=== PATIENT | male | born 1940 | race Caucasian/White ===

== ENCOUNTER 2017-02-03 13:26 | Inpatient (IN) | payer MEDICARE, OTHER ==
[2017-02-03] VITALS (10 sets, daily range): BP systolic 124–156; BP diastolic 76–113
[~2017-02-03] VITALS: Ht 177.8 cm; Wt 69.9 kg
[2017-02-03 15:52] LABS: HCO3 ABG 28 mmol/L (21-28); PCO2 ABG 33 mmHg (35-46); PO2 ABG 83 mmHg (65-108); SAT O2 ABG 96 % (92-99)
[2017-02-03] MEDS ORDERED: VANCOMYCIN PER PHARMACY MC PRN (16:00)
[2017-02-03 16:03] LABS: FIO2 ABG 35; PH ABG 7.55 (7.35-7.45)
[2017-02-03] MEDS ORDERED: HYDR-2666 PO (16:20)
[2017-02-03] MEDS ORDERED: VANC1VIA3 IV (16:20)
[2017-02-03] MEDS ORDERED: FOLI1TAB16 PO (16:20)
[2017-02-03] MEDS ORDERED: MULT-246 PO (16:20)
[2017-02-03] MEDS ORDERED: AMIO200T2 PO (16:20)
[2017-02-03] MEDS ORDERED: IPRA3AMP NEB (16:20)
[2017-02-03] MEDS ORDERED: ACET325T21 PO (16:20)
[2017-02-03] MEDS ORDERED: THIA100T8 PO (16:20)
[2017-02-03] MEDS ORDERED: PRED-220 PO (16:20)
[2017-02-03] MEDS ORDERED: BISA10SU2 RC (16:20)
[2017-02-03] MEDS ORDERED: LEVO250P IV (16:20)
[2017-02-03] MEDS ORDERED: CHLO1LIQ MC (16:20)
[2017-02-03] MEDS ORDERED: FAMO20TA5 PO (16:20)
[2017-02-03] MEDS ORDERED: FURO40TA4 PO (16:20)
[2017-02-03] MEDS ORDERED: ASPI81TA2 PO (16:20)
[2017-02-03] MEDS ORDERED: PIPE3.3710 IV (16:20)
[2017-02-03] MEDS ORDERED: VANCOMYCIN 1.75 GM in IV NORMAL SALINE 500ML BAG 500 ML IV ONE (16:30)
[2017-02-03] MEDS ORDERED: VANCOMYCIN 1 GM in IV NORMAL SALINE 250ML 250 ML IV SCH (17:00)
[2017-02-03] MEDS: MICAFUNGIN 100 MG in IV DEXTROSE 5% 100 ML IV SCH (19:01)
[2017-02-03] MEDS: PIPERACILLIN/TAZOBACTAM 3.375 GM in IV NORMAL SALINE 50ML 50 ML IV SCH (19:45)
[2017-02-03 21:15] LABS: BASO % 0 % (0-3); EOS % 0 % (0-3); HEMATOCRIT 24.2 % (39.0-53.0); HEMOGLOBIN 7.9 g/dL (13.0-17.5); LYMPH # 0.4 x10^3/uL (1.0-4.8); LYMPH % 2 % (24-48); MEAN CORPUSCULAR HEMOGLOBIN 33 pg (25-35); MEAN CORPUSCULAR HGB CONC 33 g/dL (31-37); MEAN CORPUSCULAR VOLUME 102 fL (79-100); MONO % 11 % (0-9); NEUT % 87 % (31-73); PLATELET COUNT 59 x10^3/uL (140-400); RED BLOOD COUNT 2.38 x10^6/uL (4.30-5.70); RED CELL DISTRIBUTION WIDTH 21.6 % (11.5-14.5)
[2017-02-03 21:23] LABS: INR 1.1 (0.8-1.1); PROTHROMBIN TIME PATIENT 13.9 SEC (11.7-14.0)
[2017-02-03 21:35] LABS: ALBUMIN 2.2 g/dL (3.4-5.0); ALBUMIN/GLOBULIN RATIO 0.6 (1.0-1.7); CREATININE 0.9 mg/dL (0.7-1.3); GFR 81.6; MAGNESIUM 2.5 mg/dL (1.8-2.4); POTASSIUM 3.8 mmol/L (3.5-5.1); TOTAL BILIRUBIN 0.8 mg/dL (0.2-1.0); TOTAL PROTEIN 5.8 g/dL (6.4-8.2)
[2017-02-03 21:42] LABS: PLT ESTIMATE DECREASED (ADEQUATE)
[2017-02-03 21:43] LABS: ANISOCYTOSIS MOD; POLYCHROMASIA SLIGHT
--- NOTE | 2017-02-03 22:30 | HP ---
ADMIT DATE: 02/03/2017 CHIEF COMPLAINT: Respiratory failure, probable sepsis. HISTORY OF PRESENT ILLNESS: The patient is a pleasant elderly male who I have been caring for at [facility] for the past few days. He actually was at [facility] within the past week where he had developed fulminant respiratory failure and ended up with a tracheostomy and PEG. Basically today when I saw him, he was crashing. He just did not look good. His pressures were highly variant from [address] down to 70 systolically. He was tachypneic, tachycardic. His pH was off at 7.55 on his ABG. I decided to go ahead and transfer him here to the facility. I talked to Dr. Velasco just before he came here. He is now in the ICU room 107 where he is slightly improved, but very ill. PAST MEDICAL HISTORY: Alcohol abuse, recent pneumonia, respiratory failure, trach, PEG, appendectomy, hiatal hernia, hip surgery, back surgeries with hardware. He has got a spinal stimulator, acute myocardial infarction with stents, COPD. ALLERGIES: TETRACYCLINE. FAMILY HISTORY: Coronary artery disease. SOCIAL HISTORY: He used to work in [employer]. He drinks a lot of beer and Black Russians according to his . He quit smoking years ago, but has COPD. He has been for 35 years. They have 3 children and 2 stepchildren. MEDICATIONS: Reviewed, please refer to the MRAD. REVIEW OF SYSTEMS: Unobtainable, the patient is on the vent. PHYSICAL EXAMINATION: VITAL SIGNS: Temperature 100.9, respirations 28, blood pressure 152/70, O2 sat 95%. He is currently on 35%. GENERAL: He is sedated. HEART: Distant S1, S2, tachycardic. LUNGS: Coarse. ABDOMEN: Soft, decreased bowel sounds. EXTREMITIES: 1+ edema. SKIN: He has got multiple tears. Please see the pictures. ENDOCRINE: No thyromegaly. LYMPHATICS: No cervical nodes. HEMATOPOIETIC: He has got multiple bruises. LABORATORY DATA: Pending. ASSESSMENT AND PLAN: Probable sepsis in an elderly male who already has respiratory failure, on the vent with a trach, with a percutaneous endoscopic gastrostomy and multiple comorbidities. His prognosis is quite poor. I explained to the family that he may not make it through this, but we are going to do our best. They understand. They are reasonable. They have made him a do not resuscitate. For now, we are giving broad spectrum antibiotics, antifungals. We have consulted Infectious Disease. We certainly appreciate Dr. Holguin's input. We will schuster culture him, consult Dr. Velasco for vent management, ICU monitoring. PROGNOSIS: Guarded. Total time today 49 minutes. CHAYITO HERRERA DO DR: CARI/gita JOB#: [id number] / [id number]
[2017-02-03] MEDS: ACETAMINOPHEN 650 MG/20.3 ML SOLUTION. PEG PRN (23:53)
[2017-02-04] VITALS (22 sets, daily range): BP systolic 98–172; BP diastolic 59–106
[2017-02-04] MEDS: PIPERACILLIN/TAZOBACTAM 3.375 GM in IV NORMAL SALINE 50ML 50 ML IV SCH ×4 (00:38→18:24)
[2017-02-04 06:26] LABS: ALBUMIN 2.1 g/dL (3.4-5.0); ALBUMIN/GLOBULIN RATIO 0.7 (1.0-1.7); CALCIUM 7.9 mg/dL (8.5-10.1); CREATININE 0.9 mg/dL (0.7-1.3); GFR 81.6; MAGNESIUM 2.6 mg/dL (1.8-2.4); POTASSIUM 3.7 mmol/L (3.5-5.1); TOTAL BILIRUBIN 0.9 mg/dL (0.2-1.0); TOTAL PROTEIN 5.2 g/dL (6.4-8.2)
--- NOTE | 2017-02-04 07:18 | PDOC ---
Infectious Disease Note Vital Sign Vital Signs Vital Signs Date Time Temp Pulse Resp B/P Pulse Ox O2 Delivery O2 Flow Rate FiO2 02/04/17 05:40 100 Ventilator 02/04/17 05:00 121 18 135/85 02/04/17 03:00 98.5 98.5 Labs Lab Laboratory Tests Test 02/03/17 07:24 02/03/17 15:30 02/03/17 19:54 02/04/17 00:06 White Blood Count 22.0x10^3/uL (4.0-11.0) Red Blood Count 2.38x10^6/uL (4.30-5.70) Hemoglobin 7.9g/dL (13.0-17.5) Hematocrit 24.2% (39.0-53.0) Mean Corpuscular Volume 102fL (79-100) Mean Corpuscular Hemoglobin 33pg (25-35) Mean Corpuscular Hemoglobin Concent 33g/dL (31-37) Red Cell Distribution Width 21.6% (11.5-14.5) Platelet Count 59x10^3/uL (140-400) Neutrophils (%) (Auto) 87% (31-73) Lymphocytes (%) (Auto) 2% (24-48) Monocytes (%) (Auto) 11% (0-9) Eosinophils (%) (Auto) 0% (0-3) Basophils (%) (Auto) 0% (0-3) Neutrophils # (Auto) 19.1x10^3uL (1.8-7.7) Lymphocytes # (Auto) 0.4x10^3/uL (1.0-4.8) Monocytes # (Auto) 2.5x10^3/uL (0.0-1.1) Eosinophils # (Auto) 0.0x10^3/uL (0.0-0.7) Basophils # (Auto) 0.0x10^3/uL (0.0-0.2) Segmented Neutrophils % 59% (35-66) Band Neutrophils % 22% (0-9) Lymphocytes % 4% (24-48) Monocytes % 11% (0-10) Metamyelocytes % 2% (0-0) Myelocytes % 2% (0-0) Platelet Estimate Decreased (ADEQUATE) Polychromasia Slight Anisocytosis Mod Prothrombin Time 13.9SEC (11.7-14.0) Prothromb Time International Ratio 1.1 (0.8-1.1) Sodium Level 141mmol/L (136-145) Potassium Level 3.8mmol/L (3.5-5.1) Chloride Level 103mmol/L (98-107) Carbon Dioxide Level 32mmol/L (21-32) Anion Gap 6 (6-14) Blood Urea Nitrogen 33mg/dL (8-26) Creatinine 0.9mg/dL (0.7-1.3) Estimated GFR (Cockcroft-Gault) 81.6 BUN/Creatinine Ratio 37 (6-20) Glucose Level 109mg/dL (70-99) Calcium Level 8.0mg/dL (8.5-10.1) Magnesium Level 2.5mg/dL (1.8-2.4) Total Bilirubin 0.8mg/dL (0.2-1.0) Aspartate Amino Transf (AST/SGOT) 41U/L (15-37) Alanine Aminotransferase (ALT/SGPT) 43U/L (16-63) Alkaline Phosphatase 169U/L (46-116) Total Protein 5.8g/dL (6.4-8.2) Albumin 2.2g/dL (3.4-5.0) Albumin/Globulin Ratio 0.6 (1.0-1.7) O2 Saturation 96% (92-99) Arterial Blood pH 7.55 (7.35-7.45) Arterial Blood pCO2 at Patient Temp 33mmHg (35-46) Arterial Blood pO2 at Patient Temp 83mmHg (65-108) Arterial Blood HCO3 28mmol/L (21-28) Arterial Blood Base Excess 5mmol/L (-3-3) FiO2 35 Lactic Acid Level 2.2mmol/L (0.4-2.0) Glucose (Fingerstick) 85mg/dL (70-99) Test 02/04/17 05:51 02/04/17 05:53 Glucose (Fingerstick) 112mg/dL (70-99) Sodium Level 144mmol/L (136-145) Potassium Level 3.7mmol/L (3.5-5.1) Chloride Level 105mmol/L (98-107) Carbon Dioxide Level 32mmol/L (21-32) Anion Gap 7 (6-14) Blood Urea Nitrogen 36mg/dL (8-26) Creatinine 0.9mg/dL (0.7-1.3) Estimated GFR (Cockcroft-Gault) 81.6 BUN/Creatinine Ratio 40 (6-20) Glucose Level 122mg/dL (70-99) Calcium Level 7.9mg/dL (8.5-10.1) Magnesium Level 2.6mg/dL (1.8-2.4) Total Bilirubin 0.9mg/dL (0.2-1.0) Aspartate Amino Transf (AST/SGOT) 37U/L (15-37) Alanine Aminotransferase (ALT/SGPT) 40U/L (16-63) Alkaline Phosphatase 155U/L (46-116) Total Protein 5.2g/dL (6.4-8.2) Albumin 2.1g/dL (3.4-5.0) Albumin/Globulin Ratio 0.7 (1.0-1.7) Objective Assessment Fever - despite Vanc/Levoflox/Zosyn 02/01 Leukocytosis Encephalopathy Tetracycline allergy Afib H/o MRSA pneumonia H/o [place] H/o AFB sputum sent to [facility] 01/29. Grew too rapidly for TB. D/w [place] micro this am Archnoid cyst right hemisphere S/p Trach/PEG Plan Plan of Care I dc'd Levofloxacin with Afib Per report a PICC was removed at [facility] I added Micafungin last evening I Cont Zosyn/Vanc and repeated blood cults 02/03 Will now change Vanc to Zyvox MRI head - neurology consulted F/u labs this am including Procalcitonin and cults from [facility] D/w [facility] - they have not received any cults yet Thank you Reviewed [facility] record Critically ill 35 mins CC time # [id number] HARRIET CORDERO MD Feb 04, 2017 07:18
--- NOTE | 2017-02-04 07:38 | RAD ---
Portable chest, 02/04/2017: History: Sepsis No previous radiographs are available at this time for comparison purposes. A tracheostomy tube is in place in satisfactory position. A spinal stimulator lead is projected over the lower thoracic spinal canal. The heart size is normal. There is calcific plaquing of aorta. There are patchy bilateral pulmonary infiltrates, most prominent in the right parahilar region and both lung bases. The underlying pulmonary vascularity is poorly defined. There is blunting of the lateral costophrenic angles compatible with a small amount of pleural fluid. Apical pleural-parenchymal opacities, right greater than left, are probably due to scarring. There appears to be fissural extension of pleural fluid laterally on the right. IMPRESSION: 1. Patchy bilateral pulmonary infiltrates suggesting pulmonary edema and/or pneumonia. 2. Small bilateral pleural effusions. 3. Probable underlying pleural-parenchymal scarring.
[2017-02-04] MEDS ORDERED: ONDANSETRON PF 4 MG/2 ML VIAL. IV PRN (08:00)
[2017-02-04] MEDS ORDERED: HYDROCODONE/APAP 5/325MG TABLET. PO PRN (08:00)
[2017-02-04] MEDS ORDERED: BISACODYL 10 MG SUPP.RECT. RC PRN (08:00)
[2017-02-04 08:07] LABS: BASO % 0 % (0-3); EOS % 0 % (0-3); HEMOGLOBIN 7.7 g/dL (13.0-17.5); LYMPH # 0.3 x10^3/uL (1.0-4.8); LYMPH % 1 % (24-48); MEAN CORPUSCULAR HEMOGLOBIN 33 pg (25-35); MEAN CORPUSCULAR HGB CONC 32 g/dL (31-37); MEAN CORPUSCULAR VOLUME 103 fL (79-100); MONO % 17 % (0-9); NEUT % 82 % (31-73); PLATELET COUNT 56 x10^3/uL (140-400); RED BLOOD COUNT 2.34 x10^6/uL (4.30-5.70); WHITE BLOOD COUNT 22.7 x10^3/uL (4.0-11.0)
[2017-02-04] MEDS: IPRATRPIUM/ALBUTEROL 0.5/2.5MG 3 ML NEBU. NEB SCH ×4 (08:32→19:26)
[2017-02-04] MEDS ORDERED: PANTOPRAZOLE IV PUSH 40 MG VIAL. IVP SCH (09:00)
[2017-02-04] MEDS: MULTIVITAMIN with MINERAL TABLET. PO SCH (09:00)
[2017-02-04 09:05] LABS: BILIRUBIN,URINE NEGATIVE (NEG); GLUCOSE,URINE NEGATIVE (NEG); NITRITE,URINE NEGATIVE (NEG); PROTEIN,URINE 100 mg/dL (NEG-TRACE); UROBILINOGEN,URINE 0.2 mg/dL (0.2 mg/dL)
--- NOTE | 2017-02-04 09:25 | PDOC ---
PULMONARY PROGRESS NOTES Vitals Vital Signs Date Time Temp Pulse Resp B/P Pulse Ox O2 Delivery O2 Flow Rate FiO2 02/04/17 08:32 100 Ventilator 02/04/17 05:00 121 18 135/85 02/04/17 03:00 98.5 98.5 Labs Laboratory Tests Test 02/03/17 07:24 02/03/17 15:30 02/03/17 19:54 02/04/17 00:06 White Blood Count 22.0x10^3/uL (4.0-11.0) Red Blood Count 2.38x10^6/uL (4.30-5.70) Hemoglobin 7.9g/dL (13.0-17.5) Hematocrit 24.2% (39.0-53.0) Mean Corpuscular Volume 102fL (79-100) Mean Corpuscular Hemoglobin 33pg (25-35) Mean Corpuscular Hemoglobin Concent 33g/dL (31-37) Red Cell Distribution Width 21.6% (11.5-14.5) Platelet Count 59x10^3/uL (140-400) Neutrophils (%) (Auto) 87% (31-73) Lymphocytes (%) (Auto) 2% (24-48) Monocytes (%) (Auto) 11% (0-9) Eosinophils (%) (Auto) 0% (0-3) Basophils (%) (Auto) 0% (0-3) Neutrophils # (Auto) 19.1x10^3uL (1.8-7.7) Lymphocytes # (Auto) 0.4x10^3/uL (1.0-4.8) Monocytes # (Auto) 2.5x10^3/uL (0.0-1.1) Eosinophils # (Auto) 0.0x10^3/uL (0.0-0.7) Basophils # (Auto) 0.0x10^3/uL (0.0-0.2) Segmented Neutrophils % 59% (35-66) Band Neutrophils % 22% (0-9) Lymphocytes % 4% (24-48) Monocytes % 11% (0-10) Metamyelocytes % 2% (0-0) Myelocytes % 2% (0-0) Platelet Estimate Decreased (ADEQUATE) Polychromasia Slight Anisocytosis Mod Prothrombin Time 13.9SEC (11.7-14.0) Prothromb Time International Ratio 1.1 (0.8-1.1) Sodium Level 141mmol/L (136-145) Potassium Level 3.8mmol/L (3.5-5.1) Chloride Level 103mmol/L (98-107) Carbon Dioxide Level 32mmol/L (21-32) Anion Gap 6 (6-14) Blood Urea Nitrogen 33mg/dL (8-26) Creatinine 0.9mg/dL (0.7-1.3) Estimated GFR (Cockcroft-Gault) 81.6 BUN/Creatinine Ratio 37 (6-20) Glucose Level 109mg/dL (70-99) Calcium Level 8.0mg/dL (8.5-10.1) Magnesium Level 2.5mg/dL (1.8-2.4) Total Bilirubin 0.8mg/dL (0.2-1.0) Aspartate Amino Transf (AST/SGOT) 41U/L (15-37) Alanine Aminotransferase (ALT/SGPT) 43U/L (16-63) Alkaline Phosphatase 169U/L (46-116) Total Protein 5.8g/dL (6.4-8.2) Albumin 2.2g/dL (3.4-5.0) Albumin/Globulin Ratio 0.6 (1.0-1.7) O2 Saturation 96% (92-99) Arterial Blood pH 7.55 (7.35-7.45) Arterial Blood pCO2 at Patient Temp 33mmHg (35-46) Arterial Blood pO2 at Patient Temp 83mmHg (65-108) Arterial Blood HCO3 28mmol/L (21-28) Arterial Blood Base Excess 5mmol/L (-3-3) FiO2 35 Lactic Acid Level 2.2mmol/L (0.4-2.0) Glucose (Fingerstick) 85mg/dL (70-99) Test 02/04/17 05:51 02/04/17 05:53 02/04/17 07:55 Glucose (Fingerstick) 112mg/dL (70-99) Sodium Level 144mmol/L (136-145) Potassium Level 3.7mmol/L (3.5-5.1) Chloride Level 105mmol/L (98-107) Carbon Dioxide Level 32mmol/L (21-32) Anion Gap 7 (6-14) Blood Urea Nitrogen 36mg/dL (8-26) Creatinine 0.9mg/dL (0.7-1.3) Estimated GFR (Cockcroft-Gault) 81.6 BUN/Creatinine Ratio 40 (6-20) Glucose Level 122mg/dL (70-99) Calcium Level 7.9mg/dL (8.5-10.1) Magnesium Level 2.6mg/dL (1.8-2.4) Total Bilirubin 0.9mg/dL (0.2-1.0) Aspartate Amino Transf (AST/SGOT) 37U/L (15-37) Alanine Aminotransferase (ALT/SGPT) 40U/L (16-63) Alkaline Phosphatase 155U/L (46-116) Total Protein 5.2g/dL (6.4-8.2) Albumin 2.1g/dL (3.4-5.0) Albumin/Globulin Ratio 0.7 (1.0-1.7) White Blood Count 22.7x10^3/uL (4.0-11.0) Red Blood Count 2.34x10^6/uL (4.30-5.70) Hemoglobin 7.7g/dL (13.0-17.5) Hematocrit 24.0% (39.0-53.0) Mean Corpuscular Volume 103fL (79-100) Mean Corpuscular Hemoglobin 33pg (25-35) Mean Corpuscular Hemoglobin Concent 32g/dL (31-37) Red Cell Distribution Width 22.0% (11.5-14.5) Platelet Count 56x10^3/uL (140-400) Neutrophils (%) (Auto) 82% (31-73) Lymphocytes (%) (Auto) 1% (24-48) Monocytes (%) (Auto) 17% (0-9) Eosinophils (%) (Auto) 0% (0-3) Basophils (%) (Auto) 0% (0-3) Neutrophils # (Auto) 18.5x10^3uL (1.8-7.7) Lymphocytes # (Auto) 0.3x10^3/uL (1.0-4.8) Monocytes # (Auto) 3.9x10^3/uL (0.0-1.1) Eosinophils # (Auto) 0.0x10^3/uL (0.0-0.7) Basophils # (Auto) 0.0x10^3/uL (0.0-0.2) Procalcitonin 0.23ng/mL (0.00-0.10) Laboratory Tests Test 02/03/17 15:30 02/03/17 19:54 02/04/17 00:06 02/04/17 05:51 O2 Saturation 96% (92-99) Arterial Blood pH 7.55 (7.35-7.45) Arterial Blood pCO2 at Patient Temp 33mmHg (35-46) Arterial Blood pO2 at Patient Temp 83mmHg (65-108) Arterial Blood HCO3 28mmol/L (21-28) Arterial Blood Base Excess 5mmol/L (-3-3) FiO2 35 Lactic Acid Level 2.2mmol/L (0.4-2.0) Glucose (Fingerstick) 85mg/dL (70-99) 112mg/dL (70-99) Test 02/04/17 05:53 02/04/17 07:55 Sodium Level 144mmol/L (136-145) Potassium Level 3.7mmol/L (3.5-5.1) Chloride Level 105mmol/L (98-107) Carbon Dioxide Level 32mmol/L (21-32) Anion Gap 7 (6-14) Blood Urea Nitrogen 36mg/dL (8-26) Creatinine 0.9mg/dL (0.7-1.3) Estimated GFR (Cockcroft-Gault) 81.6 BUN/Creatinine Ratio 40 (6-20) Glucose Level 122mg/dL (70-99) Calcium Level 7.9mg/dL (8.5-10.1) Magnesium Level 2.6mg/dL (1.8-2.4) Total Bilirubin 0.9mg/dL (0.2-1.0) Aspartate Amino Transf (AST/SGOT) 37U/L (15-37) Alanine Aminotransferase (ALT/SGPT) 40U/L (16-63) Alkaline Phosphatase 155U/L (46-116) Total Protein 5.2g/dL (6.4-8.2) Albumin 2.1g/dL (3.4-5.0) Albumin/Globulin Ratio 0.7 (1.0-1.7) White Blood Count 22.7x10^3/uL (4.0-11.0) Red Blood Count 2.34x10^6/uL (4.30-5.70) Hemoglobin 7.7g/dL (13.0-17.5) Hematocrit 24.0% (39.0-53.0) Mean Corpuscular Volume 103fL (79-100) Mean Corpuscular Hemoglobin 33pg (25-35) Mean Corpuscular Hemoglobin Concent 32g/dL (31-37) Red Cell Distribution Width 22.0% (11.5-14.5) Platelet Count 56x10^3/uL (140-400) Neutrophils (%) (Auto) 82% (31-73) Lymphocytes (%) (Auto) 1% (24-48) Monocytes (%) (Auto) 17% (0-9) Eosinophils (%) (Auto) 0% (0-3) Basophils (%) (Auto) 0% (0-3) Neutrophils # (Auto) 18.5x10^3uL (1.8-7.7) Lymphocytes # (Auto) 0.3x10^3/uL (1.0-4.8) Monocytes # (Auto) 3.9x10^3/uL (0.0-1.1) Eosinophils # (Auto) 0.0x10^3/uL (0.0-0.7) Basophils # (Auto) 0.0x10^3/uL (0.0-0.2) Procalcitonin 0.23ng/mL (0.00-0.10) Medications Active Scripts Medications Dose Route/Sig Days Date Category Duoneb 0.5-3(2.5) Mg/3 Ml (Albuterol/Ipratropium) 3 Ml Ampul.neb 3 Ml NEB QID 02/03/17 Reported Hydrocodone-Apap 5-325 (Hydrocodone Bit/Acetaminophen) 1 Each Tablet 0.5 Tab PO PRN Q4HRS PRN 02/03/17 Reported Amiodarone Hcl 200 Mg Tablet 1 Tab PO DAILY 02/03/17 Reported Aspirin 81 Mg Tab.chew 1 Tab PO DAILY 02/03/17 Reported Bisacodyl 10 Mg Supp.rect 10 Mg RC PRN BID PRN 02/03/17 Reported Chlorhexidine Flavor (Chlorhexidine) 1 Ml Liquid 1 Ml MC BID 02/03/17 Reported Folic Acid 1 Mg Tablet 1 Tab PO DAILY 02/03/17 Reported Furosemide 40 Mg Tablet 1 Tab PO DAILY 02/03/17 Reported Multi-Vitamin Daily (Multivitamin) 1 Each Tablet 1 Each PO DAILY16 02/03/17 Reported Thiamine Hcl 100 Mg Tablet 100 Mg PO DAILY 02/03/17 Reported Prednisone 10 Mg Tablet 10 Mg PO DAILY 02/03/17 Reported Acetaminophen 325 Mg Tablet 650 Mg PO PRN Q6HRS PRN 02/03/17 Reported Famotidine 20 Mg Tablet 20 Mg PO BID 02/03/17 Reported Levofloxacin-D5w 250 Mg/50 Ml (Levofloxacin/D5w) 250 Mg/50 Ml Piggyback 250 Mg IV Q24H 02/03/17 Reported Piperacil-Tazobact 3.375 Gm Vl (Piperacillin Sodium/Tazobactam) 3.375 Gm Vial 3.375 Gm IV Q6HRS 02/03/17 Reported Vancomycin Hcl 1 Gm Vial 1 Gm IV DAILY 02/03/17 Reported Impression . [id number] A/C/ RESP FAILURE SEC TO NEW SEPSIS POA FEVER TOXIC/METABOLIC ENCEPHALOPATHY HAD SEVERAL DISCUSSION WITH FAMILY, IF NO SIGNIFICANT IMPROVEMENT IN NEXT 24 HOURS THEY ARE CONSIDERING WITHDRAWAL OF CARE AND ALLOW NATURAL ROSALES CALHOUN MD Feb 04, 2017 09:25
--- NOTE | 2017-02-04 09:28 | PDOC ---
PROGRESS NOTES Chief Complaint Chief Complaint 1. Lung CA stage 4 with mets 2. Dysphagia and chronic encephalopathy with indwelling trach and PEG 3. 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 S/p sepsis 5. SIRS, possibly new sepsis again 6. AOCD 7. LEukocytosis 8. Thrombocytopenia 9. DNR History of Present Illness History of Present Illness Sinus tachy Non verbal - baseline? Antibiotics.antifungal adjusted by ID CXR: I have personally reviewed: IMPRESSION: 1. Patchy bilateral pulmonary infiltrates suggesting pulmonary edema and/or pneumonia. 2. Small bilateral pleural effusions. 3. Probable underlying pleural-parenchymal scarring. No UA yet MAR reviewed, on ASA, platelets low side K 3.8, getting PO lasix 40 qD LActate 2.2 PLAn: Ok to start kcl 20 PEG daily LAbs daily Nutrition consult for TF Follow ID recs SCDs only (low [platelets) May hold ASA for now, risk of bleeding Await UA REcheck lactate libby AM Monitor fevers DNR Vitals Vitals Vital Signs Date Time Temp Pulse Resp B/P Pulse Ox O2 Delivery O2 Flow Rate FiO2 02/04/17 05:40 100 Ventilator 02/04/17 05:00 121 18 135/85 02/04/17 03:00 98.5 98.5 Physical Exam General: No acute distress Heart: Other (sinus tachy) Abdomen: Normal bowel sounds, Soft, Other (pos pEG) Extremities: No clubbing, No cyanosis Skin: No rashes Labs LABS Laboratory Tests Test 02/03/17 15:30 02/03/17 19:54 02/04/17 00:06 02/04/17 05:51 O2 Saturation 96% (92-99) Arterial Blood pH 7.55 (7.35-7.45) Arterial Blood pCO2 at Patient Temp 33mmHg (35-46) Arterial Blood pO2 at Patient Temp 83mmHg (65-108) Arterial Blood HCO3 28mmol/L (21-28) Arterial Blood Base Excess 5mmol/L (-3-3) FiO2 35 Lactic Acid Level 2.2mmol/L (0.4-2.0) Glucose (Fingerstick) 85mg/dL (70-99) 112mg/dL (70-99) Test 02/04/17 05:53 02/04/17 07:55 Sodium Level 144mmol/L (136-145) Potassium Level 3.7mmol/L (3.5-5.1) Chloride Level 105mmol/L (98-107) Carbon Dioxide Level 32mmol/L (21-32) Anion Gap 7 (6-14) Blood Urea Nitrogen 36mg/dL (8-26) Creatinine 0.9mg/dL (0.7-1.3) Estimated GFR (Cockcroft-Gault) 81.6 BUN/Creatinine Ratio 40 (6-20) Glucose Level 122mg/dL (70-99) Calcium Level 7.9mg/dL (8.5-10.1) Magnesium Level 2.6mg/dL (1.8-2.4) Total Bilirubin 0.9mg/dL (0.2-1.0) Aspartate Amino Transf (AST/SGOT) 37U/L (15-37) Alanine Aminotransferase (ALT/SGPT) 40U/L (16-63) Alkaline Phosphatase 155U/L (46-116) Total Protein 5.2g/dL (6.4-8.2) Albumin 2.1g/dL (3.4-5.0) Albumin/Globulin Ratio 0.7 (1.0-1.7) White Blood Count 22.7x10^3/uL (4.0-11.0) Red Blood Count 2.34x10^6/uL (4.30-5.70) Hemoglobin 7.7g/dL (13.0-17.5) Hematocrit 24.0% (39.0-53.0) Mean Corpuscular Volume 103fL (79-100) Mean Corpuscular Hemoglobin 33pg (25-35) Mean Corpuscular Hemoglobin Concent 32g/dL (31-37) Red Cell Distribution Width 22.0% (11.5-14.5) Platelet Count 56x10^3/uL (140-400) Neutrophils (%) (Auto) 82% (31-73) Lymphocytes (%) (Auto) 1% (24-48) Monocytes (%) (Auto) 17% (0-9) Eosinophils (%) (Auto) 0% (0-3) Basophils (%) (Auto) 0% (0-3) Neutrophils # (Auto) 18.5x10^3uL (1.8-7.7) Lymphocytes # (Auto) 0.3x10^3/uL (1.0-4.8) Monocytes # (Auto) 3.9x10^3/uL (0.0-1.1) Eosinophils # (Auto) 0.0x10^3/uL (0.0-0.7) Basophils # (Auto) 0.0x10^3/uL (0.0-0.2) Procalcitonin 0.23ng/mL (0.00-0.10) Review of Systems Review of Systems non verbal Assessment and Plan Assessmemt and Plan Problems Medical Problems: (1) Acute respiratory failure Status: Acute Problems: Comment Review of Relevant I have reviewed the following items yon (where applicable) has been applied. Labs Laboratory Tests Test 02/03/17 07:24 02/03/17 15:30 02/03/17 19:54 02/04/17 00:06 White Blood Count 22.0x10^3/uL (4.0-11.0) Red Blood Count 2.38x10^6/uL (4.30-5.70) Hemoglobin 7.9g/dL (13.0-17.5) Hematocrit 24.2% (39.0-53.0) Mean Corpuscular Volume 102fL (79-100) Mean Corpuscular Hemoglobin 33pg (25-35) Mean Corpuscular Hemoglobin Concent 33g/dL (31-37) Red Cell Distribution Width 21.6% (11.5-14.5) Platelet Count 59x10^3/uL (140-400) Neutrophils (%) (Auto) 87% (31-73) Lymphocytes (%) (Auto) 2% (24-48) Monocytes (%) (Auto) 11% (0-9) Eosinophils (%) (Auto) 0% (0-3) Basophils (%) (Auto) 0% (0-3) Neutrophils # (Auto) 19.1x10^3uL (1.8-7.7) Lymphocytes # (Auto) 0.4x10^3/uL (1.0-4.8) Monocytes # (Auto) 2.5x10^3/uL (0.0-1.1) Eosinophils # (Auto) 0.0x10^3/uL (0.0-0.7) Basophils # (Auto) 0.0x10^3/uL (0.0-0.2) Segmented Neutrophils % 59% (35-66) Band Neutrophils % 22% (0-9) Lymphocytes % 4% (24-48) Monocytes % 11% (0-10) Metamyelocytes % 2% (0-0) Myelocytes % 2% (0-0) Platelet Estimate Decreased (ADEQUATE) Polychromasia Slight Anisocytosis Mod Prothrombin Time 13.9SEC (11.7-14.0) Prothromb Time International Ratio 1.1 (0.8-1.1) Sodium Level 141mmol/L (136-145) Potassium Level 3.8mmol/L (3.5-5.1) Chloride Level 103mmol/L (98-107) Carbon Dioxide Level 32mmol/L (21-32) Anion Gap 6 (6-14) Blood Urea Nitrogen 33mg/dL (8-26) Creatinine 0.9mg/dL (0.7-1.3) Estimated GFR (Cockcroft-Gault) 81.6 BUN/Creatinine Ratio 37 (6-20) Glucose Level 109mg/dL (70-99) Calcium Level 8.0mg/dL (8.5-10.1) Magnesium Level 2.5mg/dL (1.8-2.4) Total Bilirubin 0.8mg/dL (0.2-1.0) Aspartate Amino Transf (AST/SGOT) 41U/L (15-37) Alanine Aminotransferase (ALT/SGPT) 43U/L (16-63) Alkaline Phosphatase 169U/L (46-116) Total Protein 5.8g/dL (6.4-8.2) Albumin 2.2g/dL (3.4-5.0) Albumin/Globulin Ratio 0.6 (1.0-1.7) O2 Saturation 96% (92-99) Arterial Blood pH 7.55 (7.35-7.45) Arterial Blood pCO2 at Patient Temp 33mmHg (35-46) Arterial Blood pO2 at Patient Temp 83mmHg (65-108) Arterial Blood HCO3 28mmol/L (21-28) Arterial Blood Base Excess 5mmol/L (-3-3) FiO2 35 Lactic Acid Level 2.2mmol/L (0.4-2.0) Glucose (Fingerstick) 85mg/dL (70-99) Test 02/04/17 05:51 02/04/17 05:53 02/04/17 07:55 Glucose (Fingerstick) 112mg/dL (70-99) Sodium Level 144mmol/L (136-145) Potassium Level 3.7mmol/L (3.5-5.1) Chloride Level 105mmol/L (98-107) Carbon Dioxide Level 32mmol/L (21-32) Anion Gap 7 (6-14) Blood Urea Nitrogen 36mg/dL (8-26) Creatinine 0.9mg/dL (0.7-1.3) Estimated GFR (Cockcroft-Gault) 81.6 BUN/Creatinine Ratio 40 (6-20) Glucose Level 122mg/dL (70-99) Calcium Level 7.9mg/dL (8.5-10.1) Magnesium Level 2.6mg/dL (1.8-2.4) Total Bilirubin 0.9mg/dL (0.2-1.0) Aspartate Amino Transf (AST/SGOT) 37U/L (15-37) Alanine Aminotransferase (ALT/SGPT) 40U/L (16-63) Alkaline Phosphatase 155U/L (46-116) Total Protein 5.2g/dL (6.4-8.2) Albumin 2.1g/dL (3.4-5.0) Albumin/Globulin Ratio 0.7 (1.0-1.7) White Blood Count 22.7x10^3/uL (4.0-11.0) Red Blood Count 2.34x10^6/uL (4.30-5.70) Hemoglobin 7.7g/dL (13.0-17.5) Hematocrit 24.0% (39.0-53.0) Mean Corpuscular Volume 103fL (79-100) Mean Corpuscular Hemoglobin 33pg (25-35) Mean Corpuscular Hemoglobin Concent 32g/dL (31-37) Red Cell Distribution Width 22.0% (11.5-14.5) Platelet Count 56x10^3/uL (140-400) Neutrophils (%) (Auto) 82% (31-73) Lymphocytes (%) (Auto) 1% (24-48) Monocytes (%) (Auto) 17% (0-9) Eosinophils (%) (Auto) 0% (0-3) Basophils (%) (Auto) 0% (0-3) Neutrophils # (Auto) 18.5x10^3uL (1.8-7.7) Lymphocytes # (Auto) 0.3x10^3/uL (1.0-4.8) Monocytes # (Auto) 3.9x10^3/uL (0.0-1.1) Eosinophils # (Auto) 0.0x10^3/uL (0.0-0.7) Basophils # (Auto) 0.0x10^3/uL (0.0-0.2) Procalcitonin 0.23ng/mL (0.00-0.10) Laboratory Tests Test 02/03/17 15:30 02/03/17 19:54 02/04/17 00:06 02/04/17 05:51 O2 Saturation 96% (92-99) Arterial Blood pH 7.55 (7.35-7.45) Arterial Blood pCO2 at Patient Temp 33mmHg (35-46) Arterial Blood pO2 at Patient Temp 83mmHg (65-108) Arterial Blood HCO3 28mmol/L (21-28) Arterial Blood Base Excess 5mmol/L (-3-3) FiO2 35 Lactic Acid Level 2.2mmol/L (0.4-2.0) Glucose (Fingerstick) 85mg/dL (70-99) 112mg/dL (70-99) Test 02/04/17 05:53 02/04/17 07:55 Sodium Level 144mmol/L (136-145) Potassium Level 3.7mmol/L (3.5-5.1) Chloride Level 105mmol/L (98-107) Carbon Dioxide Level 32mmol/L (21-32) Anion Gap 7 (6-14) Blood Urea Nitrogen 36mg/dL (8-26) Creatinine 0.9mg/dL (0.7-1.3) Estimated GFR (Cockcroft-Gault) 81.6 BUN/Creatinine Ratio 40 (6-20) Glucose Level 122mg/dL (70-99) Calcium Level 7.9mg/dL (8.5-10.1) Magnesium Level 2.6mg/dL (1.8-2.4) Total Bilirubin 0.9mg/dL (0.2-1.0) Aspartate Amino Transf (AST/SGOT) 37U/L (15-37) Alanine Aminotransferase (ALT/SGPT) 40U/L (16-63) Alkaline Phosphatase 155U/L (46-116) Total Protein 5.2g/dL (6.4-8.2) Albumin 2.1g/dL (3.4-5.0) Albumin/Globulin Ratio 0.7 (1.0-1.7) White Blood Count 22.7x10^3/uL (4.0-11.0) Red Blood Count 2.34x10^6/uL (4.30-5.70) Hemoglobin 7.7g/dL (13.0-17.5) Hematocrit 24.0% (39.0-53.0) Mean Corpuscular Volume 103fL (79-100) Mean Corpuscular Hemoglobin 33pg (25-35) Mean Corpuscular Hemoglobin Concent 32g/dL (31-37) Red Cell Distribution Width 22.0% (11.5-14.5) Platelet Count 56x10^3/uL (140-400) Neutrophils (%) (Auto) 82% (31-73) Lymphocytes (%) (Auto) 1% (24-48) Monocytes (%) (Auto) 17% (0-9) Eosinophils (%) (Auto) 0% (0-3) Basophils (%) (Auto) 0% (0-3) Neutrophils # (Auto) 18.5x10^3uL (1.8-7.7) Lymphocytes # (Auto) 0.3x10^3/uL (1.0-4.8) Monocytes # (Auto) 3.9x10^3/uL (0.0-1.1) Eosinophils # (Auto) 0.0x10^3/uL (0.0-0.7) Basophils # (Auto) 0.0x10^3/uL (0.0-0.2) Procalcitonin 0.23ng/mL (0.00-0.10) Medications Current Medications Vancomycin HCl 1 each 1 each PRN DAILY PRN MC SEE COMMENTS Last administered on 02/03/17t 16:14; Start 02/03/17 at 16:00; Stop 02/04/17 at 07:12; Status DC Piperacillin Sod/ Tazobactam Sod 3.375 gm/Sodium Chloride 50 ml @ 100 mls/hr Q6HRS IV Last administered on 02/04/17 05:38; Start 02/03/17 at 18:00 Micafungin Sodium 100 mg/Dextrose 100 ml @ 100 mls/hr Q24H IV Last administered on 02/03/17 19:01; Start 02/03/17 at 16:00 Vancomycin HCl 1.75 gm/Sodium Chloride 500 ml @ 250 mls/hr 1X ONCE IV ; Start 02/03/17 at 16:30; Stop 02/03/17 at 18:29; Status Cancel Vancomycin HCl/ Sodium Chloride (Iv Sodium Chloride 0.9% 250ml) 250 ml @ 250 mls/hr Q24H IV Last administered on 02/03/17 17:22; Start 02/03/17 at 17:00; Stop 02/04/17 at 07:12; Status DC Acetaminophen 650 mg 650 mg PRN Q6HRS PRN PEG MILD PAIN / TEMP Last administered on 02/03/17 23:53; Start 02/03/17 at 23:45 Linezolid (Zyvox Premix) 300 ml @ 300 mls/hr Q12HR IV Last administered on 02/04 08:33; Start 02/04/17 at 09:00 Ondansetron HCl (Zofran) 4 mg PRN Q6HRS PRN IV NAUSEA/VOMITING; Start 02/04/17 at 08:00 Pantoprazole Sodium (Protonix Vial) 40 mg DAILYAC IVP ; Start 02/04/17 at 09:00 Amiodarone HCl (Cordarone) 200 mg DAILY PO ; Start 02/04/17 at 09:00 Bisacodyl (Dulcolax Supp) 10 mg PRN BID PRN RC CONSTIPATION; Start 02/04/17 at 08:00 Famotidine (Pepcid) 20 mg BID PO ; Start 02/04/17 at 09:00 Folic Acid (Folic Acid) 1 mg DAILY PO ; Start 02/04/17 at 09:00 Furosemide (Lasix) 40 mg DAILY PO ; Start 02/04/17 at 09:00 Acetaminophen/ Hydrocodone Bitart (Lortab 5/325) 0.5 tab PRN Q4HRS PRN PO PAIN ; Start 02/04/17 at 08:00 Albuterol/ Ipratropium (Duoneb) 3 ml QID NEB Last administered on 02/04/17t 08: 32; Start 02/04/17 at 09:00 Prednisone (Prednisone) 10 mg DAILY PO ; Start 02/04/17 at 09:00 Thiamine HCl (Vitamin B-1) 100 mg DAILY PO ; Start 02/04/17 at 09:00 Chlorhexidine Gluconate (Peridex) 1 ml BID MM ; Start 02/04/17 at 09:00 Multivitamins (Thera M Plus) 1 tab DAILY PO ; Start 02/04/17 at 09:00 Potassium Chloride (KCl Oral Soln) 20 meq DAILY PEG ; Start 02/05/17 at 09:00; Status UNV Active Scripts Active Reported Duoneb 0.5-3(2.5) Mg/3 Ml (Albuterol/Ipratropium) 3 Ml Ampul.neb 3 Ml NEB QID Hydrocodone-Apap 5-325 (Hydrocodone Bit/Acetaminophen) 1 Each Tablet 0.5 Tab PO PRN Q4HRS PRN Amiodarone Hcl 200 Mg Tablet 1 Tab PO DAILY Aspirin 81 Mg Tab.chew 1 Tab PO DAILY Bisacodyl 10 Mg Supp.rect 10 Mg RC PRN BID PRN Chlorhexidine Flavor (Chlorhexidine) 1 Ml Liquid 1 Ml MC BID Folic Acid 1 Mg Tablet 1 Tab PO DAILY Furosemide 40 Mg Tablet 1 Tab PO DAILY Multi-Vitamin Daily (Multivitamin) 1 Each Tablet 1 Each PO DAILY16 Thiamine Hcl 100 Mg Tablet 100 Mg PO DAILY Prednisone 10 Mg Tablet 10 Mg PO DAILY Acetaminophen 325 Mg Tablet 650 Mg PO PRN Q6HRS PRN Famotidine 20 Mg Tablet 20 Mg PO BID Levofloxacin-D5w 250 Mg/50 Ml (Levofloxacin/D5w) 250 Mg/50 Ml Piggyback 250 Mg IV Q24H Piperacil-Tazobact 3.375 Gm Vl (Piperacillin Sodium/Tazobactam) 3.375 Gm Vial 3.375 Gm IV Q6HRS Vancomycin Hcl 1 Gm Vial 1 Gm IV DAILY Vitals/I & O Vital Sign - Last 24 Hours 02/03/17 02/03/17 02/03/17 02/03/17 15:00 15:00 15:00 15:30 Temp 101.9 101.9 Pulse 126 120 Resp 14 14 B/P 149/113 155/94 Pulse Ox 98 98 98 O2 Delivery Mechanical Ventilator Ventilator Ventilator 02/03/17 02/03/17 02/03/17 02/03/17 16:00 16:30 17:00 17:30 Temp 100.5 100.5 Pulse 120 118 118 Resp 14 14 14 B/P 150/96 153/106 156/96 Pulse Ox 98 99 99 O2 Delivery Ventilator Ventilator Ventilator 02/03/17 02/03/17 02/03/17 02/03/17 17:46 19:30 19:30 19:53 Temp 100.7 100.7 Pulse 120 Resp 26 B/P 149/96 Pulse Ox 99 98 99 O2 Delivery Ventilator Mechanical Ventilator Ventilator 02/03/17 02/03/17 02/03/17 02/03/17 20:00 21:00 21:45 22:15 Pulse 122 119 125 Resp 25 27 27 B/P 155/91 124/80 133/79 Pulse Ox 98 98 99 99 O2 Delivery Ventilator Ventilator Ventilator Ventilator 02/03/17 02/03/17 02/03/17 02/04/17 23:00 23:00 23:35 00:00 Temp 103.1 103.1 Pulse 121 113 Resp 25 18 B/P 137/76 147/85 Pulse Ox 93 99 100 O2 Delivery Mechanical Ventilator Ventilator Ventilator Ventilator 02/04/17 02/04/17 02/04/17 02/04/17 01:00 01:50 02:00 03:00 Temp 98.7 98.5 98.7 98.5 Pulse 105 115 92 Resp 18 18 18 B/P 104/61 98/63 99/59 Pulse Ox 99 99 99 99 O2 Delivery Ventilator Ventilator Ventilator Ventilator 02/04/17 02/04/17 02/04/17 02/04/17 04:00 04:00 04:15 05:00 Pulse 82 121 Resp 18 18 B/P 109/73 135/85 Pulse Ox 100 100 100 O2 Delivery Mechanical Ventilator Ventilator Ventilator Ventilator 02/04/17 05:40 Pulse Ox 100 O2 Delivery Ventilator Intake and Output 02/03/17 02/03/17 02/04/17 15:00 23:00 07:00 Output Total 235 ml 180 ml Balance -235 ml -180 ml BARRY SILVEIRA MD Feb 04, 2017 09:28
[2017-02-04] MEDS: FUROSEMIDE 40 MG TABLET. PO SCH (09:30)
[2017-02-04] MEDS: THIAMINE 100 MG TABLET. PO SCH (09:30)
[2017-02-04] MEDS: FAMOTIDINE 20 MG TABLET. PO SCH ×2 (09:30→20:48)
[2017-02-04] MEDS: PREDNISONE 10 MG TABLET PO SCH (09:30)
[2017-02-04] MEDS: CHLORHEXIDINE 0.12% 15 ML MOUTHWASH. MM SCH ×2 (09:30→20:47)
[2017-02-04] MEDS: FOLIC ACID 1 MG TABLET. PO SCH (09:31)
[2017-02-04] MEDS: AMIODARONE HCL 200 MG TABLET. PO SCH (09:32)
[2017-02-04 09:35] LABS: BACTERIA,URINE 0 /HPF (0-FEW); RBC,URINE 20-40 /HPF (0-2); WBC,URINE 0 /HPF (0-4)
--- NOTE | 2017-02-04 10:14 | PDOC2 ---
NEUROLOGY CONSULT Date of Admission Date of Admission DATE: 02/04/17 TIME: 09:38 Reason for Consult Reason for Consult: Altered mental status, Posturing Referring Physician Referring Physician: Dr. Lara Source Source: Chart review History of Present Illness History of Present Illness The patient is a 76-year-old male who transferred her from [facility] yesterday because of fever. He had a prolonged hospital stay in [facility] for restaurant failure and pneumonia. He required intubation there and ultimately had a tracheostomy. He was also found on a CT scan to have a large low attenuation lesion involving much of the right lateral hemisphere consistent with arachnoid or epidermal cyst. Brain MRI was planned, but has not been carried out. There is no listed history of seizure. I'm asked to see the patient because he has been noted to have posturing. Dr. Fregoso started Decadron and Keppra , but these were not continued her Past Medical History Cardiovascular: CAD, MD, Hyperlipidemia Pulmonary: COPD Musculoskeletal: low back pain, Osteoarthritis Past Surgical History Past Surgical History: Appendectomy, Total hip replacement, Other (Coronary stent, tracheostomy, hiatal hernia) Family History Family History: No pertinent hx Social History Social History Ex-smoker Current Medications Current Medications Current Medications Vancomycin HCl 1 each 1 each PRN DAILY PRN MC SEE COMMENTS Last administered on 02/03/17 16:14; Start 02/03/17 at 16:00; Stop 02/04/17 at 07:12; Status DC Piperacillin Sod/ Tazobactam Sod 3.375 gm/Sodium Chloride 50 ml @ 100 mls/hr Q6HRS IV Last administered on 02/04/17 05:38; Start 02/03/17 at 18:00 Micafungin Sodium 100 mg/Dextrose 100 ml @ 100 mls/hr Q24H IV Last administered on 02/03/17 19:01; Start 02/03/17 at 16:00 Vancomycin HCl 1.75 gm/Sodium Chloride 500 ml @ 250 mls/hr 1X ONCE IV ; Start 02/03/17 at 16:30; Stop 02/03/17 at 18:29; Status Cancel Vancomycin HCl/ Sodium Chloride (Iv Sodium Chloride 0.9% 250ml) 250 ml @ 250 mls/hr Q24H IV Last administered on 02/03/17 17:22; Start 02/03/17 at 17:00; Stop 02/04/17 at 07:12; Status DC Acetaminophen 650 mg 650 mg PRN Q6HRS PRN PEG MILD PAIN / TEMP Last administered on 02/03/17 23:53; Start 02/03/17 at 23:45 Linezolid (Zyvox Premix) 300 ml @ 300 mls/hr Q12HR IV Last administered on 02/04 08:33; Start 02/04/17 at 09:00 Ondansetron HCl (Zofran) 4 mg PRN Q6HRS PRN IV NAUSEA/VOMITING; Start 02/04/17 at 08:00 Pantoprazole Sodium (Protonix Vial) 40 mg DAILYAC IVP ; Start 02/04/17 at 09:00 Amiodarone HCl (Cordarone) 200 mg DAILY PO Last administered on 02/04/17 09:32 ; Start 02/04/17 at 09:00 Bisacodyl (Dulcolax Supp) 10 mg PRN BID PRN RC CONSTIPATION; Start 02/04/17 at 08:00 Famotidine (Pepcid) 20 mg BID PO Last administered on 02/04/17 09:30; Start 02/04/17 at 09:00 Folic Acid (Folic Acid) 1 mg DAILY PO Last administered on 02/04/17 09:31; Start 02/04/17 at 09:00 Furosemide (Lasix) 40 mg DAILY PO Last administered on 02/04/17 09:30; Start at 09:00 Acetaminophen/ Hydrocodone Bitart (Lortab 5/325) 0.5 tab PRN Q4HRS PRN PO PAIN ; Start 02/04/17 at 08:00 Albuterol/ Ipratropium (Duoneb) 3 ml QID NEB Last administered on 02/04/17 08: 32; Start 02/04/17 at 09:00 Prednisone (Prednisone) 10 mg DAILY PO Last administered on 02/04/17 09:30; Start 02/04/17 at 09:00 Thiamine HCl (Vitamin B-1) 100 mg DAILY PO Last administered on 02/04/17 09:30 ; Start 02/04/17 at 09:00 Chlorhexidine Gluconate (Peridex) 1 ml BID MM Last administered on 4/3/17at 09: 30; Start 02/04/17 at 09:00 Multivitamins (Thera M Plus) 1 tab DAILY PO ; Start 02/04/17 at 09:00 Potassium Chloride (KCl Oral Soln) 20 meq DAILY PEG ; Start 02/04/17 at 10:00 Active Scripts Active Reported Duoneb 0.5-3(2.5) Mg/3 Ml (Albuterol/Ipratropium) 3 Ml Ampul.neb 3 Ml NEB QID Hydrocodone-Apap 5-325 (Hydrocodone Bit/Acetaminophen) 1 Each Tablet 0.5 Tab PO PRN Q4HRS PRN Amiodarone Hcl 200 Mg Tablet 1 Tab PO DAILY Aspirin 81 Mg Tab.chew 1 Tab PO DAILY Bisacodyl 10 Mg Supp.rect 10 Mg RC PRN BID PRN Chlorhexidine Flavor (Chlorhexidine) 1 Ml Liquid 1 Ml MC BID Folic Acid 1 Mg Tablet 1 Tab PO DAILY Furosemide 40 Mg Tablet 1 Tab PO DAILY Multi-Vitamin Daily (Multivitamin) 1 Each Tablet 1 Each PO DAILY16 Thiamine Hcl 100 Mg Tablet 100 Mg PO DAILY Prednisone 10 Mg Tablet 10 Mg PO DAILY Acetaminophen 325 Mg Tablet 650 Mg PO PRN Q6HRS PRN Famotidine 20 Mg Tablet 20 Mg PO BID Levofloxacin-D5w 250 Mg/50 Ml (Levofloxacin/D5w) 250 Mg/50 Ml Piggyback 250 Mg IV Q24H Piperacil-Tazobact 3.375 Gm Vl (Piperacillin Sodium/Tazobactam) 3.375 Gm Vial 3.375 Gm IV Q6HRS Vancomycin Hcl 1 Gm Vial 1 Gm IV DAILY Allergies Allergies: Coded Allergies: Tetracyclines (Unverified Allergy, Intermediate, 02/03/17) ROS Review of System Not obtainable Physical Exam Physical Examination PHYSICAL EXAMINATION: Vital signs: see above. General appearance is normal and in no acute distress. HEENT: Normocephalic and nontraumatic. Eyes, nose, ears, and throat are unremarkable. Neck is supple. No lymphadenopathy. No bruits are heard over the carotid artery. No crepitus. Tracheostomy. NEUROLOGIC: Right pupil is larger than the left. Pupils both react to light. There is no facial asymmetry. He does not respond to loud voice. He does not respond to pain. There is some posturing of the upper extremities with no movement in the lower extremity. Reflexes are 1+ with silent plantar responses. He does not cooperate with tests of coordination and sensation. Vitals VITALS Vital Signs Date Time Temp Pulse Resp B/P Pulse Ox O2 Delivery O2 Flow Rate FiO2 02/04/17 09:32 119 126/63 02/04/17 08:32 100 Ventilator 02/04/17 05:00 18 02/04/17 03:00 98.5 98.5 Labs Labs Laboratory Tests Test 02/03/17 07:24 02/03/17 15:30 02/03/17 19:54 02/04/17 00:06 White Blood Count 22.0x10^3/uL (4.0-11.0) Red Blood Count 2.38x10^6/uL (4.30-5.70) Hemoglobin 7.9g/dL (13.0-17.5) Hematocrit 24.2% (39.0-53.0) Mean Corpuscular Volume 102fL (79-100) Mean Corpuscular Hemoglobin 33pg (25-35) Mean Corpuscular Hemoglobin Concent 33g/dL (31-37) Red Cell Distribution Width 21.6% (11.5-14.5) Platelet Count 59x10^3/uL (140-400) Neutrophils (%) (Auto) 87% (31-73) Lymphocytes (%) (Auto) 2% (24-48) Monocytes (%) (Auto) 11% (0-9) Eosinophils (%) (Auto) 0% (0-3) Basophils (%) (Auto) 0% (0-3) Neutrophils # (Auto) 19.1x10^3uL (1.8-7.7) Lymphocytes # (Auto) 0.4x10^3/uL (1.0-4.8) Monocytes # (Auto) 2.5x10^3/uL (0.0-1.1) Eosinophils # (Auto) 0.0x10^3/uL (0.0-0.7) Basophils # (Auto) 0.0x10^3/uL (0.0-0.2) Segmented Neutrophils % 59% (35-66) Band Neutrophils % 22% (0-9) Lymphocytes % 4% (24-48) Monocytes % 11% (0-10) Metamyelocytes % 2% (0-0) Myelocytes % 2% (0-0) Platelet Estimate Decreased (ADEQUATE) Polychromasia Slight Anisocytosis Mod Prothrombin Time 13.9SEC (11.7-14.0) Prothromb Time International Ratio 1.1 (0.8-1.1) Sodium Level 141mmol/L (136-145) Potassium Level 3.8mmol/L (3.5-5.1) Chloride Level 103mmol/L (98-107) Carbon Dioxide Level 32mmol/L (21-32) Anion Gap 6 (6-14) Blood Urea Nitrogen 33mg/dL (8-26) Creatinine 0.9mg/dL (0.7-1.3) Estimated GFR (Cockcroft-Gault) 81.6 BUN/Creatinine Ratio 37 (6-20) Glucose Level 109mg/dL (70-99) Calcium Level 8.0mg/dL (8.5-10.1) Magnesium Level 2.5mg/dL (1.8-2.4) Total Bilirubin 0.8mg/dL (0.2-1.0) Aspartate Amino Transf (AST/SGOT) 41U/L (15-37) Alanine Aminotransferase (ALT/SGPT) 43U/L (16-63) Alkaline Phosphatase 169U/L (46-116) Total Protein 5.8g/dL (6.4-8.2) Albumin 2.2g/dL (3.4-5.0) Albumin/Globulin Ratio 0.6 (1.0-1.7) O2 Saturation 96% (92-99) Arterial Blood pH 7.55 (7.35-7.45) Arterial Blood pCO2 at Patient Temp 33mmHg (35-46) Arterial Blood pO2 at Patient Temp 83mmHg (65-108) Arterial Blood HCO3 28mmol/L (21-28) Arterial Blood Base Excess 5mmol/L (-3-3) FiO2 35 Lactic Acid Level 2.2mmol/L (0.4-2.0) Glucose (Fingerstick) 85mg/dL (70-99) Test 02/04/17 05:51 02/04/17 05:53 02/04/17 07:55 02/04/17 08:55 Glucose (Fingerstick) 112mg/dL (70-99) Sodium Level 144mmol/L (136-145) Potassium Level 3.7mmol/L (3.5-5.1) Chloride Level 105mmol/L (98-107) Carbon Dioxide Level 32mmol/L (21-32) Anion Gap 7 (6-14) Blood Urea Nitrogen 36mg/dL (8-26) Creatinine 0.9mg/dL (0.7-1.3) Estimated GFR (Cockcroft-Gault) 81.6 BUN/Creatinine Ratio 40 (6-20) Glucose Level 122mg/dL (70-99) Calcium Level 7.9mg/dL (8.5-10.1) Magnesium Level 2.6mg/dL (1.8-2.4) Total Bilirubin 0.9mg/dL (0.2-1.0) Aspartate Amino Transf (AST/SGOT) 37U/L (15-37) Alanine Aminotransferase (ALT/SGPT) 40U/L (16-63) Alkaline Phosphatase 155U/L (46-116) Total Protein 5.2g/dL (6.4-8.2) Albumin 2.1g/dL (3.4-5.0) Albumin/Globulin Ratio 0.7 (1.0-1.7) White Blood Count 22.7x10^3/uL (4.0-11.0) Red Blood Count 2.34x10^6/uL (4.30-5.70) Hemoglobin 7.7g/dL (13.0-17.5) Hematocrit 24.0% (39.0-53.0) Mean Corpuscular Volume 103fL (79-100) Mean Corpuscular Hemoglobin 33pg (25-35) Mean Corpuscular Hemoglobin Concent 32g/dL (31-37) Red Cell Distribution Width 22.0% (11.5-14.5) Platelet Count 56x10^3/uL (140-400) Neutrophils (%) (Auto) 82% (31-73) Lymphocytes (%) (Auto) 1% (24-48) Monocytes (%) (Auto) 17% (0-9) Eosinophils (%) (Auto) 0% (0-3) Basophils (%) (Auto) 0% (0-3) Neutrophils # (Auto) 18.5x10^3uL (1.8-7.7) Lymphocytes # (Auto) 0.3x10^3/uL (1.0-4.8) Monocytes # (Auto) 3.9x10^3/uL (0.0-1.1) Eosinophils # (Auto) 0.0x10^3/uL (0.0-0.7) Basophils # (Auto) 0.0x10^3/uL (0.0-0.2) Procalcitonin 0.23ng/mL (0.00-0.10) Urine Collection Type Void Urine Color Yellow Urine Clarity Clear Urine pH 5.0 Urine Specific Lyman 1.025 Urine Protein 100mg/dL (NEG-TRACE) Urine Glucose (UA) Negativemg/dL (NEG) Urine Ketones (Stick) Negativemg/dL (NEG) Urine Blood Small (NEG) Urine Nitrite Negative (NEG) Urine Bilirubin Negative (NEG) Urine Urobilinogen Dipstick 0.2mg/dL (0.2 mg/dL) Urine Leukocyte Esterase Negative (NEG) Urine RBC 20-40/HPF (0-2) Urine WBC 0/HPF (0-4) Urine Squamous Epithelial Cells None/LPF Urine Bacteria 0/HPF (0-FEW) Urine Mucus Slight/LPF Laboratory Tests Test 02/03/17 15:30 02/03/17 19:54 02/04/17 00:06 02/04/17 05:51 O2 Saturation 96% (92-99) Arterial Blood pH 7.55 (7.35-7.45) Arterial Blood pCO2 at Patient Temp 33mmHg (35-46) Arterial Blood pO2 at Patient Temp 83mmHg (65-108) Arterial Blood HCO3 28mmol/L (21-28) Arterial Blood Base Excess 5mmol/L (-3-3) FiO2 35 Lactic Acid Level 2.2mmol/L (0.4-2.0) Glucose (Fingerstick) 85mg/dL (70-99) 112mg/dL (70-99) Test 02/04/17 05:53 02/04/17 07:55 02/04/17 08:55 Sodium Level 144mmol/L (136-145) Potassium Level 3.7mmol/L (3.5-5.1) Chloride Level 105mmol/L (98-107) Carbon Dioxide Level 32mmol/L (21-32) Anion Gap 7 (6-14) Blood Urea Nitrogen 36mg/dL (8-26) Creatinine 0.9mg/dL (0.7-1.3) Estimated GFR (Cockcroft-Gault) 81.6 BUN/Creatinine Ratio 40 (6-20) Glucose Level 122mg/dL (70-99) Calcium Level 7.9mg/dL (8.5-10.1) Magnesium Level 2.6mg/dL (1.8-2.4) Total Bilirubin 0.9mg/dL (0.2-1.0) Aspartate Amino Transf (AST/SGOT) 37U/L (15-37) Alanine Aminotransferase (ALT/SGPT) 40U/L (16-63) Alkaline Phosphatase 155U/L (46-116) Total Protein 5.2g/dL (6.4-8.2) Albumin 2.1g/dL (3.4-5.0) Albumin/Globulin Ratio 0.7 (1.0-1.7) White Blood Count 22.7x10^3/uL (4.0-11.0) Red Blood Count 2.34x10^6/uL (4.30-5.70) Hemoglobin 7.7g/dL (13.0-17.5) Hematocrit 24.0% (39.0-53.0) Mean Corpuscular Volume 103fL (79-100) Mean Corpuscular Hemoglobin 33pg (25-35) Mean Corpuscular Hemoglobin Concent 32g/dL (31-37) Red Cell Distribution Width 22.0% (11.5-14.5) Platelet Count 56x10^3/uL (140-400) Neutrophils (%) (Auto) 82% (31-73) Lymphocytes (%) (Auto) 1% (24-48) Monocytes (%) (Auto) 17% (0-9) Eosinophils (%) (Auto) 0% (0-3) Basophils (%) (Auto) 0% (0-3) Neutrophils # (Auto) 18.5x10^3uL (1.8-7.7) Lymphocytes # (Auto) 0.3x10^3/uL (1.0-4.8) Monocytes # (Auto) 3.9x10^3/uL (0.0-1.1) Eosinophils # (Auto) 0.0x10^3/uL (0.0-0.7) Basophils # (Auto) 0.0x10^3/uL (0.0-0.2) Procalcitonin 0.23ng/mL (0.00-0.10) Urine Collection Type Void Urine Color Yellow Urine Clarity Clear Urine pH 5.0 Urine Specific Lyman 1.025 Urine Protein 100mg/dL (NEG-TRACE) Urine Glucose (UA) Negativemg/dL (NEG) Urine Ketones (Stick) Negativemg/dL (NEG) Urine Blood Small (NEG) Urine Nitrite Negative (NEG) Urine Bilirubin Negative (NEG) Urine Urobilinogen Dipstick 0.2mg/dL (0.2 mg/dL) Urine Leukocyte Esterase Negative (NEG) Urine RBC 20-40/HPF (0-2) Urine WBC 0/HPF (0-4) Urine Squamous Epithelial Cells None/LPF Urine Bacteria 0/HPF (0-FEW) Urine Mucus Slight/LPF Assessment/Plan Assessment/Plan Impression: 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 Thank you for letting me help with the patient's care EDWIN WALLACE MD Feb 04, 2017 10:14
--- NOTE | 2017-02-04 10:41 | PDOC ---
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 Outside NS eval at [facility] reportedly indicated no tx needed. CT head 02/01 with possible mets not noted on CT head 01/16- Repeat CT head here, also CT C/A/P given concern for mets Thrombocytopenia- Likely due to recent sepsis- Actually improving from outside labs Resp failure s/p trach and PEG 01/28 Recent concern at [facility] for right hemiparesis- ?if new CT head findings could be embolic strokes give A fib, no anticoag? S/P spinal stimulator- Cannot get MRIs. CRUZ SINGH DO Feb 04, 2017 10:41
[2017-02-04 11:48] LABS: HCO3 ABG 25 mmol/L (21-28); PCO2 ABG 31 mmHg (35-46); PH ABG 7.54 (7.35-7.45); PO2 ABG 92 mmHg (65-108); SAT O2 ABG 97 % (92-99)
[2017-02-04 11:50] LABS: FIO2 ABG 35
[2017-02-04] MEDS: POTASSIUM CHLORIDE 20 MEQ/15 ML ORAL LIQUID. PEG SCH (12:06)
[2017-02-04] MEDS ORDERED: CONTRAST GIVEN MC PRN (13:15)
[2017-02-04] MEDS ORDERED: IOHEXOL 300 MG/ML 75 ML VIAL IV ONE (13:30)
--- NOTE | 2017-02-04 14:50 | RAD ---
CT chest abdomen pelvis with IV contrast History: Possible metastatic disease, history of lung cancer. Comparison: None. Technique: After administration of oral and intravenous contrast, 75 mL Omnipaque 300, helical CT of the chest and abdomen was performed. One or more of the following individualized dose reduction techniques were utilized for the study: Automated exposure control Adjustment of mA and/or kV according to patient's size Use of iterative reconstruction technique. Findings: Tracheostomy tube is present. Right thyroid lobe demonstrates several low-density nodules. No chest lymphadenopathy is seen. Largest lymph node is a right lower paratracheal lymph node which measures 0.9 x 0.5 cm in axial dimension. No hilar lymphadenopathy is seen. Aortic atherosclerosis is present. Small amount of secretions is seen involving the distal trachea. Coronary artery calcifications are present. Cardiac chambers appear enlarged. No pericardial thickening is identified. There is evidence of pulmonary edema as well. Mild-moderate bilateral pleural effusions are seen. There is irregular consolidation involving the right apex which could measure up to 6 cm. Moderate-severe emphysematous changes of lungs are seen. Small irregular soft tissue pulmonary nodule measuring 11 mm is seen in the right lower lobe (series 2 image 49). Small irregular right lower lobe pulmonary nodule measuring 9 mm (series 2 image 56) is seen. A small right lower lobe pulmonary nodule measuring 4 mm (series 2 image 59) is seen. Irregular right upper lobe pulmonary nodule measuring 11 mm is seen (series 2 image 29). Irregular left upper lobe pulmonary nodule measuring 6 mm (series 2 image 51) is seen. Left upper lobe demonstrates 10 mm soft tissue pulmonary nodule (series 2 image 44). Gastrostomy tube is present. Liver, spleen, pancreas, and bilateral adrenal glands are unremarkable. Bilateral kidneys enhance symmetrically. Both kidneys demonstrate low-density lesions which are not well characterized on this examination secondary to streak artifact emanating from patient's spinal fusion hardware from L2 through S1. No abdominal or pelvic lymphadenopathy is seen. Aortoiliac atherosclerosis is present. Moderate body wall edema is seen. No suspicious osseous lesion is identified. Laminectomy changes are present from L2-S1. Impression: 1. Congestive heart failure with evidence of pulmonary edema and enlargement of cardiac silhouette. 2. Irregular consolidation at the right apex. This could represent a pneumonia versus large pulmonary mass. 3. Multiple nonspecific irregular soft tissue pulmonary nodules. Infectious versus inflammatory versus neoplastic causes are possible. 4. No metastatic lymphadenopathy identified in the chest. 5. Right thyroid nodules. 6. Moderate body wall edema. 7. No evidence of metastatic disease in the abdomen.
--- NOTE | 2017-02-04 15:05 | RAD ---
CT of the head with and without contrast, 02/04/2017: History: Hemiparesis, abnormal outside CT scan, recent hemiparesis Multidetector CT imaging was performed prior to and following an IV bolus injection of iodinated contrast material. There is a 6 cm extra-axial collection of fluid centered in the anterior aspect of the right middle cranial fossa. There is no associated mass effect. This may represent an arachnoid cyst or enlargement of the subarachnoid space due to a large old infarct. There is a 2.9 cm rim-like area of slightly increased density centered in the left basal ganglia. There is moderate surrounding edema and effacement of the left lateral ventricle at this level. No definite postcontrast enhancement of this lesion is seen. There are additional extensive lucencies throughout the deep white matter bilaterally. Some of these lucencies involve the cortex such as in the right parieto-occipital region. IMPRESSION: 1. 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 2. Left basal ganglia lesion with associated effacement of the left lateral ventricle. Diagnostic considerations include neoplasm, evolving hematoma, infarct or infection. 3. Severe bilateral deep white matter lucencies suggesting chronic ischemic change versus vasogenic edema. 4. Comparison with prior studies if available and/or MR scanning is suggested for further evaluation. PQRS Compliance Statement: One or more of the following individualized dose reduction techniques were utilized for this examination: 1. Automated exposure control 2. Adjustment of the mA and/or kV according to patient size 3. Use of iterative reconstruction technique
[2017-02-04] MEDS: PROPOFOL 100 ML IV PRN ×2 (15:56→20:48)
[2017-02-04] MEDS: MICAFUNGIN 100 MG in IV DEXTROSE 5% 100 ML IV SCH (15:57)
[2017-02-05] VITALS (24 sets, daily range): BP systolic 90–159; BP diastolic 55–94
[2017-02-05] MEDS: ACETAMINOPHEN 650 MG/20.3 ML SOLUTION. PEG PRN (00:50)
[2017-02-05] MEDS: PIPERACILLIN/TAZOBACTAM 3.375 GM in IV NORMAL SALINE 50ML 50 ML IV SCH ×2 (00:50→05:53)
--- NOTE | 2017-02-05 02:15 | CONS ---
DATE OF CONSULTATION: 02/04/2017 ONCOLOGY CONSULT NOTE REFERRING PROVIDER: Dr. Lara. REASON FOR CONSULTATION: Thrombocytopenia, questionable brain masses. HISTORY OF PRESENT ILLNESS: I have obtained all information today from chart review from his records at [facility]. The patient himself is not able to provide any additional information and no family is present. He was apparently admitted at [facility] recently for pneumonia and severe sepsis. He has known severe COPD. Apparently, at [facility], he had respiratory failure and failed two trials at weaning him. Therefore, a tracheostomy and PEG tube were recently placed. He was transferred to [facility] for attempted ventilatory weaning. He was only there for about 3 days when he was noted to have questionable right-sided hemiparesis. Therefore a CT head was performed. He apparently had had encephalopathy at [facility] as well, which was attributed to his sepsis and critical illness. Per review of records at [facility], he has history of a cerebral arachnoid cyst. He was apparently seen by Neurosurgery and no intervention was thought to be required previously. Per chart review, CT chest on 01/16/2017 showed emphysematous changes and consolidation involving the left lower lobe with small bilateral pleural effusions. CT head was done on January 16 which showed a large low attenuation lesion matching CSF involving much of the right lateral hemisphere with etiology favoring a large arachnoid cyst. There was no shift in midline structures seen. The patient apparently at [facility] had some questionable right-sided hemiparesis. Therefore, on February 01, a CT head was repeated which showed multiple areas of vasogenic edema in the left frontal lobe and basal ganglia and in the right occipital and parietal lobes thought to be most compatible with intracranial metastases. There also was again the 6 x 4 cm right temporal CSF density thought to represent a large arachnoid cyst. There was a 7 mm right to left subfalcine shift. It is not known to me at this time if this patient does have a history of cancer. Also, of note, we are asked to comment on his thrombocytopenia. I have reviewed CBCs from [facility] where his platelets were noted to be around 36. Here, they are around 60. His hemoglobin was recently 8.0, WBC 17.8 with strong neutrophil predominance. Chest x-ray here has been unremarkable. CBC remains relatively unchanged from his recent labs with again strong neutrophilic predominance, WBC 22,000, hemoglobin 8.0, platelets 60. CMP relatively unremarkable. PAST MEDICAL HISTORY: Again, all information obtained via chart review, alcohol abuse, recent pneumonia and respiratory failure, CAD status post MA and PCI, COPD, hyperlipidemia, degenerative joint disease, BPH. PAST SURGICAL HISTORY: Recent tracheostomy and PEG placement last month, appendectomy, hernia repair, right hip replacement, back surgery, spinal stimulator, PCI. FAMILY HISTORY: Heart disease. SOCIAL HISTORY: Strong alcohol and tobacco abuse. . REVIEW OF SYSTEMS: Unobtainable due to current patient's status. ALLERGIES: TETRACYCLINE. CURRENT MEDICATIONS: I reviewed his outside medication list and do not note any medications which would worsen his platelet count. Currently, his medication list at this hospital is as follows: Potassium chloride, multivitamin, Peridex, thiamine, prednisone, DuoNebs, Lasix, folic acid, Pepcid, amiodarone, Protonix, linezolid, Lortab, Dulcolax, Zofran, Tylenol, Zosyn and micafungin. PHYSICAL EXAMINATION: VITAL SIGNS: Temperature; upon admission his T-max was 101.9. Now he has remained afebrile overnight at 98.5, pulse is 121, respiratory rate 18, blood pressure 135/85, 100% O2 on mechanical ventilator. GENERAL: He is currently sedated, unresponsive to voice or physical touch. HEENT: Eyes closed. Tracheostomy in place. CARDIOVASCULAR: Heart is tachycardic and irregularly irregular. PULMONARY: Ventilated. No rhonchi or wheezing. ABDOMEN: Soft, nontender. EXTREMITIES: 1+ edema diffusely. SKIN: Several healing bruises present, no evidence of acute bruising at this time. NEUROLOGIC: Sedated. IMAGING AND LABS: Pertinent previous outside labs, notes, CT imaging reviewed as above. ASSESSMENT AND PLAN: The patient is a 76-year-old male with the following medical problems: 1. Recent abnormal CT head with possible intracranial metastases noted on outside CT from 02/01/2017, but not present on the CT head on 01/16/2017. Given his continued decline, I am going to repeat CT here. There were questionable metastases, so I will order CT chest, abdomen and pelvis as well. I do not know if he has any cancer history. 2. Anemia, thrombocytopenia, neutrophilia. Likely reactive to his underlying critical illness, sepsis. Infectious Disease has been consulted and he is on new antibiotic management. His platelet counts were actually improving from recent values a few days ago. His outside medication list did not reveal any culprit medications. 3. Recent respiratory failure requiring tracheostomy following pneumonia with severe sepsis. He remains ventilated now. 4. Probable 6 cm right temporal CSF density, thought to be related to a large arachnoid cyst. Reportedly, outside neurosurgery evaluation indicated no treatment was needed, but there apparently are new CT head findings of concern with recent possible neurologic decline. Will repeat CT head. He has a spinal stimulator so may not be able to get MRI brain. I discussed this information with Dr. Lara and will continue to follow along. CRUZ SINGH DO DR: HILLARY/gita JOB#: [id number] / [id number] EDE
--- NOTE | 2017-02-05 03:25 | CONS ---
DATE OF CONSULTATION: 02/04/2017 ATTENDING PHYSICIAN: Dr. Ene Lara. REASON FOR CONSULTATION: The patient is seen in pulmonary consultation at the request of Dr. Laar for acute on chronic respiratory failure, sepsis and mental status change. HISTORY OF PRESENT ILLNESS: The patient is a 76-year-old that was at [facility]. He has been there since 01/31/2017. He was initially admitted on 01/16/2017, at [facility], developing increasing shortness of breath. He had a consolidation in the right upper lobe and some reticular nodular [id number] opacities in the bases. The patient was admitted, underwent intubation secondary to acute respiratory failure. He ultimately underwent bronchoscopy on 01/18/2017, negative for pathology for malignancy, was treated for pneumonia, Zyvox, Zosyn, and micafungin. He also grew out methicillin-resistant Staphylococcus aureus pneumonia ____ from the bronchoscopy on 01/16/2017. He was transferred to [facility] for weaning. Yesterday, he became increasingly more short of air, had a high respiratory rate on the ventilator. There were signs of sepsis. There is also some concern about the possibility of metastatic INTRAOPERATIVE NEURO TECH lesion. The patient was transferred to [place] for further evaluation and management. PAST MEDICAL HISTORY: 1. Acute respiratory failure secondary to above. Prior to this admission, the patient was not wearing oxygen at home. 2. COPD. 3. Methicillin-resistant Staph aureus diagnosed in BAL of 01/17/2017. 4. New onset atrial fibrillation. 5. Cerebral arachnoid cyst that was initially seen during this hospitalization and [place], though he saw a neurosurgeon. No intervention was required or recommended at that time. 6. Hypertension. 7. Coronary artery disease with previous single vessel stent to the LAD. 8. Tobacco use. 9. Alcoholism. 10. Pulmonary hypertension. PAST SURGICAL HISTORY: 1. Status post tracheotomy and PEG and PTCA. 2. Repair of ruptured appendix on 01/23/2016. 3. Hernia repair in 2012. 4. Back surgery on 2003. 5. Hip replacement on the right. ALLERGIES: DOXYCYCLINE, MINOCYCLINE, TETRACYCLINE, TIGECYCLINE. REVIEW OF SYSTEMS: Unobtainable secondary to the patient's condition. PHYSICAL EXAMINATION: VITAL SIGNS: The patient was not sedated. His respiratory rate was high. He was breathing around 30-35. His sed rate was at 14. He was unresponsive. Otherwise, vital signs, he was hemodynamically stable at that time, he had a temperature of 103 yesterday, 103 today. HEENT: Eyes, the sclera was nonicteric. There was no oculocephalic reflex. Pupils were uneven. CHEST: Full expansion. LUNGS: Bilateral rhonchi. No wheezes. CARDIOVASCULAR: Irregular rate and rhythm with S1, S2, no S3. ABDOMEN: Soft, nontender, nondistended. PEG in place. EXTREMITIES: Some minimal edema. NEUROLOGIC: The patient had no oculocephalic reflex. He did not respond to pain or verbal stimuli. He was assisting the ventilator. LABORATORY DATA: White count was elevated at 22,000, hemoglobin and hematocrit were noted. INR was 1.1. Electrolytes were noted. Albumin upon admission was low at 2.2. Alkaline phosphatase was elevated. Calcium was low. Procalcitonin ordered today is elevated. UA was noted. Arterial blood gas revealed a respiratory alkalosis, pH of 7.54, pCO2 of 31, pO2 of 92. IMAGING STUDIES: I reviewed the imaging studies. CT of the chest revealed some evidence of irregular consolidation in the right apices. There were multiple nonspecific irregular soft tissue nodules. There was no evidence of metastatic lymphadenopathy. CT head report was noted. IMPRESSION: 1. Acute on chronic respiratory failure, multifactorial secondary to new onset sepsis. 2. History of methicillin-resistant Staph aureus pneumonia. BAL was performed on 01/17/2017, revealing methicillin resistant Staphylococcus aureus, cytology was negative for malignant cells. 3. New onset atrial fibrillation. 4. Metabolic toxic encephalopathy. 5. Cerebral arachnoid cyst, previously evaluated by Neurosurgery. No intervention was required or recommended. 6. Coronary artery disease with previous stent placement. 7. Severe protein malnutrition. 8. Alcoholism. 9. Status post tracheotomy. 10. Fever. PLAN: I had multiple discussions with the family including the son, the and [id number] who is a family practitioner. For now, we will proceed with aggressive support. The patient is a do not resuscitate candidate. Family will await the next 24 hours. If no significant improvement in his clinical status, they are considering withdrawal of support and allowing natural . We will continue current empiric antibiotics, sedate, mechanical support. Total cumulative critical care time of 50 minutes, the case was discussed with Dr. Anglin and family members as indicated above. ROSALES CALHOUN MD DR: No JOB#: [id number] / [id number]
[2017-02-05] MEDS: PROPOFOL 100 ML IV PRN ×2 (05:08→12:28)
[2017-02-05 06:04] LABS: BASO % 0 % (0-3); EOS % 0 % (0-3); LYMPH # 0.3 x10^3/uL (1.0-4.8); LYMPH % 1 % (24-48); MEAN CORPUSCULAR HEMOGLOBIN 33 pg (25-35); MEAN CORPUSCULAR HGB CONC 32 g/dL (31-37); MEAN CORPUSCULAR VOLUME 104 fL (79-100); MONO % 18 % (0-9); NEUT % 81 % (31-73); PLATELET COUNT 43 x10^3/uL (140-400); RED BLOOD COUNT 1.89 x10^6/uL (4.30-5.70); RED CELL DISTRIBUTION WIDTH 22.1 % (11.5-14.5); WHITE BLOOD COUNT 22.7 x10^3/uL (4.0-11.0)
[2017-02-05 06:14] LABS: HEMATOCRIT 19.7 % (39.0-53.0); HEMOGLOBIN 6.2 g/dL (13.0-17.5)
--- NOTE | 2017-02-05 07:24 | PDOC ---
Infectious Disease Note Subjective Subjective Not responsive ROS ROS Unobtainable Vital Sign Vital Signs Vital Signs Date Time Temp Pulse Resp B/P Pulse Ox O2 Delivery O2 Flow Rate FiO2 02/05/17 06:00 79 17 92/56 100 Ventilator 02/05/17 04:00 99.2 99.2 Physical Exam PHYSICAL EXAM GENERAL: NAD, appears comfortable HEENT: PERRL -small, NECK: Supple, no JVD, trach LUNGS: Clear HEART: S1S2, no gallop, no murmur ABD: Soft, NT, no organomegaly, no rebound. PEG EXT: Trace edema, no cyanosis COYOTE HUNTER: Sedated some SKIN: No rash IV: RUE clean Labs Lab Laboratory Tests Test 02/04/17 07:55 02/04/17 08:55 02/04/17 11:30 02/04/17 18:55 White Blood Count 22.7x10^3/uL (4.0-11.0) Red Blood Count 2.34x10^6/uL (4.30-5.70) Hemoglobin 7.7g/dL (13.0-17.5) Hematocrit 24.0% (39.0-53.0) Mean Corpuscular Volume 103fL (79-100) Mean Corpuscular Hemoglobin 33pg (25-35) Mean Corpuscular Hemoglobin Concent 32g/dL (31-37) Red Cell Distribution Width 22.0% (11.5-14.5) Platelet Count 56x10^3/uL (140-400) Neutrophils (%) (Auto) 82% (31-73) Lymphocytes (%) (Auto) 1% (24-48) Monocytes (%) (Auto) 17% (0-9) Eosinophils (%) (Auto) 0% (0-3) Basophils (%) (Auto) 0% (0-3) Neutrophils # (Auto) 18.5x10^3uL (1.8-7.7) Lymphocytes # (Auto) 0.3x10^3/uL (1.0-4.8) Monocytes # (Auto) 3.9x10^3/uL (0.0-1.1) Eosinophils # (Auto) 0.0x10^3/uL (0.0-0.7) Basophils # (Auto) 0.0x10^3/uL (0.0-0.2) Procalcitonin 0.23ng/mL (0.00-0.10) Urine Collection Type Void Urine Color Yellow Urine Clarity Clear Urine pH 5.0 Urine Specific [place] 1.025 Urine Protein 100mg/dL (NEG-TRACE) Urine Glucose (UA) Negativemg/dL (NEG) Urine Ketones (Stick) Negativemg/dL (NEG) Urine Blood Small (NEG) Urine Nitrite Negative (NEG) Urine Bilirubin Negative (NEG) Urine Urobilinogen Dipstick 0.2mg/dL (0.2 mg/dL) Urine Leukocyte Esterase Negative (NEG) Urine RBC 20-40/HPF (0-2) Urine WBC 0/HPF (0-4) Urine Squamous Epithelial Cells None/LPF Urine Bacteria 0/HPF (0-FEW) Urine Mucus Slight/LPF O2 Saturation 97% (92-99) Arterial Blood pH 7.54 (7.35-7.45) Arterial Blood pCO2 at Patient Temp 31mmHg (35-46) Arterial Blood pO2 at Patient Temp 92mmHg (65-108) Arterial Blood HCO3 25mmol/L (21-28) Arterial Blood Base Excess 3mmol/L (-3-3) FiO2 35 Glucose (Fingerstick) 114mg/dL (70-99) Test 02/05/17 00:24 02/05/17 05:50 Glucose (Fingerstick) 127mg/dL (70-99) White Blood Count 22.7x10^3/uL (4.0-11.0) Red Blood Count 1.89x10^6/uL (4.30-5.70) Hemoglobin 6.2g/dL (13.0-17.5) Hematocrit 19.7% (39.0-53.0) Mean Corpuscular Volume 104fL (79-100) Mean Corpuscular Hemoglobin 33pg (25-35) Mean Corpuscular Hemoglobin Concent 32g/dL (31-37) Red Cell Distribution Width 22.1% (11.5-14.5) Platelet Count 43x10^3/uL (140-400) Neutrophils (%) (Auto) 81% (31-73) Lymphocytes (%) (Auto) 1% (24-48) Monocytes (%) (Auto) 18% (0-9) Eosinophils (%) (Auto) 0% (0-3) Basophils (%) (Auto) 0% (0-3) Neutrophils # (Auto) 18.4x10^3uL (1.8-7.7) Lymphocytes # (Auto) 0.3x10^3/uL (1.0-4.8) Monocytes # (Auto) 4.0x10^3/uL (0.0-1.1) Eosinophils # (Auto) 0.0x10^3/uL (0.0-0.7) Basophils # (Auto) 0.0x10^3/uL (0.0-0.2) Objective Assessment Fever - despite Vanc/Levoflox/Zosyn 02/01. Now Zyvox/Micafungin/Zosyn. ? Central vs ID Acute Anemia Leukocytosis -stable Encephalopathy Tetracycline allergy Afib H/o MRSA pneumonia -CT now with pulm nodules/Right apex consolidation H/o [place] H/o AFB sputum sent to [facility] 01/29. Grew too rapidly for TB. D/w [place] micro Archnoid cyst right hemisphere - Abnormal CT head S/p Trach/PEG Plan Plan of Care D/w Lab Roc[facility]le this am re micro cults from [facility] - Blood/sputum neg at 48 hours. Another sputum with normal wilfredo Cont Zyvox/Micafungin Add Cefepime/Flagyl - D/w Pharmacy F/u labs and cults Poor prognosis HARRIET CORDERO MD Feb 05, 2017 07:24
[2017-02-05] MEDS: IPRATRPIUM/ALBUTEROL 0.5/2.5MG 3 ML NEBU. NEB SCH ×4 (07:45→19:52)
[2017-02-05] MEDS: CEFEPIME HCL 2 GM in IV NORMAL SALINE 100ML 100 ML IV SCH ×3 (08:00→21:43)
[2017-02-05 08:14] LABS: HCO3 ABG 28 mmol/L (21-28); PCO2 ABG 39 mmHg (35-46); PH ABG 7.48 (7.35-7.45); PO2 ABG 107 mmHg (65-108); SAT O2 ABG 98 % (92-99)
[2017-02-05 08:26] LABS: FIO2 ABG 35
[2017-02-05] MEDS: CHLORHEXIDINE 0.12% 15 ML MOUTHWASH. MM SCH ×2 (09:00→20:39)
--- NOTE | 2017-02-05 10:08 | PDOC ---
PROGRESS NOTES Chief Complaint Chief Complaint 1. Lung CA stage 4 with mets 2. Dysphagia and chronic encephalopathy with indwelling trach and PEG 3. 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 S/p sepsis 5. SIRS, possibly new sepsis again 6. AOCD 7. LEukocytosis 8. Thrombocytopenia 9. DNR 10. Precipitous drop in hgb (02/05/17) History of Present Illness History of Present Illness TAchy, afib HGb 6 plus today\ NO overt signs of bleeding Pt non verbal TF running via PEG at 25cc/hr On vent thru trach Heme onc has spoken with family, recommended palliative PLAn: Transfuse 1 pRBC PAlliative consult DNR CPM for now till palliative meet Vitals Vitals Vital Signs Date Time Temp Pulse Resp B/P Pulse Ox O2 Delivery O2 Flow Rate FiO2 02/05/17 09:16 100 Ventilator 02/05/17 06:00 79 17 92/56 02/05/17 04:00 99.2 99.2 Physical Exam General: No acute distress Heart: Other (sinus tachy) Abdomen: Normal bowel sounds, Soft, Other (pos pEG) Extremities: No clubbing, No cyanosis Skin: No rashes Labs LABS Laboratory Tests Test 02/04/17 11:30 02/04/17 18:55 02/05/17 00:24 02/05/17 05:50 O2 Saturation 97% (92-99) Arterial Blood pH 7.54 (7.35-7.45) Arterial Blood pCO2 at Patient Temp 31mmHg (35-46) Arterial Blood pO2 at Patient Temp 92mmHg (65-108) Arterial Blood HCO3 25mmol/L (21-28) Arterial Blood Base Excess 3mmol/L (-3-3) FiO2 35 Glucose (Fingerstick) 114mg/dL (70-99) 127mg/dL (70-99) White Blood Count 22.7x10^3/uL (4.0-11.0) Red Blood Count 1.89x10^6/uL (4.30-5.70) Hemoglobin 6.2g/dL (13.0-17.5) Hematocrit 19.7% (39.0-53.0) Mean Corpuscular Volume 104fL (79-100) Mean Corpuscular Hemoglobin 33pg (25-35) Mean Corpuscular Hemoglobin Concent 32g/dL (31-37) Red Cell Distribution Width 22.1% (11.5-14.5) Platelet Count 43x10^3/uL (140-400) Neutrophils (%) (Auto) 81% (31-73) Lymphocytes (%) (Auto) 1% (24-48) Monocytes (%) (Auto) 18% (0-9) Eosinophils (%) (Auto) 0% (0-3) Basophils (%) (Auto) 0% (0-3) Neutrophils # (Auto) 18.4x10^3uL (1.8-7.7) Lymphocytes # (Auto) 0.3x10^3/uL (1.0-4.8) Monocytes # (Auto) 4.0x10^3/uL (0.0-1.1) Eosinophils # (Auto) 0.0x10^3/uL (0.0-0.7) Basophils # (Auto) 0.0x10^3/uL (0.0-0.2) Test 02/05/17 08:02 O2 Saturation 98% (92-99) Arterial Blood pH 7.48 (7.35-7.45) Arterial Blood pCO2 at Patient Temp 39mmHg (35-46) Arterial Blood pO2 at Patient Temp 107mmHg (65-108) Arterial Blood HCO3 28mmol/L (21-28) Arterial Blood Base Excess 4mmol/L (-3-3) FiO2 35 Review of Systems Review of Systems non verbal, on vent thru trach Assessment and Plan Assessmemt and Plan Problems Medical Problems: (1) Acute respiratory failure Status: Acute Problems: Comment Review of Relevant I have reviewed the following items yon (where applicable) has been applied. Labs Laboratory Tests Test 02/03/17 15:30 02/03/17 19:54 02/04/17 00:06 02/04/17 05:51 O2 Saturation 96% (92-99) Arterial Blood pH 7.55 (7.35-7.45) Arterial Blood pCO2 at Patient Temp 33mmHg (35-46) Arterial Blood pO2 at Patient Temp 83mmHg (65-108) Arterial Blood HCO3 28mmol/L (21-28) Arterial Blood Base Excess 5mmol/L (-3-3) FiO2 35 Lactic Acid Level 2.2mmol/L (0.4-2.0) Glucose (Fingerstick) 85mg/dL (70-99) 112mg/dL (70-99) Test 02/04/17 05:53 02/04/17 07:55 02/04/17 08:55 02/04/17 11:30 Sodium Level 144mmol/L (136-145) Potassium Level 3.7mmol/L (3.5-5.1) Chloride Level 105mmol/L (98-107) Carbon Dioxide Level 32mmol/L (21-32) Anion Gap 7 (6-14) Blood Urea Nitrogen 36mg/dL (8-26) Creatinine 0.9mg/dL (0.7-1.3) Estimated GFR (Cockcroft-Gault) 81.6 BUN/Creatinine Ratio 40 (6-20) Glucose Level 122mg/dL (70-99) Calcium Level 7.9mg/dL (8.5-10.1) Magnesium Level 2.6mg/dL (1.8-2.4) Total Bilirubin 0.9mg/dL (0.2-1.0) Aspartate Amino Transf (AST/SGOT) 37U/L (15-37) Alanine Aminotransferase (ALT/SGPT) 40U/L (16-63) Alkaline Phosphatase 155U/L (46-116) Total Protein 5.2g/dL (6.4-8.2) Albumin 2.1g/dL (3.4-5.0) Albumin/Globulin Ratio 0.7 (1.0-1.7) White Blood Count 22.7x10^3/uL (4.0-11.0) Red Blood Count 2.34x10^6/uL (4.30-5.70) Hemoglobin 7.7g/dL (13.0-17.5) Hematocrit 24.0% (39.0-53.0) Mean Corpuscular Volume 103fL (79-100) Mean Corpuscular Hemoglobin 33pg (25-35) Mean Corpuscular Hemoglobin Concent 32g/dL (31-37) Red Cell Distribution Width 22.0% (11.5-14.5) Platelet Count 56x10^3/uL (140-400) Neutrophils (%) (Auto) 82% (31-73) Lymphocytes (%) (Auto) 1% (24-48) Monocytes (%) (Auto) 17% (0-9) Eosinophils (%) (Auto) 0% (0-3) Basophils (%) (Auto) 0% (0-3) Neutrophils # (Auto) 18.5x10^3uL (1.8-7.7) Lymphocytes # (Auto) 0.3x10^3/uL (1.0-4.8) Monocytes # (Auto) 3.9x10^3/uL (0.0-1.1) Eosinophils # (Auto) 0.0x10^3/uL (0.0-0.7) Basophils # (Auto) 0.0x10^3/uL (0.0-0.2) Procalcitonin 0.23ng/mL (0.00-0.10) Urine Collection Type Void Urine Color Yellow Urine Clarity Clear Urine pH 5.0 Urine Specific [place] 1.025 Urine Protein 100mg/dL (NEG-TRACE) Urine Glucose (UA) Negativemg/dL (NEG) Urine Ketones (Stick) Negativemg/dL (NEG) Urine Blood Small (NEG) Urine Nitrite Negative (NEG) Urine Bilirubin Negative (NEG) Urine Urobilinogen Dipstick 0.2mg/dL (0.2 mg/dL) Urine Leukocyte Esterase Negative (NEG) Urine RBC 20-40/HPF (0-2) Urine WBC 0/HPF (0-4) Urine Squamous Epithelial Cells None/LPF Urine Bacteria 0/HPF (0-FEW) Urine Mucus Slight/LPF O2 Saturation 97% (92-99) Arterial Blood pH 7.54 (7.35-7.45) Arterial Blood pCO2 at Patient Temp 31mmHg (35-46) Arterial Blood pO2 at Patient Temp 92mmHg (65-108) Arterial Blood HCO3 25mmol/L (21-28) Arterial Blood Base Excess 3mmol/L (-3-3) FiO2 35 Test 02/04/17 18:55 02/05/17 00:24 02/05/17 05:50 02/05/17 08:02 Glucose (Fingerstick) 114mg/dL (70-99) 127mg/dL (70-99) White Blood Count 22.7x10^3/uL (4.0-11.0) Red Blood Count 1.89x10^6/uL (4.30-5.70) Hemoglobin 6.2g/dL (13.0-17.5) Hematocrit 19.7% (39.0-53.0) Mean Corpuscular Volume 104fL (79-100) Mean Corpuscular Hemoglobin 33pg (25-35) Mean Corpuscular Hemoglobin Concent 32g/dL (31-37) Red Cell Distribution Width 22.1% (11.5-14.5) Platelet Count 43x10^3/uL (140-400) Neutrophils (%) (Auto) 81% (31-73) Lymphocytes (%) (Auto) 1% (24-48) Monocytes (%) (Auto) 18% (0-9) Eosinophils (%) (Auto) 0% (0-3) Basophils (%) (Auto) 0% (0-3) Neutrophils # (Auto) 18.4x10^3uL (1.8-7.7) Lymphocytes # (Auto) 0.3x10^3/uL (1.0-4.8) Monocytes # (Auto) 4.0x10^3/uL (0.0-1.1) Eosinophils # (Auto) 0.0x10^3/uL (0.0-0.7) Basophils # (Auto) 0.0x10^3/uL (0.0-0.2) O2 Saturation 98% (92-99) Arterial Blood pH 7.48 (7.35-7.45) Arterial Blood pCO2 at Patient Temp 39mmHg (35-46) Arterial Blood pO2 at Patient Temp 107mmHg (65-108) Arterial Blood HCO3 28mmol/L (21-28) Arterial Blood Base Excess 4mmol/L (-3-3) FiO2 35 Laboratory Tests Test 02/04/17 11:30 02/04/17 18:55 02/05/17 00:24 02/05/17 05:50 O2 Saturation 97% (92-99) Arterial Blood pH 7.54 (7.35-7.45) Arterial Blood pCO2 at Patient Temp 31mmHg (35-46) Arterial Blood pO2 at Patient Temp 92mmHg (65-108) Arterial Blood HCO3 25mmol/L (21-28) Arterial Blood Base Excess 3mmol/L (-3-3) FiO2 35 Glucose (Fingerstick) 114mg/dL (70-99) 127mg/dL (70-99) White Blood Count 22.7x10^3/uL (4.0-11.0) Red Blood Count 1.89x10^6/uL (4.30-5.70) Hemoglobin 6.2g/dL (13.0-17.5) Hematocrit 19.7% (39.0-53.0) Mean Corpuscular Volume 104fL (79-100) Mean Corpuscular Hemoglobin 33pg (25-35) Mean Corpuscular Hemoglobin Concent 32g/dL (31-37) Red Cell Distribution Width 22.1% (11.5-14.5) Platelet Count 43x10^3/uL (140-400) Neutrophils (%) (Auto) 81% (31-73) Lymphocytes (%) (Auto) 1% (24-48) Monocytes (%) (Auto) 18% (0-9) Eosinophils (%) (Auto) 0% (0-3) Basophils (%) (Auto) 0% (0-3) Neutrophils # (Auto) 18.4x10^3uL (1.8-7.7) Lymphocytes # (Auto) 0.3x10^3/uL (1.0-4.8) Monocytes # (Auto) 4.0x10^3/uL (0.0-1.1) Eosinophils # (Auto) 0.0x10^3/uL (0.0-0.7) Basophils # (Auto) 0.0x10^3/uL (0.0-0.2) Test 02/05/17 08:02 O2 Saturation 98% (92-99) Arterial Blood pH 7.48 (7.35-7.45) Arterial Blood pCO2 at Patient Temp 39mmHg (35-46) Arterial Blood pO2 at Patient Temp 107mmHg (65-108) Arterial Blood HCO3 28mmol/L (21-28) Arterial Blood Base Excess 4mmol/L (-3-3) FiO2 35 Microbiology 02/04/17 Blood Culture - Preliminary, Resulted NO GROWTH AFTER 1 DAY Medications Current Medications Vancomycin HCl 1 each 1 each PRN DAILY PRN MC SEE COMMENTS Last administered on 02/03/17t 16:14; Start 02/03/17 at 16:00; Stop 02/04/17 at 07:12; Status DC Piperacillin Sod/ Tazobactam Sod 3.375 gm/Sodium Chloride 50 ml @ 100 mls/hr Q6HRS IV Last administered on 02/05/17 05:53; Start 02/03/17 at 18:00; Stop 02/05 at 07:56; Status DC Micafungin Sodium 100 mg/Dextrose 100 ml @ 100 mls/hr Q24H IV Last administered on 02/04/17 15:57; Start 02/03/17 at 16:00 Vancomycin HCl 1.75 gm/Sodium Chloride 500 ml @ 250 mls/hr 1X ONCE IV ; Start 02/03/17 at 16:30; Stop 02/03/17 at 18:29; Status Cancel Vancomycin HCl/ Sodium Chloride (Iv Sodium Chloride 0.9% 250ml) 250 ml @ 250 mls/hr Q24H IV Last administered on 02/03/17 17:22; Start 02/03/17 at 17:00; Stop 02/04/17 at 07:12; Status DC Acetaminophen 650 mg 650 mg PRN Q6HRS PRN PEG MILD PAIN / TEMP Last administered on 02/05/17 00:50; Start 02/03/17 at 23:45 Linezolid (Zyvox Premix) 300 ml @ 300 mls/hr Q12HR IV Last administered on 02/04 20:45; Start 02/04/17 at 09:00 Ondansetron HCl (Zofran) 4 mg PRN Q6HRS PRN IV NAUSEA/VOMITING; Start 02/04/17 at 08:00 Pantoprazole Sodium (Protonix Vial) 40 mg DAILYAC IVP ; Start 02/04/17 at 09:00; Stop 02/04/17 at 11:30; Status DC Amiodarone HCl (Cordarone) 200 mg DAILY PO Last administered on 02/04/17 09:32 ; Start 02/04/17 at 09:00 Bisacodyl (Dulcolax Supp) 10 mg PRN BID PRN RC CONSTIPATION; Start 02/04/17 at 08:00 Famotidine (Pepcid) 20 mg BID PO Last administered on 02/04/17 09:30; Start 02/04/17 at 09:00 Folic Acid (Folic Acid) 1 mg DAILY PO Last administered on 02/04/17 09:31; Start 02/04/17 at 09:00 Furosemide (Lasix) 40 mg DAILY PO Last administered on 02/04/17 09:30; Start at 09:00 Acetaminophen/ Hydrocodone Bitart (Lortab 5/325) 0.5 tab PRN Q4HRS PRN PO PAIN ; Start 02/04/17 at 08:00 Albuterol/ Ipratropium (Duoneb) 3 ml QID NEB Last administered on 02/05/17 07: 45; Start 02/04/17 at 09:00 Prednisone (Prednisone) 10 mg DAILY PO Last administered on 02/04/17 09:30; Start 02/04/17 at 09:00 Thiamine HCl (Vitamin B-1) 100 mg DAILY PO Last administered on 02/04/17 09:30 ; Start 02/04/17 at 09:00 Chlorhexidine Gluconate (Peridex) 1 ml BID MM Last administered on 02/04/17 20: 47; Start 02/04/17 at 09:00 Multivitamins (Thera M Plus) 1 tab DAILY PO Last administered on 02/04/17 09:00 ; Start 02/04/17 at 09:00 Potassium Chloride (KCl Oral Soln) 20 meq DAILY PEG Last administered on 12:06; Start 02/04/17 at 10:00 Iohexol (Omnipaque 300 Mg/ml) 75 ml 1X ONCE IV Last administered on 02/04/17 13:45; Start 02/04/17 at 13:30; Stop 02/04/17 at 13:31; Status DC Info 1 each 1 each PRN DAILY PRN MC SEE COMMENTS; Start 02/04/17 at 13:15; Stop 02/06/17 at 13:14 Propofol 100 ml @ 0 mls/hr CONT PRN IV SEE I/O RECORD Last administered on 05:08; Start 02/04/17 at 15:00 Cefepime HCl 2 gm/ Sodium Chloride 100 ml @ 200 mls/hr Q8HRS IV ; Start at 08:00 Metronidazole (FLAGYL 500Mmg PREMIX) 100 ml @ 100 mls/hr Q8HRS IV ; Start at 08:00 Active Scripts Active Reported Duoneb 0.5-3(2.5) Mg/3 Ml (Albuterol/Ipratropium) 3 Ml Ampul.neb 3 Ml NEB QID Hydrocodone-Apap 5-325 (Hydrocodone Bit/Acetaminophen) 1 Each Tablet 0.5 Tab PO PRN Q4HRS PRN Amiodarone Hcl 200 Mg Tablet 1 Tab PO DAILY Aspirin 81 Mg Tab.chew 1 Tab PO DAILY Bisacodyl 10 Mg Supp.rect 10 Mg RC PRN BID PRN Chlorhexidine Flavor (Chlorhexidine) 1 Ml Liquid 1 Ml MC BID Folic Acid 1 Mg Tablet 1 Tab PO DAILY Furosemide 40 Mg Tablet 1 Tab PO DAILY Multi-Vitamin Daily (Multivitamin) 1 Each Tablet 1 Each PO DAILY16 Thiamine Hcl 100 Mg Tablet 100 Mg PO DAILY Prednisone 10 Mg Tablet 10 Mg PO DAILY Acetaminophen 325 Mg Tablet 650 Mg PO PRN Q6HRS PRN Famotidine 20 Mg Tablet 20 Mg PO BID Levofloxacin-D5w 250 Mg/50 Ml (Levofloxacin/D5w) 250 Mg/50 Ml Piggyback 250 Mg IV Q24H Piperacil-Tazobact 3.375 Gm Vl (Piperacillin Sodium/Tazobactam) 3.375 Gm Vial 3.375 Gm IV Q6HRS Vancomycin Hcl 1 Gm Vial 1 Gm IV DAILY Vitals/I & O Vital Sign - Last 24 Hours 02/04/17 02/04/17 02/04/17 02/04/17 11:00 11:30 12:00 12:00 Temp 103.0 103.0 Pulse 116 114 Resp 22 28 B/P 156/67 124/80 Pulse Ox 100 100 100 O2 Delivery Ventilator Ventilator Mechanical Ventilator Ventilator 02/04/17 02/04/17 02/04/17 02/04/17 13:00 13:00 13:30 14:00 Pulse 120 114 124 Resp 28 B/P 158/77 150/66 172/88 Pulse Ox 100 100 98 100 O2 Delivery Ventilator Ventilator Ventilator Ventilator 02/04/17 02/04/17 02/04/17 02/04/17 14:00 15:00 15:00 16:00 Pulse 122 118 106 Resp 31 23 B/P 172/86 142/82 143/82 Pulse Ox 100 100 100 O2 Delivery Ventilator Ventilator Ventilator Mechanical Ventilator 402/04/17 02/04/17 02/04/17 16:00 16:21 18:00 19:00 Temp 101.2 101.2 Pulse 122 115 118 Resp 22 15 B/P 136/78 141/59 154/82 Pulse Ox 100 98 100 95 O2 Delivery Ventilator Ventilator Ventilator Ventilator 02/04/17 02/04/17 02/04/17 02/04/17 19:26 20:00 20:00 21:00 Temp 100.2 100.2 Pulse 104 106 B/P 114/59 134/68 Pulse Ox 97 100 100 O2 Delivery Ventilator Ventilator Mechanical Ventilator Ventilator 02/04/17 02/04/17 02/04/17 02/05/17 22:00 22:25 23:00 00:00 Pulse 118 112 Resp 25 B/P 152/85 135/72 Pulse Ox 100 100 99 O2 Delivery Ventilator Ventilator Ventilator Mechanical Ventilator 02/05/17 02/05/17 02/05/17 02/05/17 00:00 00:28 01:00 02:00 Temp 101.2 101.2 Pulse 106 106 106 Resp 22 22 29 B/P 117/65 93/57 107/55 Pulse Ox 100 100 99 100 O2 Delivery Ventilator Ventilator Ventilator Ventilator 02/05/17 02/05/17 02/05/17 02/05/17 03:00 03:15 04:00 04:00 Temp 99.2 99.2 Pulse 108 100 Resp 25 22 B/P 104/64 97/55 Pulse Ox 100 100 100 O2 Delivery Ventilator Ventilator Mechanical Ventilator Ventilator 02/05/17 02/05/17 02/05/17 02/05/17 05:00 05:20 06:00 07:46 Pulse 78 79 Resp 20 17 B/P 92/56 92/56 Pulse Ox 100 100 100 100 O2 Delivery Ventilator Ventilator Ventilator Ventilator 02/05/17 09:16 Pulse Ox 100 O2 Delivery Ventilator Intake and Output 02/04/17 02/04/17 02/05/17 14:59 22:59 06:59 Intake Total 350 ml 150 ml 825 ml Output Total 455 ml 480 ml 385 ml Balance -105 ml -330 ml 440 ml Nutrition Consultation Dietary Evaluation: Recommendations by RD: Increase Calorie Intake, PPN/TPN Comments: -Rec. continue the TF's with: Fibersource HN, goal rate 60 ml/hr. Start at 25 ml/hr, increase by 25 ml/hr q8h. This provides: 1730 calories (90% estimated calorie needs) 75 grams protein (90% estimated protein needs) 1180 cc flushes plus 120 cc maintenance IVF's -Multiple wounds-rec. continue the MVT, rec. 500 mg Vitamin C/day Expected Outcomes/Goals: Tolerate the TF's at goal rate Malnutrition Findings: Reduced Chief Human Resources Officer Strength: N/A Malnutrition related to morbid: No Weight Status: Appropriate BARRY SILVEIRA MD Feb 05, 2017 10:08
[2017-02-05] MEDS ORDERED: LOPERAMIDE 2 MG/10 ML ORAL SOLUTION. PEG PRN (10:30)
--- NOTE | 2017-02-05 10:53 | PDOC ---
PULMONARY PROGRESS NOTES Subjective no change AC mode Vitals Vital Signs Date Time Temp Pulse Resp B/P Pulse Ox O2 Delivery O2 Flow Rate FiO2 02/05/17 09:16 100 Ventilator 02/05/17 06:00 79 17 92/56 02/05/17 04:00 99.2 99.2 Lungs: Other (decrease bs) Cardiovascular: S1 Abdomen: Soft Extremities: Other (1+edema) Labs Laboratory Tests Test 02/03/17 15:30 02/03/17 19:54 02/04/17 00:06 02/04/17 05:51 O2 Saturation 96% (92-99) Arterial Blood pH 7.55 (7.35-7.45) Arterial Blood pCO2 at Patient Temp 33mmHg (35-46) Arterial Blood pO2 at Patient Temp 83mmHg (65-108) Arterial Blood HCO3 28mmol/L (21-28) Arterial Blood Base Excess 5mmol/L (-3-3) FiO2 35 Lactic Acid Level 2.2mmol/L (0.4-2.0) Glucose (Fingerstick) 85mg/dL (70-99) 112mg/dL (70-99) Test 02/04/17 05:53 02/04/17 07:55 02/04/17 08:55 02/04/17 11:30 Sodium Level 144mmol/L (136-145) Potassium Level 3.7mmol/L (3.5-5.1) Chloride Level 105mmol/L (98-107) Carbon Dioxide Level 32mmol/L (21-32) Anion Gap 7 (6-14) Blood Urea Nitrogen 36mg/dL (8-26) Creatinine 0.9mg/dL (0.7-1.3) Estimated GFR (Cockcroft-Gault) 81.6 BUN/Creatinine Ratio 40 (6-20) Glucose Level 122mg/dL (70-99) Calcium Level 7.9mg/dL (8.5-10.1) Magnesium Level 2.6mg/dL (1.8-2.4) Total Bilirubin 0.9mg/dL (0.2-1.0) Aspartate Amino Transf (AST/SGOT) 37U/L (15-37) Alanine Aminotransferase (ALT/SGPT) 40U/L (16-63) Alkaline Phosphatase 155U/L (46-116) Total Protein 5.2g/dL (6.4-8.2) Albumin 2.1g/dL (3.4-5.0) Albumin/Globulin Ratio 0.7 (1.0-1.7) White Blood Count 22.7x10^3/uL (4.0-11.0) Red Blood Count 2.34x10^6/uL (4.30-5.70) Hemoglobin 7.7g/dL (13.0-17.5) Hematocrit 24.0% (39.0-53.0) Mean Corpuscular Volume 103fL (79-100) Mean Corpuscular Hemoglobin 33pg (25-35) Mean Corpuscular Hemoglobin Concent 32g/dL (31-37) Red Cell Distribution Width 22.0% (11.5-14.5) Platelet Count 56x10^3/uL (140-400) Neutrophils (%) (Auto) 82% (31-73) Lymphocytes (%) (Auto) 1% (24-48) Monocytes (%) (Auto) 17% (0-9) Eosinophils (%) (Auto) 0% (0-3) Basophils (%) (Auto) 0% (0-3) Neutrophils # (Auto) 18.5x10^3uL (1.8-7.7) Lymphocytes # (Auto) 0.3x10^3/uL (1.0-4.8) Monocytes # (Auto) 3.9x10^3/uL (0.0-1.1) Eosinophils # (Auto) 0.0x10^3/uL (0.0-0.7) Basophils # (Auto) 0.0x10^3/uL (0.0-0.2) Procalcitonin 0.23ng/mL (0.00-0.10) Urine Collection Type Void Urine Color Yellow Urine Clarity Clear Urine pH 5.0 Urine Specific [place] 1.025 Urine Protein 100mg/dL (NEG-TRACE) Urine Glucose (UA) Negativemg/dL (NEG) Urine Ketones (Stick) Negativemg/dL (NEG) Urine Blood Small (NEG) Urine Nitrite Negative (NEG) Urine Bilirubin Negative (NEG) Urine Urobilinogen Dipstick 0.2mg/dL (0.2 mg/dL) Urine Leukocyte Esterase Negative (NEG) Urine RBC 20-40/HPF (0-2) Urine WBC 0/HPF (0-4) Urine Squamous Epithelial Cells None/LPF Urine Bacteria 0/HPF (0-FEW) Urine Mucus Slight/LPF O2 Saturation 97% (92-99) Arterial Blood pH 7.54 (7.35-7.45) Arterial Blood pCO2 at Patient Temp 31mmHg (35-46) Arterial Blood pO2 at Patient Temp 92mmHg (65-108) Arterial Blood HCO3 25mmol/L (21-28) Arterial Blood Base Excess 3mmol/L (-3-3) FiO2 35 Test 02/04/17 18:55 02/05/17 00:24 02/05/17 05:50 02/05/17 08:02 Glucose (Fingerstick) 114mg/dL (70-99) 127mg/dL (70-99) White Blood Count 22.7x10^3/uL (4.0-11.0) Red Blood Count 1.89x10^6/uL (4.30-5.70) Hemoglobin 6.2g/dL (13.0-17.5) Hematocrit 19.7% (39.0-53.0) Mean Corpuscular Volume 104fL (79-100) Mean Corpuscular Hemoglobin 33pg (25-35) Mean Corpuscular Hemoglobin Concent 32g/dL (31-37) Red Cell Distribution Width 22.1% (11.5-14.5) Platelet Count 43x10^3/uL (140-400) Neutrophils (%) (Auto) 81% (31-73) Lymphocytes (%) (Auto) 1% (24-48) Monocytes (%) (Auto) 18% (0-9) Eosinophils (%) (Auto) 0% (0-3) Basophils (%) (Auto) 0% (0-3) Neutrophils # (Auto) 18.4x10^3uL (1.8-7.7) Lymphocytes # (Auto) 0.3x10^3/uL (1.0-4.8) Monocytes # (Auto) 4.0x10^3/uL (0.0-1.1) Eosinophils # (Auto) 0.0x10^3/uL (0.0-0.7) Basophils # (Auto) 0.0x10^3/uL (0.0-0.2) O2 Saturation 98% (92-99) Arterial Blood pH 7.48 (7.35-7.45) Arterial Blood pCO2 at Patient Temp 39mmHg (35-46) Arterial Blood pO2 at Patient Temp 107mmHg (65-108) Arterial Blood HCO3 28mmol/L (21-28) Arterial Blood Base Excess 4mmol/L (-3-3) FiO2 35 Laboratory Tests Test 02/04/17 11:30 02/04/17 18:55 02/05/17 00:24 02/05/17 05:50 O2 Saturation 97% (92-99) Arterial Blood pH 7.54 (7.35-7.45) Arterial Blood pCO2 at Patient Temp 31mmHg (35-46) Arterial Blood pO2 at Patient Temp 92mmHg (65-108) Arterial Blood HCO3 25mmol/L (21-28) Arterial Blood Base Excess 3mmol/L (-3-3) FiO2 35 Glucose (Fingerstick) 114mg/dL (70-99) 127mg/dL (70-99) White Blood Count 22.7x10^3/uL (4.0-11.0) Red Blood Count 1.89x10^6/uL (4.30-5.70) Hemoglobin 6.2g/dL (13.0-17.5) Hematocrit 19.7% (39.0-53.0) Mean Corpuscular Volume 104fL (79-100) Mean Corpuscular Hemoglobin 33pg (25-35) Mean Corpuscular Hemoglobin Concent 32g/dL (31-37) Red Cell Distribution Width 22.1% (11.5-14.5) Platelet Count 43x10^3/uL (140-400) Neutrophils (%) (Auto) 81% (31-73) Lymphocytes (%) (Auto) 1% (24-48) Monocytes (%) (Auto) 18% (0-9) Eosinophils (%) (Auto) 0% (0-3) Basophils (%) (Auto) 0% (0-3) Neutrophils # (Auto) 18.4x10^3uL (1.8-7.7) Lymphocytes # (Auto) 0.3x10^3/uL (1.0-4.8) Monocytes # (Auto) 4.0x10^3/uL (0.0-1.1) Eosinophils # (Auto) 0.0x10^3/uL (0.0-0.7) Basophils # (Auto) 0.0x10^3/uL (0.0-0.2) Test 02/05/17 08:02 O2 Saturation 98% (92-99) Arterial Blood pH 7.48 (7.35-7.45) Arterial Blood pCO2 at Patient Temp 39mmHg (35-46) Arterial Blood pO2 at Patient Temp 107mmHg (65-108) Arterial Blood HCO3 28mmol/L (21-28) Arterial Blood Base Excess 4mmol/L (-3-3) FiO2 35 Medications Active Scripts Medications Dose Route/Sig Days Date Category Duoneb 0.5-3(2.5) Mg/3 Ml (Albuterol/Ipratropium) 3 Ml Ampul.neb 3 Ml NEB QID 02/03/17 Reported Hydrocodone-Apap 5-325 (Hydrocodone Bit/Acetaminophen) 1 Each Tablet 0.5 Tab PO PRN Q4HRS PRN 02/03/17 Reported Amiodarone Hcl 200 Mg Tablet 1 Tab PO DAILY 02/03/17 Reported Aspirin 81 Mg Tab.chew 1 Tab PO DAILY 02/03/17 Reported Bisacodyl 10 Mg Supp.rect 10 Mg RC PRN BID PRN 02/03/17 Reported Chlorhexidine Flavor (Chlorhexidine) 1 Ml Liquid 1 Ml MC BID 02/03/17 Reported Folic Acid 1 Mg Tablet 1 Tab PO DAILY 02/03/17 Reported Furosemide 40 Mg Tablet 1 Tab PO DAILY 02/03/17 Reported Multi-Vitamin Daily (Multivitamin) 1 Each Tablet 1 Each PO DAILY16 02/03/17 Reported Thiamine Hcl 100 Mg Tablet 100 Mg PO DAILY 02/03/17 Reported Prednisone 10 Mg Tablet 10 Mg PO DAILY 02/03/17 Reported Acetaminophen 325 Mg Tablet 650 Mg PO PRN Q6HRS PRN 02/03/17 Reported Famotidine 20 Mg Tablet 20 Mg PO BID 02/03/17 Reported Levofloxacin-D5w 250 Mg/50 Ml (Levofloxacin/D5w) 250 Mg/50 Ml Piggyback 250 Mg IV Q24H 02/03/17 Reported Piperacil-Tazobact 3.375 Gm Vl (Piperacillin Sodium/Tazobactam) 3.375 Gm Vial 3.375 Gm IV Q6HRS 02/03/17 Reported Vancomycin Hcl 1 Gm Vial 1 Gm IV DAILY 02/03/17 Reported Impression . 1. Acute on chronic respiratory failure, multifactorial secondary to new onset sepsis./ new [facility] vs brain mets 2. History of methicillin-resistant Staph aureus pneumonia. BAL was performed on 01/17/2017, revealing methicillin resistant Staphylococcus aureus, cytology was negative for malignant cells. 3. New onset atrial fibrillation. 4. Metabolic toxic encephalopathy. 5. Cerebral arachnoid cyst, previously evaluated by Neurosurgery. No intervention was required or recommended. 6. Coronary artery disease with previous stent placement. 7. Severe protein malnutrition. 8. Alcoholism. 9. Status post tracheotomy. 10. Fever. Plan . AC mode The patient is a do not resuscitate candidate. Consult palliative care to determine goals of care We will continue current empiric antibiotics, sedate, mechanical support. follow neuro rec antibiotics NAVEEN CELESTIN MD Feb 05, 2017 10:53
--- NOTE | 2017-02-05 11:04 | PDOC ---
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 Plan Family not available, but I would vocational counselor for palliative care. I do not believe that anticonvulsants or resumption of steroids would be useful. Subjective None Objective Vital Signs Date Time Temp Pulse Resp B/P Pulse Ox O2 Delivery O2 Flow Rate FiO2 02/05/17 09:16 100 Ventilator 02/05/17 06:00 79 17 92/56 02/05/17 04:00 99.2 99.2 Intake and Output 02/05/17 07:00 Intake Total 1325 ml Output Total 1320 ml Balance 5 ml Intake Oral 0 ml IV Total 1325 ml Output Urine Total 1320 ml PHYSICAL EXAM He no longer has anisocoria. Both pupils react to light. Reflexes are 1+. Plantar responses are flexor. He does not move to command. He does not cooperate with coordination and sensory testing. Review of Relevant I have reviewed the following items yon (where applicable) has been applied. Labs Laboratory Tests Test 02/03/17 15:30 02/03/17 19:54 02/04/17 00:06 02/04/17 05:51 O2 Saturation 96% (92-99) Arterial Blood pH 7.55 (7.35-7.45) Arterial Blood pCO2 at Patient Temp 33mmHg (35-46) Arterial Blood pO2 at Patient Temp 83mmHg (65-108) Arterial Blood HCO3 28mmol/L (21-28) Arterial Blood Base Excess 5mmol/L (-3-3) FiO2 35 Lactic Acid Level 2.2mmol/L (0.4-2.0) Glucose (Fingerstick) 85mg/dL (70-99) 112mg/dL (70-99) Test 02/04/17 05:53 02/04/17 07:55 02/04/17 08:55 02/04/17 11:30 Sodium Level 144mmol/L (136-145) Potassium Level 3.7mmol/L (3.5-5.1) Chloride Level 105mmol/L (98-107) Carbon Dioxide Level 32mmol/L (21-32) Anion Gap 7 (6-14) Blood Urea Nitrogen 36mg/dL (8-26) Creatinine 0.9mg/dL (0.7-1.3) Estimated GFR (Cockcroft-Gault) 81.6 BUN/Creatinine Ratio 40 (6-20) Glucose Level 122mg/dL (70-99) Calcium Level 7.9mg/dL (8.5-10.1) Magnesium Level 2.6mg/dL (1.8-2.4) Total Bilirubin 0.9mg/dL (0.2-1.0) Aspartate Amino Transf (AST/SGOT) 37U/L (15-37) Alanine Aminotransferase (ALT/SGPT) 40U/L (16-63) Alkaline Phosphatase 155U/L (46-116) Total Protein 5.2g/dL (6.4-8.2) Albumin 2.1g/dL (3.4-5.0) Albumin/Globulin Ratio 0.7 (1.0-1.7) White Blood Count 22.7x10^3/uL (4.0-11.0) Red Blood Count 2.34x10^6/uL (4.30-5.70) Hemoglobin 7.7g/dL (13.0-17.5) Hematocrit 24.0% (39.0-53.0) Mean Corpuscular Volume 103fL (79-100) Mean Corpuscular Hemoglobin 33pg (25-35) Mean Corpuscular Hemoglobin Concent 32g/dL (31-37) Red Cell Distribution Width 22.0% (11.5-14.5) Platelet Count 56x10^3/uL (140-400) Neutrophils (%) (Auto) 82% (31-73) Lymphocytes (%) (Auto) 1% (24-48) Monocytes (%) (Auto) 17% (0-9) Eosinophils (%) (Auto) 0% (0-3) Basophils (%) (Auto) 0% (0-3) Neutrophils # (Auto) 18.5x10^3uL (1.8-7.7) Lymphocytes # (Auto) 0.3x10^3/uL (1.0-4.8) Monocytes # (Auto) 3.9x10^3/uL (0.0-1.1) Eosinophils # (Auto) 0.0x10^3/uL (0.0-0.7) Basophils # (Auto) 0.0x10^3/uL (0.0-0.2) Procalcitonin 0.23ng/mL (0.00-0.10) Urine Collection Type Void Urine Color Yellow Urine Clarity Clear Urine pH 5.0 Urine Specific [place] 1.025 Urine Protein 100mg/dL (NEG-TRACE) Urine Glucose (UA) Negativemg/dL (NEG) Urine Ketones (Stick) Negativemg/dL (NEG) Urine Blood Small (NEG) Urine Nitrite Negative (NEG) Urine Bilirubin Negative (NEG) Urine Urobilinogen Dipstick 0.2mg/dL (0.2 mg/dL) Urine Leukocyte Esterase Negative (NEG) Urine RBC 20-40/HPF (0-2) Urine WBC 0/HPF (0-4) Urine Squamous Epithelial Cells None/LPF Urine Bacteria 0/HPF (0-FEW) Urine Mucus Slight/LPF O2 Saturation 97% (92-99) Arterial Blood pH 7.54 (7.35-7.45) Arterial Blood pCO2 at Patient Temp 31mmHg (35-46) Arterial Blood pO2 at Patient Temp 92mmHg (65-108) Arterial Blood HCO3 25mmol/L (21-28) Arterial Blood Base Excess 3mmol/L (-3-3) FiO2 35 Test 02/04/17 18:55 02/05/17 00:24 02/05/17 05:50 02/05/17 08:02 Glucose (Fingerstick) 114mg/dL (70-99) 127mg/dL (70-99) White Blood Count 22.7x10^3/uL (4.0-11.0) Red Blood Count 1.89x10^6/uL (4.30-5.70) Hemoglobin 6.2g/dL (13.0-17.5) Hematocrit 19.7% (39.0-53.0) Mean Corpuscular Volume 104fL (79-100) Mean Corpuscular Hemoglobin 33pg (25-35) Mean Corpuscular Hemoglobin Concent 32g/dL (31-37) Red Cell Distribution Width 22.1% (11.5-14.5) Platelet Count 43x10^3/uL (140-400) Neutrophils (%) (Auto) 81% (31-73) Lymphocytes (%) (Auto) 1% (24-48) Monocytes (%) (Auto) 18% (0-9) Eosinophils (%) (Auto) 0% (0-3) Basophils (%) (Auto) 0% (0-3) Neutrophils # (Auto) 18.4x10^3uL (1.8-7.7) Lymphocytes # (Auto) 0.3x10^3/uL (1.0-4.8) Monocytes # (Auto) 4.0x10^3/uL (0.0-1.1) Eosinophils # (Auto) 0.0x10^3/uL (0.0-0.7) Basophils # (Auto) 0.0x10^3/uL (0.0-0.2) O2 Saturation 98% (92-99) Arterial Blood pH 7.48 (7.35-7.45) Arterial Blood pCO2 at Patient Temp 39mmHg (35-46) Arterial Blood pO2 at Patient Temp 107mmHg (65-108) Arterial Blood HCO3 28mmol/L (21-28) Arterial Blood Base Excess 4mmol/L (-3-3) FiO2 35 Laboratory Tests Test 02/04/17 11:30 02/04/17 18:55 02/05/17 00:24 02/05/17 05:50 O2 Saturation 97% (92-99) Arterial Blood pH 7.54 (7.35-7.45) Arterial Blood pCO2 at Patient Temp 31mmHg (35-46) Arterial Blood pO2 at Patient Temp 92mmHg (65-108) Arterial Blood HCO3 25mmol/L (21-28) Arterial Blood Base Excess 3mmol/L (-3-3) FiO2 35 Glucose (Fingerstick) 114mg/dL (70-99) 127mg/dL (70-99) White Blood Count 22.7x10^3/uL (4.0-11.0) Red Blood Count 1.89x10^6/uL (4.30-5.70) Hemoglobin 6.2g/dL (13.0-17.5) Hematocrit 19.7% (39.0-53.0) Mean Corpuscular Volume 104fL (79-100) Mean Corpuscular Hemoglobin 33pg (25-35) Mean Corpuscular Hemoglobin Concent 32g/dL (31-37) Red Cell Distribution Width 22.1% (11.5-14.5) Platelet Count 43x10^3/uL (140-400) Neutrophils (%) (Auto) 81% (31-73) Lymphocytes (%) (Auto) 1% (24-48) Monocytes (%) (Auto) 18% (0-9) Eosinophils (%) (Auto) 0% (0-3) Basophils (%) (Auto) 0% (0-3) Neutrophils # (Auto) 18.4x10^3uL (1.8-7.7) Lymphocytes # (Auto) 0.3x10^3/uL (1.0-4.8) Monocytes # (Auto) 4.0x10^3/uL (0.0-1.1) Eosinophils # (Auto) 0.0x10^3/uL (0.0-0.7) Basophils # (Auto) 0.0x10^3/uL (0.0-0.2) Test 02/05/17 08:02 O2 Saturation 98% (92-99) Arterial Blood pH 7.48 (7.35-7.45) Arterial Blood pCO2 at Patient Temp 39mmHg (35-46) Arterial Blood pO2 at Patient Temp 107mmHg (65-108) Arterial Blood HCO3 28mmol/L (21-28) Arterial Blood Base Excess 4mmol/L (-3-3) FiO2 35 Microbiology 02/04/17 Blood Culture - Preliminary, Resulted NO GROWTH AFTER 1 DAY Medications Current Medications Vancomycin HCl 1 each 1 each PRN DAILY PRN MC SEE COMMENTS Last administered on 02/03/17 16:14; Start 02/03/17 at 16:00; Stop 02/04/17 at 07:12; Status DC Piperacillin Sod/ Tazobactam Sod 3.375 gm/Sodium Chloride 50 ml @ 100 mls/hr Q6HRS IV Last administered on 02/05/17 05:53; Start 02/03/17 at 18:00; Stop 02/05 at 07:56; Status DC Micafungin Sodium 100 mg/Dextrose 100 ml @ 100 mls/hr Q24H IV Last administered on 02/04/17 15:57; Start 02/03/17 at 16:00 Vancomycin HCl 1.75 gm/Sodium Chloride 500 ml @ 250 mls/hr 1X ONCE IV ; Start 02/03/17 at 16:30; Stop 02/03/17 at 18:29; Status Cancel Vancomycin HCl/ Sodium Chloride (Iv Sodium Chloride 0.9% 250ml) 250 ml @ 250 mls/hr Q24H IV Last administered on 02/03/17 17:22; Start 02/03/17 at 17:00; Stop 02/04/17 at 07:12; Status DC Acetaminophen 650 mg 650 mg PRN Q6HRS PRN PEG MILD PAIN / TEMP Last administered on 02/05/17 00:50; Start 02/03/17 at 23:45 Linezolid (Zyvox Premix) 300 ml @ 300 mls/hr Q12HR IV Last administered on 02/04 20:45; Start 02/04/17 at 09:00 Ondansetron HCl (Zofran) 4 mg PRN Q6HRS PRN IV NAUSEA/VOMITING; Start 02/04/17 at 08:00 Pantoprazole Sodium (Protonix Vial) 40 mg DAILYAC IVP ; Start 02/04/17 at 09:00; Stop 02/04/17 at 11:30; Status DC Amiodarone HCl (Cordarone) 200 mg DAILY PO Last administered on 02/04/17 09:32 ; Start 02/04/17 at 09:00 Bisacodyl (Dulcolax Supp) 10 mg PRN BID PRN RC CONSTIPATION; Start 02/04/17 at 08:00 Famotidine (Pepcid) 20 mg BID PO Last administered on 02/04/17 09:30; Start 02/04/17 at 09:00 Folic Acid (Folic Acid) 1 mg DAILY PO Last administered on 02/04/17 09:31; Start 02/04/17 at 09:00 Furosemide (Lasix) 40 mg DAILY PO Last administered on 02/04/17 09:30; Start at 09:00 Acetaminophen/ Hydrocodone Bitart (Lortab 5/325) 0.5 tab PRN Q4HRS PRN PO PAIN ; Start 02/04/17 at 08:00 Albuterol/ Ipratropium (Duoneb) 3 ml QID NEB Last administered on 02/05/17 07: 45; Start 02/04/17 at 09:00 Prednisone (Prednisone) 10 mg DAILY PO Last administered on 02/04/17 09:30; Start 02/04/17 at 09:00 Thiamine HCl (Vitamin B-1) 100 mg DAILY PO Last administered on 02/04/17 09:30 ; Start 02/04/17 at 09:00 Chlorhexidine Gluconate (Peridex) 1 ml BID MM Last administered on 02/04/17 20: 47; Start 02/04/17 at 09:00 Multivitamins (Thera M Plus) 1 tab DAILY PO Last administered on 02/04/17 09:00 ; Start 02/04/17 at 09:00 Potassium Chloride (KCl Oral Soln) 20 meq DAILY PEG Last administered on 12:06; Start 02/04/17 at 10:00 Iohexol (Omnipaque 300 Mg/ml) 75 ml 1X ONCE IV Last administered on 02/04/17 13:45; Start 02/04/17 at 13:30; Stop 02/04/17 at 13:31; Status DC Info 1 each 1 each PRN DAILY PRN MC SEE COMMENTS; Start 02/04/17 at 13:15; Stop 02/06/17 at 13:14 Propofol 100 ml @ 0 mls/hr CONT PRN IV SEE I/O RECORD Last administered on 05:08; Start 02/04/17 at 15:00 Cefepime HCl 2 gm/ Sodium Chloride 100 ml @ 200 mls/hr Q8HRS IV ; Start at 08:00 Metronidazole (FLAGYL 500Mmg PREMIX) 100 ml @ 100 mls/hr Q8HRS IV ; Start at 08:00 Loperamide HCl (Imodium) 2 mg PRN Q1HR PRN PEG DIARRHEA; Start 02/05/17 at 10:30 Active Scripts Active Reported Duoneb 0.5-3(2.5) Mg/3 Ml (Albuterol/Ipratropium) 3 Ml Ampul.neb 3 Ml NEB QID Hydrocodone-Apap 5-325 (Hydrocodone Bit/Acetaminophen) 1 Each Tablet 0.5 Tab PO PRN Q4HRS PRN Amiodarone Hcl 200 Mg Tablet 1 Tab PO DAILY Aspirin 81 Mg Tab.chew 1 Tab PO DAILY Bisacodyl 10 Mg Supp.rect 10 Mg RC PRN BID PRN Chlorhexidine Flavor (Chlorhexidine) 1 Ml Liquid 1 Ml MC BID Folic Acid 1 Mg Tablet 1 Tab PO DAILY Furosemide 40 Mg Tablet 1 Tab PO DAILY Multi-Vitamin Daily (Multivitamin) 1 Each Tablet 1 Each PO DAILY16 Thiamine Hcl 100 Mg Tablet 100 Mg PO DAILY Prednisone 10 Mg Tablet 10 Mg PO DAILY Acetaminophen 325 Mg Tablet 650 Mg PO PRN Q6HRS PRN Famotidine 20 Mg Tablet 20 Mg PO BID Levofloxacin-D5w 250 Mg/50 Ml (Levofloxacin/D5w) 250 Mg/50 Ml Piggyback 250 Mg IV Q24H Piperacil-Tazobact 3.375 Gm Vl (Piperacillin Sodium/Tazobactam) 3.375 Gm Vial 3.375 Gm IV Q6HRS Vancomycin Hcl 1 Gm Vial 1 Gm IV DAILY Vitals/I & O Vital Sign - Last 24 Hours 02/04/17 02/04/17 02/04/17 02/04/17 11:30 12:00 12:00 13:00 Temp 103.0 103.0 Pulse 114 120 Resp 28 28 B/P 124/80 158/77 Pulse Ox 100 100 100 O2 Delivery Ventilator Mechanical Ventilator Ventilator Ventilator 02/04/17 02/04/17 02/04/17 02/04/17 13:00 13:30 14:00 14:00 Pulse 114 124 122 Resp 31 B/P 150/66 172/88 172/86 Pulse Ox 100 98 100 100 O2 Delivery Ventilator Ventilator Ventilator Ventilator 02/04/17 02/04/17 02/04/17 02/04/17 15:00 15:00 16:00 16:00 Pulse 118 106 122 Resp 23 22 B/P 142/82 143/82 136/78 Pulse Ox 100 100 100 O2 Delivery Ventilator Ventilator Mechanical Ventilator Ventilator 02/04/17 02/04/17 02/04/17 02/04/17 16:21 18:00 19:00 19:26 Temp 101.2 101.2 Pulse 115 118 Resp 15 B/P 141/59 154/82 Pulse Ox 98 100 95 97 O2 Delivery Ventilator Ventilator Ventilator Ventilator 02/04/17 02/04/17 02/04/17 02/04/17 20:00 20:00 21:00 22:00 Temp 100.2 100.2 Pulse 104 106 118 B/P 114/59 134/68 152/85 Pulse Ox 100 100 100 O2 Delivery Ventilator Mechanical Ventilator Ventilator Ventilator 02/04/17 02/04/17 02/05/17 02/05/17 22:25 23:00 00:00 00:00 Temp 101.2 101.2 Pulse 112 106 Resp 25 22 B/P 135/72 117/65 Pulse Ox 100 99 100 O2 Delivery Ventilator Ventilator Mechanical Ventilator Ventilator 02/05/17 02/05/17 02/05/17 02/05/17 00:28 01:00 02:00 03:00 Pulse 106 106 108 Resp 22 29 25 B/P 93/57 107/55 104/64 Pulse Ox 100 99 100 100 O2 Delivery Ventilator Ventilator Ventilator Ventilator 02/05/17 02/05/17 02/05/17 02/05/17 03:15 04:00 04:00 05:00 Temp 99.2 99.2 Pulse 100 78 Resp 22 20 B/P 97/55 92/56 Pulse Ox 100 100 100 O2 Delivery Ventilator Mechanical Ventilator Ventilator Ventilator 02/05/17 02/05/17 02/05/17 02/05/17 05:20 06:00 07:46 09:16 Pulse 79 Resp 17 B/P 92/56 Pulse Ox 100 100 100 100 O2 Delivery Ventilator Ventilator Ventilator Ventilator Intake and Output 02/04/17 02/04/17 02/05/17 15:00 23:00 07:00 Intake Total 350 ml 150 ml 825 ml Output Total 655 ml 280 ml 385 ml Balance -305 ml -130 ml [address] head: 1. 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 2. Left basal ganglia lesion with associated effacement of the left lateral ventricle. Diagnostic considerations include neoplasm, evolving hematoma, infarct or infection. 3. Severe bilateral deep white matter lucencies suggesting chronic ischemic change versus vasogenic edema. 4. Comparison with prior studies if available and/or MR scanning is suggested for further evaluation. EDWIN WALLACE MD Feb 05, 2017 11:04
--- NOTE | 2017-02-05 11:39 | PDOC ---
Subjective: Subjective: Onc f/u- Cytopenias, lung and brain masses No changes. Pt with no response to verbal/ physical stimulation. Talked with this AM. She understands overall picture with unlikely meaningful recovery. Interested in family meeting tomorrow with palliative care and likely transitioning to comfort care. Objective: Vital Signs: Vital Signs Date Time Temp Pulse Resp B/P Pulse Ox O2 Delivery O2 Flow Rate FiO2 02/05/17 09:16 100 Ventilator 02/05/17 06:00 79 17 92/56 02/05/17 04:00 99.2 99.2 Physical Exam: Heart: Other (Irregulary irregular, rate controlled today.) Extremities: Other (1+ edema diffusely) General: Other (No response to verbal/ physical stimuli) Lungs: Normal air movement, Other (on vent) Neuro: Other (No response to verbal/ physical stimuli) Labs/Imaging: Ct head/ C/A/P reviewed- arachnoid cyst (known), RLL lung density unclear etiology, multiple nodules in brain/ lung-- New since CT head 01/16/17 at [facility] Assessment/Plan A/P: 1. Multiple nodules in brain, bilateral lungs, unclear etiology- ? emboli from A fib? No clear cancer history, unlikely to be new widespread mets in brain when not seen on outside CT head 01/16/17. 2. Known 6 cm arachnoid cyst- No tx needed per outside NS. 3. RLL lung density also on outside imaging- Unclear etiology. Had been treating for pneumonia, no clear improvement. 4. Anemia, thrombocytopenia- Likely due to critical illness, sepsis. Transfusing today. 5. Resp failure s/p trach 6. Ongoing neurologic issues D/W this AM that given overall picture, while no clear cancer, overall prognosis poor with unlikely meaningful recovery. She agreed with palliative care family mtg tomorrow and likely transition to comfort care then. 30 min spent with pt, nursing, D/W pall care, and . CRUZ SINGH DO Feb 05, 2017 11:39
[2017-02-05] MEDS: MULTIVITAMIN with MINERAL TABLET. PO SCH (12:24)
[2017-02-05] MEDS: POTASSIUM CHLORIDE 20 MEQ/15 ML ORAL LIQUID. PEG SCH (12:24)
[2017-02-05] MEDS: PREDNISONE 10 MG TABLET PO SCH (12:25)
[2017-02-05] MEDS: THIAMINE 100 MG TABLET. PO SCH (12:25)
[2017-02-05] MEDS: AMIODARONE HCL 200 MG TABLET. PO SCH (12:25)
[2017-02-05] MEDS: FAMOTIDINE 20 MG TABLET. PO SCH ×2 (12:25→20:39)
[2017-02-05] MEDS: METRONIDAZOLE 500mg PREMIX 100 ML IV SCH ×3 (12:26→21:43)
[2017-02-05] MEDS: FUROSEMIDE 40 MG TABLET. PO SCH (12:27)
[2017-02-05] MEDS: FOLIC ACID 1 MG TABLET. PO SCH (12:27)
[2017-02-05] MEDS: MICAFUNGIN 100 MG in IV DEXTROSE 5% 100 ML IV SCH (15:31)
--- NOTE | 2017-02-05 17:20 | PDOC2 ---
PALLIATIVE CARE Palliative Care Note Palliative Care Consult requested by Dr. Campuzano to address plan of care Diagnosis:: Respiratory Failure--S/P tracheostomy; Multiple nodules in brain, bilateral lungs, unclear etiology- ? ; anemia; Spoke with Elisabet. Plan family meeting tomorrow at 1030. Code Status: INDERJIT ZAMBRAON Feb 05, 2017 17:20
[2017-02-05 21:06] LABS: HEMATOCRIT 26.2 % (39.0-53.0); HEMOGLOBIN 8.5 g/dL (13.0-17.5); RED BLOOD COUNT 2.65 x10^6/uL (4.30-5.70); RED CELL DISTRIBUTION WIDTH 22.5 % (11.5-14.5); WHITE BLOOD COUNT 32.1 x10^3/uL (4.0-11.0)
[2017-02-06] VITALS (24 sets, daily range): BP systolic 102–165; BP diastolic 63–92
[2017-02-06] MEDS: PROPOFOL 100 ML IV PRN (01:23)
[2017-02-06] MEDS: METRONIDAZOLE 500mg PREMIX 100 ML IV SCH ×2 (05:34→14:16)
[2017-02-06] MEDS: CEFEPIME HCL 2 GM in IV NORMAL SALINE 100ML 100 ML IV SCH ×2 (05:34→13:24)
[2017-02-06 06:53] LABS: BASO # 0.1 x10^3/uL (0.0-0.2); BASO % 0 % (0-3); EOS % 0 % (0-3); HEMATOCRIT 27.7 % (39.0-53.0); LYMPH # 0.4 x10^3/uL (1.0-4.8); LYMPH % 1 % (24-48); MEAN CORPUSCULAR HEMOGLOBIN 32 pg (25-35); MEAN CORPUSCULAR HGB CONC 32 g/dL (31-37); MEAN CORPUSCULAR VOLUME 99 fL (79-100); MONO % 11 % (0-9); NEUT % 88 % (31-73); PLATELET COUNT 70 x10^3/uL (140-400); RED BLOOD COUNT 2.81 x10^6/uL (4.30-5.70); RED CELL DISTRIBUTION WIDTH 22.3 % (11.5-14.5); WHITE BLOOD COUNT 36.9 x10^3/uL (4.0-11.0)
--- NOTE | 2017-02-06 07:26 | PDOC ---
Infectious Disease Note Subjective Subjective Not responsive ROS ROS Unobtainable Vital Sign Vital Signs Vital Signs Date Time Temp Pulse Resp B/P Pulse Ox O2 Delivery O2 Flow Rate FiO2 02/06/17 06:00 109 22 145/86 100 Ventilator 02/06/17 04:00 100.5 100.5 Physical Exam PHYSICAL EXAM GENERAL: NAD, appears comfortable HEENT: PERRL -small, NECK: Supple, no JVD, trach LUNGS: Clear HEART: S1S2, no gallop, no murmur ABD: Soft, NT, no organomegaly, no rebound. PEG. 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 SKIN: No rash IV: RUE clean Labs Lab Laboratory Tests Test 02/05/17 08:02 02/05/17 12:51 02/05/17 20:55 02/06/17 06:20 O2 Saturation 98% (92-99) Arterial Blood pH 7.48 (7.35-7.45) Arterial Blood pCO2 at Patient Temp 39mmHg (35-46) Arterial Blood pO2 at Patient Temp 107mmHg (65-108) Arterial Blood HCO3 28mmol/L (21-28) Arterial Blood Base Excess 4mmol/L (-3-3) FiO2 35 Glucose (Fingerstick) 112mg/dL (70-99) White Blood Count 32.1x10^3/uL (4.0-11.0) 36.9x10^3/uL (4.0-11.0) Red Blood Count 2.65x10^6/uL (4.30-5.70) 2.81x10^6/uL (4.30-5.70) Hemoglobin 8.5g/dL (13.0-17.5) 9.0g/dL (13.0-17.5) Hematocrit 26.2% (39.0-53.0) 27.7% (39.0-53.0) Mean Corpuscular Volume 99fL (79-100) 99fL (79-100) Mean Corpuscular Hemoglobin 32pg (25-35) 32pg (25-35) Mean Corpuscular Hemoglobin Concent 32g/dL (31-37) 32g/dL (31-37) Red Cell Distribution Width 22.5% (11.5-14.5) 22.3% (11.5-14.5) Platelet Count 61x10^3/uL (140-400) 70x10^3/uL (140-400) Neutrophils (%) (Auto) 88% (31-73) Lymphocytes (%) (Auto) 1% (24-48) Monocytes (%) (Auto) 11% (0-9) Eosinophils (%) (Auto) 0% (0-3) Basophils (%) (Auto) 0% (0-3) Neutrophils # (Auto) 32.2x10^3uL (1.8-7.7) Lymphocytes # (Auto) 0.4x10^3/uL (1.0-4.8) Monocytes # (Auto) 4.1x10^3/uL (0.0-1.1) Eosinophils # (Auto) 0.0x10^3/uL (0.0-0.7) Basophils # (Auto) 0.1x10^3/uL (0.0-0.2) Objective Assessment Fever - despite multiple abx changes/antifungal. ? Central vs ID Acute Anemia Leukocytosis - increasing ? Post PRBCs plus reactive Encephalopathy Tetracycline allergy Afib H/o MRSA pneumonia -CT now with pulm nodules/Right apex consolidation H/o [place] H/o AFB sputum sent to [facility] 01/29. Grew too rapidly for TB. 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
[2017-02-06] MEDS: IPRATRPIUM/ALBUTEROL 0.5/2.5MG 3 ML NEBU. NEB SCH ×4 (07:47→20:16)
--- NOTE | 2017-02-06 08:33 | PDOC ---
PROGRESS NOTES Chief Complaint Chief Complaint 1. Lung CA stage 4 with mets 2. Dysphagia and chronic encephalopathy with indwelling trach and PEG 3. 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 S/p sepsis 5. SIRS, possibly new sepsis again 6. AOCD 7. LEukocytosis 8. Thrombocytopenia 9. DNR 10. Precipitous drop in hgb (02/05/17) History of Present Illness History of Present Illness NOn verbal I am unable to appreciate pupillary rxn to light [place] in Trach and pEG FAm mtg later 10:30 AM Dw palliative Family seems realistic and they might go comfort care PLAN: will initiate hospice bundle DNR Vitals Vitals Vital Signs Date Time Temp Pulse Resp B/P Pulse Ox O2 Delivery O2 Flow Rate FiO2 02/06/17 07:47 100 Ventilator 02/06/17 07:00 118 19 152/84 02/06/17 04:00 100.5 100.5 Physical Exam General: Other (No response to verbal/ physical stimuli) Heart: Other (Irregulary irregular, rate controlled today.) Lungs: Other (decrease bs) Abdomen: Normal bowel sounds, Soft, Other (pos pEG) Extremities: Other (1+ edema diffusely) Skin: No rashes Labs LABS Laboratory Tests Test 02/05/17 12:51 02/05/17 20:55 02/06/17 06:20 Glucose (Fingerstick) 112mg/dL (70-99) White Blood Count 32.1x10^3/uL (4.0-11.0) 36.9x10^3/uL (4.0-11.0) Red Blood Count 2.65x10^6/uL (4.30-5.70) 2.81x10^6/uL (4.30-5.70) Hemoglobin 8.5g/dL (13.0-17.5) 9.0g/dL (13.0-17.5) Hematocrit 26.2% (39.0-53.0) 27.7% (39.0-53.0) Mean Corpuscular Volume 99fL (79-100) 99fL (79-100) Mean Corpuscular Hemoglobin 32pg (25-35) 32pg (25-35) Mean Corpuscular Hemoglobin Concent 32g/dL (31-37) 32g/dL (31-37) Red Cell Distribution Width 22.5% (11.5-14.5) 22.3% (11.5-14.5) Platelet Count 61x10^3/uL (140-400) 70x10^3/uL (140-400) Neutrophils (%) (Auto) 88% (31-73) Lymphocytes (%) (Auto) 1% (24-48) Monocytes (%) (Auto) 11% (0-9) Eosinophils (%) (Auto) 0% (0-3) Basophils (%) (Auto) 0% (0-3) Neutrophils # (Auto) 32.2x10^3uL (1.8-7.7) Lymphocytes # (Auto) 0.4x10^3/uL (1.0-4.8) Monocytes # (Auto) 4.1x10^3/uL (0.0-1.1) Eosinophils # (Auto) 0.0x10^3/uL (0.0-0.7) Basophils # (Auto) 0.1x10^3/uL (0.0-0.2) Review of Systems Review of Systems non verbal Assessment and Plan Assessmemt and Plan Problems Medical Problems: (1) Acute respiratory failure Status: Acute Problems: Comment Review of Relevant I have reviewed the following items yon (where applicable) has been applied. Labs Laboratory Tests Test 02/04/17 08:55 02/04/17 11:30 02/04/17 18:55 02/05/17 00:24 Urine Collection Type Void Urine Color Yellow Urine Clarity Clear Urine pH 5.0 Urine Specific [place] 1.025 Urine Protein 100mg/dL (NEG-TRACE) Urine Glucose (UA) Negativemg/dL (NEG) Urine Ketones (Stick) Negativemg/dL (NEG) Urine Blood Small (NEG) Urine Nitrite Negative (NEG) Urine Bilirubin Negative (NEG) Urine Urobilinogen Dipstick 0.2mg/dL (0.2 mg/dL) Urine Leukocyte Esterase Negative (NEG) Urine RBC 20-40/HPF (0-2) Urine WBC 0/HPF (0-4) Urine Squamous Epithelial Cells None/LPF Urine Bacteria 0/HPF (0-FEW) Urine Mucus Slight/LPF O2 Saturation 97% (92-99) Arterial Blood pH 7.54 (7.35-7.45) Arterial Blood pCO2 at Patient Temp 31mmHg (35-46) Arterial Blood pO2 at Patient Temp 92mmHg (65-108) Arterial Blood HCO3 25mmol/L (21-28) Arterial Blood Base Excess 3mmol/L (-3-3) FiO2 35 Glucose (Fingerstick) 114mg/dL (70-99) 127mg/dL (70-99) Test 02/05/17 05:50 02/05/17 08:02 02/05/17 12:51 02/05/17 20:55 White Blood Count 22.7x10^3/uL (4.0-11.0) 32.1x10^3/uL (4.0-11.0) Red Blood Count 1.89x10^6/uL (4.30-5.70) 2.65x10^6/uL (4.30-5.70) Hemoglobin 6.2g/dL (13.0-17.5) 8.5g/dL (13.0-17.5) Hematocrit 19.7% (39.0-53.0) 26.2% (39.0-53.0) Mean Corpuscular Volume 104fL (79-100) 99fL (79-100) Mean Corpuscular Hemoglobin 33pg (25-35) 32pg (25-35) Mean Corpuscular Hemoglobin Concent 32g/dL (31-37) 32g/dL (31-37) Red Cell Distribution Width 22.1% (11.5-14.5) 22.5% (11.5-14.5) Platelet Count 43x10^3/uL (140-400) 61x10^3/uL (140-400) Neutrophils (%) (Auto) 81% (31-73) Lymphocytes (%) (Auto) 1% (24-48) Monocytes (%) (Auto) 18% (0-9) Eosinophils (%) (Auto) 0% (0-3) Basophils (%) (Auto) 0% (0-3) Neutrophils # (Auto) 18.4x10^3uL (1.8-7.7) Lymphocytes # (Auto) 0.3x10^3/uL (1.0-4.8) Monocytes # (Auto) 4.0x10^3/uL (0.0-1.1) Eosinophils # (Auto) 0.0x10^3/uL (0.0-0.7) Basophils # (Auto) 0.0x10^3/uL (0.0-0.2) O2 Saturation 98% (92-99) Arterial Blood pH 7.48 (7.35-7.45) Arterial Blood pCO2 at Patient Temp 39mmHg (35-46) Arterial Blood pO2 at Patient Temp 107mmHg (65-108) Arterial Blood HCO3 28mmol/L (21-28) Arterial Blood Base Excess 4mmol/L (-3-3) FiO2 35 Glucose (Fingerstick) 112mg/dL (70-99) Test 02/06/17 06:20 White Blood Count 36.9x10^3/uL (4.0-11.0) Red Blood Count 2.81x10^6/uL (4.30-5.70) Hemoglobin 9.0g/dL (13.0-17.5) Hematocrit 27.7% (39.0-53.0) Mean Corpuscular Volume 99fL (79-100) Mean Corpuscular Hemoglobin 32pg (25-35) Mean Corpuscular Hemoglobin Concent 32g/dL (31-37) Red Cell Distribution Width 22.3% (11.5-14.5) Platelet Count 70x10^3/uL (140-400) Neutrophils (%) (Auto) 88% (31-73) Lymphocytes (%) (Auto) 1% (24-48) Monocytes (%) (Auto) 11% (0-9) Eosinophils (%) (Auto) 0% (0-3) Basophils (%) (Auto) 0% (0-3) Neutrophils # (Auto) 32.2x10^3uL (1.8-7.7) Lymphocytes # (Auto) 0.4x10^3/uL (1.0-4.8) Monocytes # (Auto) 4.1x10^3/uL (0.0-1.1) Eosinophils # (Auto) 0.0x10^3/uL (0.0-0.7) Basophils # (Auto) 0.1x10^3/uL (0.0-0.2) Laboratory Tests Test 02/05/17 12:51 02/05/17 20:55 02/06/17 06:20 Glucose (Fingerstick) 112mg/dL (70-99) White Blood Count 32.1x10^3/uL (4.0-11.0) 36.9x10^3/uL (4.0-11.0) Red Blood Count 2.65x10^6/uL (4.30-5.70) 2.81x10^6/uL (4.30-5.70) Hemoglobin 8.5g/dL (13.0-17.5) 9.0g/dL (13.0-17.5) Hematocrit 26.2% (39.0-53.0) 27.7% (39.0-53.0) Mean Corpuscular Volume 99fL (79-100) 99fL (79-100) Mean Corpuscular Hemoglobin 32pg (25-35) 32pg (25-35) Mean Corpuscular Hemoglobin Concent 32g/dL (31-37) 32g/dL (31-37) Red Cell Distribution Width 22.5% (11.5-14.5) 22.3% (11.5-14.5) Platelet Count 61x10^3/uL (140-400) 70x10^3/uL (140-400) Neutrophils (%) (Auto) 88% (31-73) Lymphocytes (%) (Auto) 1% (24-48) Monocytes (%) (Auto) 11% (0-9) Eosinophils (%) (Auto) 0% (0-3) Basophils (%) (Auto) 0% (0-3) Neutrophils # (Auto) 32.2x10^3uL (1.8-7.7) Lymphocytes # (Auto) 0.4x10^3/uL (1.0-4.8) Monocytes # (Auto) 4.1x10^3/uL (0.0-1.1) Eosinophils # (Auto) 0.0x10^3/uL (0.0-0.7) Basophils # (Auto) 0.1x10^3/uL (0.0-0.2) Microbiology 02/04/17 Blood Culture - Preliminary, Resulted NO GROWTH AFTER 2 DAYS Medications Current Medications Vancomycin HCl 1 each 1 each PRN DAILY PRN MC SEE COMMENTS Last administered on 02/03/17 16:14; Start 02/03/17 at 16:00; Stop 02/04/17 at 07:12; Status DC Piperacillin Sod/ Tazobactam Sod 3.375 gm/Sodium Chloride 50 ml @ 100 mls/hr Q6HRS IV Last administered on 02/05/17 05:53; Start 02/03/17 at 18:00; Stop 02/05 at 07:56; Status DC Micafungin Sodium 100 mg/Dextrose 100 ml @ 100 mls/hr Q24H IV Last administered on 02/05/17 15:31; Start 02/03/17 at 16:00 Vancomycin HCl 1.75 gm/Sodium Chloride 500 ml @ 250 mls/hr 1X ONCE IV ; Start 02/03/17 at 16:30; Stop 02/03/17 at 18:29; Status Cancel Vancomycin HCl/ Sodium Chloride (Iv Sodium Chloride 0.9% 250ml) 250 ml @ 250 mls/hr Q24H IV Last administered on 02/03/17 17:22; Start 02/03/17 at 17:00; Stop 02/04/17 at 07:12; Status DC Acetaminophen 650 mg 650 mg PRN Q6HRS PRN PEG MILD PAIN / TEMP Last administered on 02/05/17 00:50; Start 02/03/17 at 23:45 Linezolid (Zyvox Premix) 300 ml @ 300 mls/hr Q12HR IV Last administered on 02/05 20:36; Start 02/04/17 at 09:00 Ondansetron HCl (Zofran) 4 mg PRN Q6HRS PRN IV NAUSEA/VOMITING; Start 02/04/17 at 08:00 Pantoprazole Sodium (Protonix Vial) 40 mg DAILYAC IVP ; Start 02/04/17 at 09:00; Stop 02/04/17 at 11:30; Status DC Amiodarone HCl (Cordarone) 200 mg DAILY PO Last administered on 02/05/17 12:25 ; Start 02/04/17 at 09:00 Bisacodyl (Dulcolax Supp) 10 mg PRN BID PRN RC CONSTIPATION; Start 02/04/17 at 08:00 Famotidine (Pepcid) 20 mg BID PO Last administered on 02/05/17 12:25; Start 02/04/17 at 09:00 Folic Acid (Folic Acid) 1 mg DAILY PO Last administered on 02/05/17 12:27; Start 02/04/17 at 09:00 Furosemide (Lasix) 40 mg DAILY PO Last administered on 02/05/17 12:27; Start at 09:00 Acetaminophen/ Hydrocodone Bitart (Lortab 5/325) 0.5 tab PRN Q4HRS PRN PO PAIN ; Start 02/04/17 at 08:00 Albuterol/ Ipratropium (Duoneb) 3 ml QID NEB Last administered on 02/06/17 07: 47; Start 02/04/17 at 09:00 Prednisone (Prednisone) 10 mg DAILY PO Last administered on 02/05/17 12:25; Start 02/04/17 at 09:00 Thiamine HCl (Vitamin B-1) 100 mg DAILY PO Last administered on 02/05/17 12:25 ; Start 02/04/17 at 09:00 Chlorhexidine Gluconate (Peridex) 1 ml BID MM Last administered on 02/05/17 20: 39; Start 02/04/17 at 09:00 Multivitamins (Thera M Plus) 1 tab DAILY PO Last administered on 02/05/17 12:24 ; Start 02/04/17 at 09:00 Potassium Chloride (KCl Oral Soln) 20 meq DAILY PEG Last administered on 12:24; Start 02/04/17 at 10:00 Iohexol (Omnipaque 300 Mg/ml) 75 ml 1X ONCE IV Last administered on 02/04/17 13:45; Start 02/04/17 at 13:30; Stop 02/04/17 at 13:31; Status DC Info 1 each 1 each PRN DAILY PRN MC SEE COMMENTS; Start 02/04/17 at 13:15; Stop 02/06/17 at 13:14 Propofol 100 ml @ 0 mls/hr CONT PRN IV SEE I/O RECORD Last administered on 01:23; Start 02/04/17 at 15:00 Cefepime HCl 2 gm/ Sodium Chloride 100 ml @ 200 mls/hr Q8HRS IV Last administered on 02/06/17 05:34; Start 02/05/17 at 08:00 Metronidazole (FLAGYL 500Mmg PREMIX) 100 ml @ 100 mls/hr Q8HRS IV Last administered on 02/06/17 05:34; Start 02/05/17 at 08:00 Loperamide HCl (Imodium) 2 mg PRN Q1HR PRN PEG DIARRHEA; Start 02/05/17 at 10:30 Active Scripts Active Reported Duoneb 0.5-3(2.5) Mg/3 Ml (Albuterol/Ipratropium) 3 Ml Ampul.neb 3 Ml NEB QID Hydrocodone-Apap 5-325 (Hydrocodone Bit/Acetaminophen) 1 Each Tablet 0.5 Tab PO PRN Q4HRS PRN Amiodarone Hcl 200 Mg Tablet 1 Tab PO DAILY Aspirin 81 Mg Tab.chew 1 Tab PO DAILY Bisacodyl 10 Mg Supp.rect 10 Mg RC PRN BID PRN Chlorhexidine Flavor (Chlorhexidine) 1 Ml Liquid 1 Ml MC BID Folic Acid 1 Mg Tablet 1 Tab PO DAILY Furosemide 40 Mg Tablet 1 Tab PO DAILY Multi-Vitamin Daily (Multivitamin) 1 Each Tablet 1 Each PO DAILY16 Thiamine Hcl 100 Mg Tablet 100 Mg PO DAILY Prednisone 10 Mg Tablet 10 Mg PO DAILY Acetaminophen 325 Mg Tablet 650 Mg PO PRN Q6HRS PRN Famotidine 20 Mg Tablet 20 Mg PO BID Levofloxacin-D5w 250 Mg/50 Ml (Levofloxacin/D5w) 250 Mg/50 Ml Piggyback 250 Mg IV Q24H Piperacil-Tazobact 3.375 Gm Vl (Piperacillin Sodium/Tazobactam) 3.375 Gm Vial 3.375 Gm IV Q6HRS Vancomycin Hcl 1 Gm Vial 1 Gm IV DAILY Vitals/I & O Vital Sign - Last 24 Hours 02/05/17 02/05/17 02/05/17 02/05/17 09:00 09:16 10:00 11:32 Pulse 92 96 B/P 93/71 111/80 Pulse Ox 98 100 94 100 O2 Delivery Ventilator Ventilator Ventilator Ventilator 02/05/17 02/05/17 02/05/17 02/05/17 12:00 12:00 12:25 12:59 Temp 99.0 99.0 Pulse 96 101 B/P 117/71 Pulse Ox 99 O2 Delivery Mechanical Ventilator Ventilator Ventilator 02/05/17 02/05/17 02/05/174/17 13:00 14:00 15:00 15:39 Pulse 92 94 94 B/P 129/94 132/76 119/72 Pulse Ox 95 94 100 99 O2 Delivery Ventilator Ventilator Ventilator Ventilator 02/05/17 02/05/17 02/05/17 02/05/17 16:00 16:00 17:00 17:02 Temp 99.3 99.3 Pulse 100 113 B/P 117/65 135/82 Pulse Ox 100 100 100 O2 Delivery Ventilator Mechanical Ventilator Ventilator Ventilator 02/05/17 02/05/17 02/05/17 02/05/17 18:00 18:10 18:25 18:25 Temp 99.3 99.3 Pulse 111 109 118 Resp 26 22 26 26 B/P 101/62 141/78 101/79 101/79 Pulse Ox 100 O2 Delivery Ventilator 02/05/17 02/05/17 02/05/17 02/05/17 19:00 19:50 20:00 20:00 Temp 100.0 100.0 Pulse 124 128 Resp 28 26 B/P 133/79 156/80 Pulse Ox 100 99 100 O2 Delivery Ventilator Ventilator Mechanical Ventilator Ventilator 02/05/17 02/05/17 02/05/17 02/05/17 21:00 22:00 23:00 23:08 Pulse 112 113 112 Resp 26 47 48 B/P 119/90 159/92 151/93 Pulse Ox 100 100 100 100 O2 Delivery Ventilator Ventilator Ventilator Ventilator 02/06/17 02/06/17 02/06/17 02/06/17 00:00 00:00 01:00 01:56 Temp 100.3 100.3 Pulse 108 108 Resp 30 24 B/P 133/74 165/92 Pulse Ox 100 100 100 O2 Delivery Mechanical Ventilator Ventilator Ventilator Ventilator 02/06/17 02/06/17 02/06/17 02/06/17 02:00 03:01 03:37 04:00 Temp 100.5 100.5 Pulse 102 107 112 Resp 35 27 36 B/P 125/63 119/74 119/70 Pulse Ox 100 100 100 100 O2 Delivery Ventilator Ventilator Ventilator Ventilator 02/06/17 02/06/17 02/06/17 02/06/17 04:00 05:00 05:44 06:00 Pulse 105 109 Resp 18 22 B/P 123/65 145/86 Pulse Ox 100 100 100 O2 Delivery Mechanical Ventilator Ventilator Ventilator Ventilator 02/06/17 02/06/17 07:00 07:47 Pulse 118 Resp 19 B/P 152/84 Pulse Ox 100 100 O2 Delivery Ventilator Ventilator Intake and Output 02/05/17 02/05/17 02/06/17 15:00 23:00 07:00 Intake Total 0 ml 938 ml 3938 ml Output Total 550 ml 286 ml 647 ml Balance -550 ml 652 ml 3291 ml Nutrition Consultation Dietary Evaluation: Recommendations by RD: Increase Calorie Intake, PPN/TPN Comments: -Rec. continue the TF's with: Fibersource HN, goal rate 60 ml/hr. Start at 25 ml/hr, increase by 25 ml/hr q8h. This provides: 1730 calories (90% estimated calorie needs) 75 grams protein (90% estimated protein needs) 1180 cc flushes plus 120 cc maintenance IVF's -Multiple wounds-rec. continue the MVT, rec. 500 mg Vitamin C/day Expected Outcomes/Goals: Tolerate the TF's at goal rate Malnutrition Findings: Reduced Hotel Or Motel Receptionist Strength: N/A Malnutrition related to morbid: No Weight Status: Appropriate BARRY SILVEIRA MD Feb 06, 2017 08:33
[2017-02-06] MEDS ORDERED: LORAZEPAM 0.5 MG TABLET. PO PRN (08:45)
[2017-02-06] MEDS ORDERED: MORPHINE SULFATE 10 MG/5 ML ORAL SOLUTION. PO PRN (08:45)
[2017-02-06 08:50] LABS: HCO3 ABG 28 mmol/L (21-28); PCO2 ABG 39 mmHg (35-46); PH ABG 7.46 (7.35-7.45); PO2 ABG 119 mmHg (65-108); SAT O2 ABG 98 % (92-99)
[2017-02-06 08:52] LABS: FIO2 ABG 35
[2017-02-06] MEDS: PREDNISONE 10 MG TABLET PO SCH (08:54)
[2017-02-06] MEDS: FAMOTIDINE 20 MG TABLET. PO SCH ×2 (08:54→21:00)
[2017-02-06] MEDS: FOLIC ACID 1 MG TABLET. PO SCH (08:54)
[2017-02-06] MEDS: CHLORHEXIDINE 0.12% 15 ML MOUTHWASH. MM SCH ×2 (08:54→21:00)
[2017-02-06] MEDS: FUROSEMIDE 40 MG TABLET. PO SCH (08:55)
[2017-02-06] MEDS: THIAMINE 100 MG TABLET. PO SCH (08:55)
[2017-02-06] MEDS: MULTIVITAMIN with MINERAL TABLET. PO SCH (08:55)
[2017-02-06] MEDS: POTASSIUM CHLORIDE 20 MEQ/15 ML ORAL LIQUID. PEG SCH (08:55)
[2017-02-06] MEDS: AMIODARONE HCL 200 MG TABLET. PO SCH (08:55)
[2017-02-06] MEDS ORDERED: SCOPOLAMINE 1.5MG PATCH. TD SCH (09:00)
[2017-02-06 09:11] LABS: ALBUMIN 1.7 g/dL (3.4-5.0); ALBUMIN/GLOBULIN RATIO 0.5 (1.0-1.7); CALCIUM 8.3 mg/dL (8.5-10.1); CREATININE 0.8 mg/dL (0.7-1.3); GFR 93.5; POTASSIUM 3.4 mmol/L (3.5-5.1); TOTAL BILIRUBIN 0.8 mg/dL (0.2-1.0); TOTAL PROTEIN 5.3 g/dL (6.4-8.2)
--- NOTE | 2017-02-06 10:14 | PDOC ---
Subjective: Subjective: Onc f/u- Unresponsive. No family present this AM. Family mtg today. Per yesterday, leaning towards comfort measures. Objective: Vital Signs: Vital Signs Date Time Temp Pulse Resp B/P Pulse Ox O2 Delivery O2 Flow Rate FiO2 02/06/17 09:00 100 Ventilator 02/06/17 08:55 117 117/71 02/06/17 07:00 19 02/06/17 04:00 100.5 100.5 Physical Exam: Heart: Other (irregualrly irregular, tachycardic) Extremities: Other (2+ edema all extremities) General: Other (unresponsive) Lungs: Normal air movement Psych/Mental Status: Other (unresponsive) Assessment/Plan A/P: 1. Multiple nodules in brain, bilateral lungs, unclear etiology- ? emboli from A fib? No clear cancer history, unlikely to be new widespread mets in brain when not seen on outside CT head 01/16/17. 2. Known 6 cm arachnoid cyst- No tx needed per outside NS. 3. RLL lung density also on outside imaging- Unclear etiology. Had been treating for pneumonia, no clear improvement. Could be malignancy. No w/u recommended given current status. 4. Anemia, thrombocytopenia- Likely due to critical illness, sepsis. 5. Resp failure s/p trach 6. Ongoing neurologic issues Recommend hospice, d/w yesterday. Family mtg today. Will sign off; please call with questions. CRUZ SINGH DO Feb 06, 2017 10:14
--- NOTE | 2017-02-06 11:01 | PDOC ---
PULMONARY PROGRESS NOTES Subjective no change AC mode Vitals Vital Signs Date Time Temp Pulse Resp B/P Pulse Ox O2 Delivery O2 Flow Rate FiO2 02/06/17 10:00 125 25 147/80 100 Ventilator 02/06/17 08:00 99.1 99.1 Lungs: Other (decrease bs) Cardiovascular: S1 Abdomen: Soft Extremities: Other (1+edema) Skin: Warm Labs Laboratory Tests Test 02/04/17 11:30 02/04/17 18:55 02/05/17 00:24 02/05/17 05:50 O2 Saturation 97% (92-99) Arterial Blood pH 7.54 (7.35-7.45) Arterial Blood pCO2 at Patient Temp 31mmHg (35-46) Arterial Blood pO2 at Patient Temp 92mmHg (65-108) Arterial Blood HCO3 25mmol/L (21-28) Arterial Blood Base Excess 3mmol/L (-3-3) FiO2 35 Glucose (Fingerstick) 114mg/dL (70-99) 127mg/dL (70-99) White Blood Count 22.7x10^3/uL (4.0-11.0) Red Blood Count 1.89x10^6/uL (4.30-5.70) Hemoglobin 6.2g/dL (13.0-17.5) Hematocrit 19.7% (39.0-53.0) Mean Corpuscular Volume 104fL (79-100) Mean Corpuscular Hemoglobin 33pg (25-35) Mean Corpuscular Hemoglobin Concent 32g/dL (31-37) Red Cell Distribution Width 22.1% (11.5-14.5) Platelet Count 43x10^3/uL (140-400) Neutrophils (%) (Auto) 81% (31-73) Lymphocytes (%) (Auto) 1% (24-48) Monocytes (%) (Auto) 18% (0-9) Eosinophils (%) (Auto) 0% (0-3) Basophils (%) (Auto) 0% (0-3) Neutrophils # (Auto) 18.4x10^3uL (1.8-7.7) Lymphocytes # (Auto) 0.3x10^3/uL (1.0-4.8) Monocytes # (Auto) 4.0x10^3/uL (0.0-1.1) Eosinophils # (Auto) 0.0x10^3/uL (0.0-0.7) Basophils # (Auto) 0.0x10^3/uL (0.0-0.2) Test 02/05/17 08:02 02/05/17 12:51 02/05/17 20:55 02/06/17 06:20 O2 Saturation 98% (92-99) Arterial Blood pH 7.48 (7.35-7.45) Arterial Blood pCO2 at Patient Temp 39mmHg (35-46) Arterial Blood pO2 at Patient Temp 107mmHg (65-108) Arterial Blood HCO3 28mmol/L (21-28) Arterial Blood Base Excess 4mmol/L (-3-3) FiO2 35 Glucose (Fingerstick) 112mg/dL (70-99) White Blood Count 32.1x10^3/uL (4.0-11.0) 36.9x10^3/uL (4.0-11.0) Red Blood Count 2.65x10^6/uL (4.30-5.70) 2.81x10^6/uL (4.30-5.70) Hemoglobin 8.5g/dL (13.0-17.5) 9.0g/dL (13.0-17.5) Hematocrit 26.2% (39.0-53.0) 27.7% (39.0-53.0) Mean Corpuscular Volume 99fL (79-100) 99fL (79-100) Mean Corpuscular Hemoglobin 32pg (25-35) 32pg (25-35) Mean Corpuscular Hemoglobin Concent 32g/dL (31-37) 32g/dL (31-37) Red Cell Distribution Width 22.5% (11.5-14.5) 22.3% (11.5-14.5) Platelet Count 61x10^3/uL (140-400) 70x10^3/uL (140-400) Neutrophils (%) (Auto) 88% (31-73) Lymphocytes (%) (Auto) 1% (24-48) Monocytes (%) (Auto) 11% (0-9) Eosinophils (%) (Auto) 0% (0-3) Basophils (%) (Auto) 0% (0-3) Neutrophils # (Auto) 32.2x10^3uL (1.8-7.7) Lymphocytes # (Auto) 0.4x10^3/uL (1.0-4.8) Monocytes # (Auto) 4.1x10^3/uL (0.0-1.1) Eosinophils # (Auto) 0.0x10^3/uL (0.0-0.7) Basophils # (Auto) 0.1x10^3/uL (0.0-0.2) Test 02/06/17 08:00 02/06/17 08:25 O2 Saturation 98% (92-99) Arterial Blood pH 7.46 (7.35-7.45) Arterial Blood pCO2 at Patient Temp 39mmHg (35-46) Arterial Blood pO2 at Patient Temp 119mmHg (65-108) Arterial Blood HCO3 28mmol/L (21-28) Arterial Blood Base Excess 4mmol/L (-3-3) FiO2 35 Sodium Level 146mmol/L (136-145) Potassium Level 3.4mmol/L (3.5-5.1) Chloride Level 108mmol/L (98-107) Carbon Dioxide Level 31mmol/L (21-32) Anion Gap 7 (6-14) Blood Urea Nitrogen 27mg/dL (8-26) Creatinine 0.8mg/dL (0.7-1.3) Estimated GFR (Cockcroft-Gault) 93.5 BUN/Creatinine Ratio 34 (6-20) Glucose Level 163mg/dL (70-99) Calcium Level 8.3mg/dL (8.5-10.1) Total Bilirubin 0.8mg/dL (0.2-1.0) Aspartate Amino Transf (AST/SGOT) 19U/L (15-37) Alanine Aminotransferase (ALT/SGPT) 26U/L (16-63) Alkaline Phosphatase 111U/L (46-116) Total Protein 5.3g/dL (6.4-8.2) Albumin 1.7g/dL (3.4-5.0) Albumin/Globulin Ratio 0.5 (1.0-1.7) Laboratory Tests Test 02/05/17 12:51 02/05/17 20:55 02/06/17 06:20 02/06/17 08:00 Glucose (Fingerstick) 112mg/dL (70-99) White Blood Count 32.1x10^3/uL (4.0-11.0) 36.9x10^3/uL (4.0-11.0) Red Blood Count 2.65x10^6/uL (4.30-5.70) 2.81x10^6/uL (4.30-5.70) Hemoglobin 8.5g/dL (13.0-17.5) 9.0g/dL (13.0-17.5) Hematocrit 26.2% (39.0-53.0) 27.7% (39.0-53.0) Mean Corpuscular Volume 99fL (79-100) 99fL (79-100) Mean Corpuscular Hemoglobin 32pg (25-35) 32pg (25-35) Mean Corpuscular Hemoglobin Concent 32g/dL (31-37) 32g/dL (31-37) Red Cell Distribution Width 22.5% (11.5-14.5) 22.3% (11.5-14.5) Platelet Count 61x10^3/uL (140-400) 70x10^3/uL (140-400) Neutrophils (%) (Auto) 88% (31-73) Lymphocytes (%) (Auto) 1% (24-48) Monocytes (%) (Auto) 11% (0-9) Eosinophils (%) (Auto) 0% (0-3) Basophils (%) (Auto) 0% (0-3) Neutrophils # (Auto) 32.2x10^3uL (1.8-7.7) Lymphocytes # (Auto) 0.4x10^3/uL (1.0-4.8) Monocytes # (Auto) 4.1x10^3/uL (0.0-1.1) Eosinophils # (Auto) 0.0x10^3/uL (0.0-0.7) Basophils # (Auto) 0.1x10^3/uL (0.0-0.2) O2 Saturation 98% (92-99) Arterial Blood pH 7.46 (7.35-7.45) Arterial Blood pCO2 at Patient Temp 39mmHg (35-46) Arterial Blood pO2 at Patient Temp 119mmHg (65-108) Arterial Blood HCO3 28mmol/L (21-28) Arterial Blood Base Excess 4mmol/L (-3-3) FiO2 35 Test 02/06/17 08:25 Sodium Level 146mmol/L (136-145) Potassium Level 3.4mmol/L (3.5-5.1) Chloride Level 108mmol/L (98-107) Carbon Dioxide Level 31mmol/L (21-32) Anion Gap 7 (6-14) Blood Urea Nitrogen 27mg/dL (8-26) Creatinine 0.8mg/dL (0.7-1.3) Estimated GFR (Cockcroft-Gault) 93.5 BUN/Creatinine Ratio 34 (6-20) Glucose Level 163mg/dL (70-99) Calcium Level 8.3mg/dL (8.5-10.1) Total Bilirubin 0.8mg/dL (0.2-1.0) Aspartate Amino Transf (AST/SGOT) 19U/L (15-37) Alanine Aminotransferase (ALT/SGPT) 26U/L (16-63) Alkaline Phosphatase 111U/L (46-116) Total Protein 5.3g/dL (6.4-8.2) Albumin 1.7g/dL (3.4-5.0) Albumin/Globulin Ratio 0.5 (1.0-1.7) Medications Active Scripts Medications Dose Route/Sig Days Date Category Duoneb 0.5-3(2.5) Mg/3 Ml (Albuterol/Ipratropium) 3 Ml Ampul.neb 3 Ml NEB QID 02/03/17 Reported Hydrocodone-Apap 5-325 (Hydrocodone Bit/Acetaminophen) 1 Each Tablet 0.5 Tab PO PRN Q4HRS PRN 02/03/17 Reported Amiodarone Hcl 200 Mg Tablet 1 Tab PO DAILY 02/03/17 Reported Aspirin 81 Mg Tab.chew 1 Tab PO DAILY 02/03/17 Reported Bisacodyl 10 Mg Supp.rect 10 Mg RC PRN BID PRN 02/03/17 Reported Chlorhexidine Flavor (Chlorhexidine) 1 Ml Liquid 1 Ml MC BID 02/03/17 Reported Folic Acid 1 Mg Tablet 1 Tab PO DAILY 02/03/17 Reported Furosemide 40 Mg Tablet 1 Tab PO DAILY 02/03/17 Reported Multi-Vitamin Daily (Multivitamin) 1 Each Tablet 1 Each PO DAILY16 02/03/17 Reported Thiamine Hcl 100 Mg Tablet 100 Mg PO DAILY 02/03/17 Reported Prednisone 10 Mg Tablet 10 Mg PO DAILY 02/03/17 Reported Acetaminophen 325 Mg Tablet 650 Mg PO PRN Q6HRS PRN 02/03/17 Reported Famotidine 20 Mg Tablet 20 Mg PO BID 02/03/17 Reported Levofloxacin-D5w 250 Mg/50 Ml (Levofloxacin/D5w) 250 Mg/50 Ml Piggyback 250 Mg IV Q24H 02/03/17 Reported Piperacil-Tazobact 3.375 Gm Vl (Piperacillin Sodium/Tazobactam) 3.375 Gm Vial 3.375 Gm IV Q6HRS 02/03/17 Reported Vancomycin Hcl 1 Gm Vial 1 Gm IV DAILY 02/03/17 Reported Impression . 1. Acute on chronic respiratory failure, multifactorial secondary to new onset sepsis./ new CVA vs brain mets 2. History of methicillin-resistant Staph aureus pneumonia. BAL was performed on 01/17/2017, revealing methicillin resistant Staphylococcus aureus, cytology was negative for malignant cells. 3. New onset atrial fibrillation. 4. Metabolic toxic encephalopathy. 5. Cerebral arachnoid cyst, previously evaluated by Neurosurgery. No intervention was required or recommended. 6. Coronary artery disease with previous stent placement. 7. Severe protein malnutrition. 8. Alcoholism. 9. Status post tracheotomy. 10. Persistent encephalopathy Plan . AC mode, No change would recommend comfort care palliative care meeting today to determine goals of care We will continue current empiric antibiotics, sedation, mechanical support. follow neuro rec antibiotics oncology recommendations NAVEEN CELESTIN MD Feb 06, 2017 11:01
[2017-02-06 11:26] LABS: PLT ESTIMATE DECREASED (ADEQUATE)
[2017-02-06 11:27] LABS: ANISOCYTOSIS MOD; OVALOCYTES PRESENT; POIKILOCYTOSIS PRESENT
--- NOTE | 2017-02-06 13:21 | PDOC ---
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 Plan I do not believe that anticonvulsants or resumption of steroids would be useful Subjective none Objective Vital Signs Date Time Temp Pulse Resp B/P Pulse Ox O2 Delivery O2 Flow Rate FiO2 02/06/17 10:00 125 25 147/80 100 Ventilator 02/06/17 08:00 99.1 99.1 Intake and Output 02/06/17 07:00 Intake Total 4876 ml Output Total 1483 ml Balance 3393 ml Intake Oral 0 ml IV Total 1484 ml Tube Feeding 2153 ml Blood Product 581 ml Blood Product IV Normal Saline Flush 50 ml Other 608 ml Output Urine Total 1123 ml Gastric Drainage Total 360 ml PHYSICAL EXAM No anisocoria. Both pupils react to light. Reflexes are 1+. Plantar responses are flexor. He does not move to command. He does not cooperate with coordination and sensory testing. Review of Relevant I have reviewed the following items yon (where applicable) has been applied. Labs Laboratory Tests Test 02/04/17 18:55 02/05/17 00:24 02/05/17 05:50 02/05/17 08:02 Glucose (Fingerstick) 114mg/dL (70-99) 127mg/dL (70-99) White Blood Count 22.7x10^3/uL (4.0-11.0) Red Blood Count 1.89x10^6/uL (4.30-5.70) Hemoglobin 6.2g/dL (13.0-17.5) Hematocrit 19.7% (39.0-53.0) Mean Corpuscular Volume 104fL (79-100) Mean Corpuscular Hemoglobin 33pg (25-35) Mean Corpuscular Hemoglobin Concent 32g/dL (31-37) Red Cell Distribution Width 22.1% (11.5-14.5) Platelet Count 43x10^3/uL (140-400) Neutrophils (%) (Auto) 81% (31-73) Lymphocytes (%) (Auto) 1% (24-48) Monocytes (%) (Auto) 18% (0-9) Eosinophils (%) (Auto) 0% (0-3) Basophils (%) (Auto) 0% (0-3) Neutrophils # (Auto) 18.4x10^3uL (1.8-7.7) Lymphocytes # (Auto) 0.3x10^3/uL (1.0-4.8) Monocytes # (Auto) 4.0x10^3/uL (0.0-1.1) Eosinophils # (Auto) 0.0x10^3/uL (0.0-0.7) Basophils # (Auto) 0.0x10^3/uL (0.0-0.2) O2 Saturation 98% (92-99) Arterial Blood pH 7.48 (7.35-7.45) Arterial Blood pCO2 at Patient Temp 39mmHg (35-46) Arterial Blood pO2 at Patient Temp 107mmHg (65-108) Arterial Blood HCO3 28mmol/L (21-28) Arterial Blood Base Excess 4mmol/L (-3-3) FiO2 35 Test 02/05/17 12:51 02/05/17 20:55 02/06/17 06:20 02/06/17 08:00 Glucose (Fingerstick) 112mg/dL (70-99) White Blood Count 32.1x10^3/uL (4.0-11.0) 36.9x10^3/uL (4.0-11.0) Red Blood Count 2.65x10^6/uL (4.30-5.70) 2.81x10^6/uL (4.30-5.70) Hemoglobin 8.5g/dL (13.0-17.5) 9.0g/dL (13.0-17.5) Hematocrit 26.2% (39.0-53.0) 27.7% (39.0-53.0) Mean Corpuscular Volume 99fL (79-100) 99fL (79-100) Mean Corpuscular Hemoglobin 32pg (25-35) 32pg (25-35) Mean Corpuscular Hemoglobin Concent 32g/dL (31-37) 32g/dL (31-37) Red Cell Distribution Width 22.5% (11.5-14.5) 22.3% (11.5-14.5) Platelet Count 61x10^3/uL (140-400) 70x10^3/uL (140-400) Neutrophils (%) (Auto) 88% (31-73) Lymphocytes (%) (Auto) 1% (24-48) Monocytes (%) (Auto) 11% (0-9) Eosinophils (%) (Auto) 0% (0-3) Basophils (%) (Auto) 0% (0-3) Neutrophils # (Auto) 32.2x10^3uL (1.8-7.7) Lymphocytes # (Auto) 0.4x10^3/uL (1.0-4.8) Monocytes # (Auto) 4.1x10^3/uL (0.0-1.1) Eosinophils # (Auto) 0.0x10^3/uL (0.0-0.7) Basophils # (Auto) 0.1x10^3/uL (0.0-0.2) Segmented Neutrophils % 85% (35-66) Band Neutrophils % 1% (0-9) Lymphocytes % 2% (24-48) Monocytes % 11% (0-10) Metamyelocytes % 1% (0-0) Platelet Estimate Decreased (ADEQUATE) Poikilocytosis Present Basophilic Stippling Present Anisocytosis Mod Ovalocytes Present O2 Saturation 98% (92-99) Arterial Blood pH 7.46 (7.35-7.45) Arterial Blood pCO2 at Patient Temp 39mmHg (35-46) Arterial Blood pO2 at Patient Temp 119mmHg (65-108) Arterial Blood HCO3 28mmol/L (21-28) Arterial Blood Base Excess 4mmol/L (-3-3) FiO2 35 Test 02/06/17 08:25 Sodium Level 146mmol/L (136-145) Potassium Level 3.4mmol/L (3.5-5.1) Chloride Level 108mmol/L (98-107) Carbon Dioxide Level 31mmol/L (21-32) Anion Gap 7 (6-14) Blood Urea Nitrogen 27mg/dL (8-26) Creatinine 0.8mg/dL (0.7-1.3) Estimated GFR (Cockcroft-Gault) 93.5 BUN/Creatinine Ratio 34 (6-20) Glucose Level 163mg/dL (70-99) Calcium Level 8.3mg/dL (8.5-10.1) Total Bilirubin 0.8mg/dL (0.2-1.0) Aspartate Amino Transf (AST/SGOT) 19U/L (15-37) Alanine Aminotransferase (ALT/SGPT) 26U/L (16-63) Alkaline Phosphatase 111U/L (46-116) Total Protein 5.3g/dL (6.4-8.2) Albumin 1.7g/dL (3.4-5.0) Albumin/Globulin Ratio 0.5 (1.0-1.7) Laboratory Tests Test 02/05/17 20:55 02/06/17 06:20 02/06/17 08:00 02/06/17 08:25 White Blood Count 32.1x10^3/uL (4.0-11.0) 36.9x10^3/uL (4.0-11.0) Red Blood Count 2.65x10^6/uL (4.30-5.70) 2.81x10^6/uL (4.30-5.70) Hemoglobin 8.5g/dL (13.0-17.5) 9.0g/dL (13.0-17.5) Hematocrit 26.2% (39.0-53.0) 27.7% (39.0-53.0) Mean Corpuscular Volume 99fL (79-100) 99fL (79-100) Mean Corpuscular Hemoglobin 32pg (25-35) 32pg (25-35) Mean Corpuscular Hemoglobin Concent 32g/dL (31-37) 32g/dL (31-37) Red Cell Distribution Width 22.5% (11.5-14.5) 22.3% (11.5-14.5) Platelet Count 61x10^3/uL (140-400) 70x10^3/uL (140-400) Neutrophils (%) (Auto) 88% (31-73) Lymphocytes (%) (Auto) 1% (24-48) Monocytes (%) (Auto) 11% (0-9) Eosinophils (%) (Auto) 0% (0-3) Basophils (%) (Auto) 0% (0-3) Neutrophils # (Auto) 32.2x10^3uL (1.8-7.7) Lymphocytes # (Auto) 0.4x10^3/uL (1.0-4.8) Monocytes # (Auto) 4.1x10^3/uL (0.0-1.1) Eosinophils # (Auto) 0.0x10^3/uL (0.0-0.7) Basophils # (Auto) 0.1x10^3/uL (0.0-0.2) Segmented Neutrophils % 85% (35-66) Band Neutrophils % 1% (0-9) Lymphocytes % 2% (24-48) Monocytes % 11% (0-10) Metamyelocytes % 1% (0-0) Platelet Estimate Decreased (ADEQUATE) Poikilocytosis Present Basophilic Stippling Present Anisocytosis Mod Ovalocytes Present O2 Saturation 98% (92-99) Arterial Blood pH 7.46 (7.35-7.45) Arterial Blood pCO2 at Patient Temp 39mmHg (35-46) Arterial Blood pO2 at Patient Temp 119mmHg (65-108) Arterial Blood HCO3 28mmol/L (21-28) Arterial Blood Base Excess 4mmol/L (-3-3) FiO2 35 Sodium Level 146mmol/L (136-145) Potassium Level 3.4mmol/L (3.5-5.1) Chloride Level 108mmol/L (98-107) Carbon Dioxide Level 31mmol/L (21-32) Anion Gap 7 (6-14) Blood Urea Nitrogen 27mg/dL (8-26) Creatinine 0.8mg/dL (0.7-1.3) Estimated GFR (Cockcroft-Gault) 93.5 BUN/Creatinine Ratio 34 (6-20) Glucose Level 163mg/dL (70-99) Calcium Level 8.3mg/dL (8.5-10.1) Total Bilirubin 0.8mg/dL (0.2-1.0) Aspartate Amino Transf (AST/SGOT) 19U/L (15-37) Alanine Aminotransferase (ALT/SGPT) 26U/L (16-63) Alkaline Phosphatase 111U/L (46-116) Total Protein 5.3g/dL (6.4-8.2) Albumin 1.7g/dL (3.4-5.0) Albumin/Globulin Ratio 0.5 (1.0-1.7) Microbiology 4/3/17 Blood Culture - Preliminary, Resulted NO GROWTH AFTER 2 DAYS Medications Current Medications Vancomycin HCl 1 each 1 each PRN DAILY PRN MC SEE COMMENTS Last administered on 02/03/17 16:14; Start 02/03/17 at 16:00; Stop 02/04/17 at 07:12; Status DC Piperacillin Sod/ Tazobactam Sod 3.375 gm/Sodium Chloride 50 ml @ 100 mls/hr Q6HRS IV Last administered on 02/05/17 05:53; Start 02/03/17 at 18:00; Stop 02/05 at 07:56; Status DC Micafungin Sodium 100 mg/Dextrose 100 ml @ 100 mls/hr Q24H IV Last administered on 02/05/17 15:31; Start 02/03/17 at 16:00 Vancomycin HCl 1.75 gm/Sodium Chloride 500 ml @ 250 mls/hr 1X ONCE IV ; Start 02/03/17 at 16:30; Stop 02/03/17 at 18:29; Status Cancel Vancomycin HCl/ Sodium Chloride (Iv Sodium Chloride 0.9% 250ml) 250 ml @ 250 mls/hr Q24H IV Last administered on 02/03/17 17:22; Start 02/03/17 at 17:00; Stop 02/04/17 at 07:12; Status DC Acetaminophen 650 mg 650 mg PRN Q6HRS PRN PEG MILD PAIN / TEMP Last administered on 02/05/17 00:50; Start 02/03/17 at 23:45 Linezolid (Zyvox Premix) 300 ml @ 300 mls/hr Q12HR IV Last administered on 02/06 08:52; Start 02/04/17 at 09:00 Ondansetron HCl (Zofran) 4 mg PRN Q6HRS PRN IV NAUSEA/VOMITING; Start 02/04/17 at 08:00 Pantoprazole Sodium (Protonix Vial) 40 mg DAILYAC IVP ; Start 02/04/17 at 09:00; Stop 02/04/17 at 11:30; Status DC Amiodarone HCl (Cordarone) 200 mg DAILY PO Last administered on 02/06/17 08:55 ; Start 02/04/17 at 09:00 Bisacodyl (Dulcolax Supp) 10 mg PRN BID PRN RC CONSTIPATION; Start 02/04/17 at 08:00 Famotidine (Pepcid) 20 mg BID PO Last administered on 02/06/17 08:54; Start 02/04/17 at 09:00 Folic Acid (Folic Acid) 1 mg DAILY PO Last administered on 02/06/17 08:54; Start 02/04/17 at 09:00 Furosemide (Lasix) 40 mg DAILY PO Last administered on 02/06/17 08:55; Start at 09:00 Acetaminophen/ Hydrocodone Bitart (Lortab 5/325) 0.5 tab PRN Q4HRS PRN PO PAIN ; Start 02/04/17 at 08:00 Albuterol/ Ipratropium (Duoneb) 3 ml QID NEB Last administered on 02/06/17 07: 47; Start 02/04/17 at 09:00 Prednisone (Prednisone) 10 mg DAILY PO Last administered on 02/06/17 08:54; Start 02/04/17 at 09:00 Thiamine HCl (Vitamin B-1) 100 mg DAILY PO Last administered on 02/06/17 08:55 ; Start 02/04/17 at 09:00 Chlorhexidine Gluconate (Peridex) 1 ml BID MM Last administered on 02/06/17 08: 54; Start 02/04/17 at 09:00 Multivitamins (Thera M Plus) 1 tab DAILY PO Last administered on 02/06/17 08:55 ; Start 02/04/17 at 09:00 Potassium Chloride (KCl Oral Soln) 20 meq DAILY PEG Last administered on 08:55; Start 02/04/17 at 10:00 Iohexol (Omnipaque 300 Mg/ml) 75 ml 1X ONCE IV Last administered on 02/04/17 13:45; Start 02/04/17 at 13:30; Stop 02/04/17 at 13:31; Status DC Info 1 each 1 each PRN DAILY PRN MC SEE COMMENTS; Start 02/04/17 at 13:15; Stop 02/06/17 at 13:14; Status DC Propofol 100 ml @ 0 mls/hr CONT PRN IV SEE I/O RECORD Last administered on 01:23; Start 02/04/17 at 15:00 Cefepime HCl 2 gm/ Sodium Chloride 100 ml @ 200 mls/hr Q8HRS IV Last administered on 02/06/17 05:34; Start 02/05/17 at 08:00 Metronidazole (FLAGYL 500Mmg PREMIX) 100 ml @ 100 mls/hr Q8HRS IV Last administered on 02/06/17 05:34; Start 02/05/17 at 08:00 Loperamide HCl (Imodium) 2 mg PRN Q1HR PRN PEG DIARRHEA; Start 02/05/17 at 10:30 Morphine Sulfate (Morphine Oral Solution) 10 mg PRN Q3HRS PRN PO PAIN; Start at 08:45 Morphine Sulfate 2 mg PRN Q2HR PRN IV PAIN; Start 02/06/17 at 08:45 Lorazepam (Ativan) 0.5 mg PRN Q8HRS PRN PO ANXIETY / AGITATION; Start 02/06/17 at 08:45 Scopolamine (Transderm-Scop) 1 patch Q3DAYS TD Last administered on 02/06/17 09 :34; Start 02/06/17 at 09:00 Active Scripts Active Reported Duoneb 0.5-3(2.5) Mg/3 Ml (Albuterol/Ipratropium) 3 Ml Ampul.neb 3 Ml NEB QID Hydrocodone-Apap 5-325 (Hydrocodone Bit/Acetaminophen) 1 Each Tablet 0.5 Tab PO PRN Q4HRS PRN Amiodarone Hcl 200 Mg Tablet 1 Tab PO DAILY Aspirin 81 Mg Tab.chew 1 Tab PO DAILY Bisacodyl 10 Mg Supp.rect 10 Mg RC PRN BID PRN Chlorhexidine Flavor (Chlorhexidine) 1 Ml Liquid 1 Ml MC BID Folic Acid 1 Mg Tablet 1 Tab PO DAILY Furosemide 40 Mg Tablet 1 Tab PO DAILY Multi-Vitamin Daily (Multivitamin) 1 Each Tablet 1 Each PO DAILY16 Thiamine Hcl 100 Mg Tablet 100 Mg PO DAILY Prednisone 10 Mg Tablet 10 Mg PO DAILY Acetaminophen 325 Mg Tablet 650 Mg PO PRN Q6HRS PRN Famotidine 20 Mg Tablet 20 Mg PO BID Levofloxacin-D5w 250 Mg/50 Ml (Levofloxacin/D5w) 250 Mg/50 Ml Piggyback 250 Mg IV Q24H Piperacil-Tazobact 3.375 Gm Vl (Piperacillin Sodium/Tazobactam) 3.375 Gm Vial 3.375 Gm IV Q6HRS Vancomycin Hcl 1 Gm Vial 1 Gm IV DAILY Vitals/I & O Vital Sign - Last 24 Hours 02/05/17 02/05/17 02/05/17 02/05/17 14:00 15:00 15:39 16:00 Temp 99.3 99.3 Pulse 94 94 100 B/P 132/76 119/72 117/65 Pulse Ox 94 100 99 100 O2 Delivery Ventilator Ventilator Ventilator Ventilator 02/05/17 02/05/17 02/05/17 02/05/17 16:00 17:00 17:02 18:00 Pulse 113 111 Resp 26 B/P 135/82 101/62 Pulse Ox 100 100 100 O2 Delivery Mechanical Ventilator Ventilator Ventilator Ventilator 02/05/17 02/05/17 02/05/17 02/05/17 18:10 18:25 18:25 19:00 Temp 99.3 99.3 Pulse 109 118 124 Resp 22 26 26 28 B/P 141/78 101/79 101/79 133/79 Pulse Ox 100 O2 Delivery Ventilator 02/05/17 02/05/17 02/05/17 02/05/17 19:50 20:00 20:00 21:00 Temp 100.0 100.0 Pulse 128 112 Resp 26 26 B/P 156/80 119/90 Pulse Ox 99 100 100 O2 Delivery Ventilator Mechanical Ventilator Ventilator Ventilator 02/05/17 02/05/17 02/05/17 02/06/17 22:00 23:00 23:08 00:00 Pulse 113 112 Resp 47 48 B/P 159/92 151/93 Pulse Ox 100 100 100 O2 Delivery Ventilator Ventilator Ventilator Mechanical Ventilator 02/06/17 02/06/17 02/06/17 02/06/17 00:00 01:00 01:56 02:00 Temp 100.3 100.3 Pulse 108 108 102 Resp 30 24 35 B/P 133/74 165/92 125/63 Pulse Ox 100 100 100 100 O2 Delivery Ventilator Ventilator Ventilator Ventilator 02/06/17 02/06/17 02/06/17 02/06/17 03:01 03:37 04:00 04:00 Temp 100.5 100.5 Pulse 107 112 Resp 27 36 B/P 119/74 119/70 Pulse Ox 100 100 100 O2 Delivery Ventilator Ventilator Ventilator Mechanical Ventilator 4/502/06/17 02/06/17 02/06/17 05:00 05:44 06:00 07:00 Pulse 105 109 118 Resp 18 22 19 B/P 123/65 145/86 152/84 Pulse Ox 100 100 100 100 O2 Delivery Ventilator Ventilator Ventilator Ventilator 02/06/17 02/06/17 02/06/17 02/06/17 07:47 08:00 08:00 08:55 Temp 99.1 99.1 Pulse 117 117 Resp 23 B/P 117/71 117/71 Pulse Ox 100 100 O2 Delivery Ventilator Mechanical Ventilator Ventilator 02/06/17 02/06/17 02/06/17 09:00 09:00 10:00 Pulse 112 125 Resp 24 25 B/P 137/79 147/80 Pulse Ox 100 100 100 O2 Delivery Ventilator Ventilator Ventilator Intake and Output 02/05/17 02/05/17 02/06/17 15:00 23:00 07:00 Intake Total 0 ml 938 ml 3938 ml Output Total 550 ml 286 ml 647 ml Balance -550 ml 652 ml 3291 ml EDWIN WALLACE MD Feb 06, 2017 13:21
--- NOTE | 2017-02-06 14:14 | PDOC2 ---
PALLIATIVE CARE Palliative Care Note Palliative Care Patient unresponsive. On vent 35% per tracheostomy Met with Elisabet. February per phone; Lior-marlene son, Korina Daughter and Ray. Reviewed medical condition: Respiratory Failure; anoxic encephalopathy; pneumonia; brain lesions unknown etiology; anemia; sepsis; progressive decline with aggressive therapy Labs; CT head, CT Chest results reviewed. Discussed options for care; continue current treatment plan vs comfort care and allow natural . Family shared that patient was active and would not want to be cared for in a nursing facility. Enjoyed golf and traveling. Worked in [employer]: Does not attend synagogue but believe in God. They have discussed stopping aggressive treatments with physicians and would like to proceed with this option on 1499. Confirmed DNR. Family would like to give family time to say their "goodbyes" Plan: Comfort Care 1499 plan to withdraw treatments. DNR. INDERJIT REYES Feb 06, 2017 14:14
[2017-02-06] MEDS: MICAFUNGIN 100 MG in IV DEXTROSE 5% 100 ML IV SCH (16:32)
[2017-02-07] VITALS (19 sets, daily range): BP systolic 58–137; BP diastolic 33–90
[2017-02-07] MEDS: PROPOFOL 100 ML IV PRN (01:57)
[2017-02-07] MEDS: IPRATRPIUM/ALBUTEROL 0.5/2.5MG 3 ML NEBU. NEB SCH ×4 (08:16→21:00)
[2017-02-07] MEDS: MULTIVITAMIN with MINERAL TABLET. PO SCH (08:16)
[2017-02-07] MEDS: FOLIC ACID 1 MG TABLET. PO SCH (08:16)
[2017-02-07] MEDS: THIAMINE 100 MG TABLET. PO SCH (08:16)
[2017-02-07] MEDS: CHLORHEXIDINE 0.12% 15 ML MOUTHWASH. MM SCH ×2 (08:16→21:00)
[2017-02-07] MEDS: FAMOTIDINE 20 MG TABLET. PO SCH (08:16)
[2017-02-07] MEDS: AMIODARONE HCL 200 MG TABLET. PO SCH (08:16)
[2017-02-07] MEDS: PREDNISONE 10 MG TABLET PO SCH (08:16)
[2017-02-07] MEDS: POTASSIUM CHLORIDE 20 MEQ/15 ML ORAL LIQUID. PEG SCH (08:17)
[2017-02-07] MEDS: FUROSEMIDE 40 MG TABLET. PO SCH (08:26)
[2017-02-07 08:46] LABS: HCO3 ABG 29 mmol/L (21-28); PCO2 ABG 41 mmHg (35-46); PH ABG 7.46 (7.35-7.45); PO2 ABG 121 mmHg (65-108); SAT O2 ABG 98 % (92-99)
[2017-02-07 08:49] LABS: FIO2 ABG 35
[2017-02-07] MEDS ORDERED: POTASSIUM CHLORIDE 20 MEQ/15 ML ORAL LIQUID. PEG ONE (09:30)
--- NOTE | 2017-02-07 09:46 | PDOC ---
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 Plan Note plans to pursue palliative, comfort care. Neurology signs off Subjective None Objective Vital Signs Date Time Temp Pulse Resp B/P Pulse Ox O2 Delivery O2 Flow Rate FiO2 02/07/17 09:00 88 14 123/76 100 Ventilator 02/07/17 07:00 98.8 98.8 Intake and Output 02/07/17 07:00 Intake Total 1539 ml Output Total 2194 ml Balance -655 ml IV Total 1139 ml Tube Feeding 400 ml Output Urine Total 2194 ml Gastric Drainage Total 0 ml PHYSICAL EXAM No anisocoria. Both pupils react to light. Reflexes are 1+. Plantar responses are flexor. He does not move to command. He does not cooperate with coordination and sensory testing. Review of Relevant I have reviewed the following items yon (where applicable) has been applied. Labs Laboratory Tests Test 02/05/17 12:51 02/05/17 20:55 02/05/17 23:25 02/06/17 00:25 Glucose (Fingerstick) 112mg/dL (70-99) White Blood Count 32.1x10^3/uL (4.0-11.0) Red Blood Count 2.65x10^6/uL (4.30-5.70) Hemoglobin 8.5g/dL (13.0-17.5) Hematocrit 26.2% (39.0-53.0) Mean Corpuscular Volume 99fL (79-100) Mean Corpuscular Hemoglobin 32pg (25-35) Mean Corpuscular Hemoglobin Concent 32g/dL (31-37) Red Cell Distribution Width 22.5% (11.5-14.5) Platelet Count 61x10^3/uL (140-400) Nasal Screen MRSA (PCR) Positive (Negative) Clostridium difficile Toxin (PCR) Negative (Negative) Test 02/06/17 06:20 02/06/17 08:00 02/06/17 08:25 02/07/17 08:30 White Blood Count 36.9x10^3/uL (4.0-11.0) Red Blood Count 2.81x10^6/uL (4.30-5.70) Hemoglobin 9.0g/dL (13.0-17.5) Hematocrit 27.7% (39.0-53.0) Mean Corpuscular Volume 99fL (79-100) Mean Corpuscular Hemoglobin 32pg (25-35) Mean Corpuscular Hemoglobin Concent 32g/dL (31-37) Red Cell Distribution Width 22.3% (11.5-14.5) Platelet Count 70x10^3/uL (140-400) Neutrophils (%) (Auto) 88% (31-73) Lymphocytes (%) (Auto) 1% (24-48) Monocytes (%) (Auto) 11% (0-9) Eosinophils (%) (Auto) 0% (0-3) Basophils (%) (Auto) 0% (0-3) Neutrophils # (Auto) 32.2x10^3uL (1.8-7.7) Lymphocytes # (Auto) 0.4x10^3/uL (1.0-4.8) Monocytes # (Auto) 4.1x10^3/uL (0.0-1.1) Eosinophils # (Auto) 0.0x10^3/uL (0.0-0.7) Basophils # (Auto) 0.1x10^3/uL (0.0-0.2) Segmented Neutrophils % 85% (35-66) Band Neutrophils % 1% (0-9) Lymphocytes % 2% (24-48) Monocytes % 11% (0-10) Metamyelocytes % 1% (0-0) Platelet Estimate Decreased (ADEQUATE) Poikilocytosis Present Basophilic Stippling Present Anisocytosis Mod Ovalocytes Present O2 Saturation 98% (92-99) 98% (92-99) Arterial Blood pH 7.46 (7.35-7.45) 7.46 (7.35-7.45) Arterial Blood pCO2 at Patient Temp 39mmHg (35-46) 41mmHg (35-46) Arterial Blood pO2 at Patient Temp 119mmHg (65-108) 121mmHg (65-108) Arterial Blood HCO3 28mmol/L (21-28) 29mmol/L (21-28) Arterial Blood Base Excess 4mmol/L (-3-3) 5mmol/L (-3-3) FiO2 35 35 Sodium Level 146mmol/L (136-145) Potassium Level 3.4mmol/L (3.5-5.1) Chloride Level 108mmol/L (98-107) Carbon Dioxide Level 31mmol/L (21-32) Anion Gap 7 (6-14) Blood Urea Nitrogen 27mg/dL (8-26) Creatinine 0.8mg/dL (0.7-1.3) Estimated GFR (Cockcroft-Gault) 93.5 BUN/Creatinine Ratio 34 (6-20) Glucose Level 163mg/dL (70-99) Calcium Level 8.3mg/dL (8.5-10.1) Total Bilirubin 0.8mg/dL (0.2-1.0) Aspartate Amino Transf (AST/SGOT) 19U/L (15-37) Alanine Aminotransferase (ALT/SGPT) 26U/L (16-63) Alkaline Phosphatase 111U/L (46-116) Total Protein 5.3g/dL (6.4-8.2) Albumin 1.7g/dL (3.4-5.0) Albumin/Globulin Ratio 0.5 (1.0-1.7) Laboratory Tests Test 02/07/17 08:30 O2 Saturation 98% (92-99) Arterial Blood pH 7.46 (7.35-7.45) Arterial Blood pCO2 at Patient Temp 41mmHg (35-46) Arterial Blood pO2 at Patient Temp 121mmHg (65-108) Arterial Blood HCO3 29mmol/L (21-28) Arterial Blood Base Excess 5mmol/L (-3-3) FiO2 35 Microbiology 02/04/17 Blood Culture - Preliminary, Resulted NO GROWTH AFTER 3 DAYS Medications Current Medications Vancomycin HCl 1 each 1 each PRN DAILY PRN MC SEE COMMENTS Last administered on 02/03/17 16:14; Start 02/03/17 at 16:00; Stop 02/04/17 at 07:12; Status DC Piperacillin Sod/ Tazobactam Sod 3.375 gm/Sodium Chloride 50 ml @ 100 mls/hr Q6HRS IV Last administered on 02/05/17 05:53; Start 02/03/17 at 18:00; Stop 02/05 at 07:56; Status DC Micafungin Sodium 100 mg/Dextrose 100 ml @ 100 mls/hr Q24H IV Last administered on 02/06/17 16:32; Start 02/03/17 at 16:00; Stop 02/06/17 at 19:12; Status DC Vancomycin HCl 1.75 gm/Sodium Chloride 500 ml @ 250 mls/hr 1X ONCE IV ; Start 02/03/17 at 16:30; Stop 02/03/17 at 18:29; Status Cancel Vancomycin HCl/ Sodium Chloride (Iv Sodium Chloride 0.9% 250ml) 250 ml @ 250 mls/hr Q24H IV Last administered on 02/03/17 17:22; Start 02/03/17 at 17:00; Stop 02/04/17 at 07:12; Status DC Acetaminophen 650 mg 650 mg PRN Q6HRS PRN PEG MILD PAIN / TEMP Last administered on 02/05/17 00:50; Start 02/03/17 at 23:45 Linezolid (Zyvox Premix) 300 ml @ 300 mls/hr Q12HR IV Last administered on 02/06 08:52; Start 02/04/17 at 09:00; Stop 02/06/17 at 19:12; Status DC Ondansetron HCl (Zofran) 4 mg PRN Q6HRS PRN IV NAUSEA/VOMITING; Start 02/04/17 at 08:00 Pantoprazole Sodium (Protonix Vial) 40 mg DAILYAC IVP ; Start 02/04/17 at 09:00; Stop 02/04/17 at 11:30; Status DC Amiodarone HCl (Cordarone) 200 mg DAILY PO Last administered on 02/07/17 08:16 ; Start 02/04/17 at 09:00 Bisacodyl (Dulcolax Supp) 10 mg PRN BID PRN RC CONSTIPATION; Start 02/04/17 at 08:00 Famotidine (Pepcid) 20 mg BID PO Last administered on 02/07/17 08:16; Start 02/04/17 at 09:00 Folic Acid (Folic Acid) 1 mg DAILY PO Last administered on 02/07/17 08:16; Start 02/04/17 at 09:00 Furosemide (Lasix) 40 mg DAILY PO Last administered on 02/07/17 08:26; Start at 09:00 Acetaminophen/ Hydrocodone Bitart (Lortab 5/325) 0.5 tab PRN Q4HRS PRN PO PAIN ; Start 02/04/17 at 08:00 Albuterol/ Ipratropium (Duoneb) 3 ml QID NEB Last administered on 02/07/17 08: 16; Start 02/04/17 at 09:00 Prednisone (Prednisone) 10 mg DAILY PO Last administered on 02/07/17 08:16; Start 02/04/17 at 09:00 Thiamine HCl (Vitamin B-1) 100 mg DAILY PO Last administered on 02/07/17 08:16 ; Start 02/04/17 at 09:00 Chlorhexidine Gluconate (Peridex) 1 ml BID MM Last administered on 02/07/17 08: 16; Start 02/04/17 at 09:00 Multivitamins (Thera M Plus) 1 tab DAILY PO Last administered on 02/07/17 08:16 ; Start 02/04/17 at 09:00 Potassium Chloride (KCl Oral Soln) 20 meq DAILY PEG Last administered on 08:17; Start 02/04/17 at 10:00 Iohexol (Omnipaque 300 Mg/ml) 75 ml 1X ONCE IV Last administered on 02/04/17 13:45; Start 02/04/17 at 13:30; Stop 02/04/17 at 13:31; Status DC Info 1 each 1 each PRN DAILY PRN MC SEE COMMENTS; Start 02/04/17 at 13:15; Stop 02/06/17 at 13:14; Status DC Propofol 100 ml @ 0 mls/hr CONT PRN IV SEE I/O RECORD Last administered on 01:57; Start 02/04/17 at 15:00 Cefepime HCl 2 gm/ Sodium Chloride 100 ml @ 200 mls/hr Q8HRS IV Last administered on 02/06/17 13:24; Start 02/05/17 at 08:00; Stop 02/06/17 at 19:12; Status DC Metronidazole (FLAGYL 500Mmg PREMIX) 100 ml @ 100 mls/hr Q8HRS IV Last administered on 02/06/17 14:16; Start 02/05/17 at 08:00; Stop 02/06/17 at 19:12; Status DC Loperamide HCl (Imodium) 2 mg PRN Q1HR PRN PEG DIARRHEA; Start 02/05/17 at 10:30 Morphine Sulfate (Morphine Oral Solution) 10 mg PRN Q3HRS PRN PO PAIN; Start at 08:45 Morphine Sulfate 2 mg PRN Q2HR PRN IV PAIN; Start 02/06/17 at 08:45 Lorazepam (Ativan) 0.5 mg PRN Q8HRS PRN PO ANXIETY / AGITATION; Start 02/06/17 at 08:45 Scopolamine (Transderm-Scop) 1 patch Q3DAYS TD Last administered on 02/06/17t 09 :34; Start 02/06/17 at 09:00 Potassium Chloride (KCl Oral Soln) 20 meq 1X ONCE PEG ; Start 02/07/17 at 09:30 ; Stop 02/07/17 at 09:31; Status DC Active Scripts Active Reported Duoneb 0.5-3(2.5) Mg/3 Ml (Albuterol/Ipratropium) 3 Ml Ampul.neb 3 Ml NEB QID Hydrocodone-Apap 5-325 (Hydrocodone Bit/Acetaminophen) 1 Each Tablet 0.5 Tab PO PRN Q4HRS PRN Amiodarone Hcl 200 Mg Tablet 1 Tab PO DAILY Aspirin 81 Mg Tab.chew 1 Tab PO DAILY Bisacodyl 10 Mg Supp.rect 10 Mg RC PRN BID PRN Chlorhexidine Flavor (Chlorhexidine) 1 Ml Liquid 1 Ml MC BID Folic Acid 1 Mg Tablet 1 Tab PO DAILY Furosemide 40 Mg Tablet 1 Tab PO DAILY Multi-Vitamin Daily (Multivitamin) 1 Each Tablet 1 Each PO DAILY16 Thiamine Hcl 100 Mg Tablet 100 Mg PO DAILY Prednisone 10 Mg Tablet 10 Mg PO DAILY Acetaminophen 325 Mg Tablet 650 Mg PO PRN Q6HRS PRN Famotidine 20 Mg Tablet 20 Mg PO BID Levofloxacin-D5w 250 Mg/50 Ml (Levofloxacin/D5w) 250 Mg/50 Ml Piggyback 250 Mg IV Q24H Piperacil-Tazobact 3.375 Gm Vl (Piperacillin Sodium/Tazobactam) 3.375 Gm Vial 3.375 Gm IV Q6HRS Vancomycin Hcl 1 Gm Vial 1 Gm IV DAILY Vitals/I & O Vital Sign - Last 24 Hours 02/06/17 02/06/17 02/06/17 02/06/17 10:00 11:00 12:00 12:00 Temp 99.8 99.8 Pulse 125 106 98 Resp 25 26 27 B/P 147/80 142/68 123/64 Pulse Ox 100 100 100 O2 Delivery Ventilator Ventilator Mechanical Ventilator Ventilator 02/06/17 02/06/17 02/06/17 02/06/17 12:15 13:00 13:42 14:00 Pulse 98 110 Resp 18 24 B/P 116/78 140/87 Pulse Ox 100 100 100 100 O2 Delivery Ventilator Ventilator Ventilator Ventilator 02/06/17 02/06/1702/06/02/06/17 15:00 15:59 16:00 16:00 Temp 99.1 99.1 Pulse 107 114 Resp 29 35 B/P 149/85 136/72 Pulse Ox 100 100 100 O2 Delivery Ventilator Ventilator Ventilator Mechanical Ventilator 02/06/17 02/06/17 02/06/17 02/06/17 17:00 17:34 18:00 19:00 Pulse 118 111 130 Resp 24 25 29 B/P 125/78 139/89 150/81 Pulse Ox 100 100 100 100 O2 Delivery Ventilator Ventilator Ventilator Ventilator 02/06/17 02/06/17 02/06/17 02/06/17 20:00 20:00 20:14 21:00 Temp 98.8 98.8 Pulse 94 108 Resp 17 18 B/P 102/63 117/72 Pulse Ox 100 100 100 O2 Delivery Mechanical Ventilator Ventilator Ventilator Ventilator 02/06/17 02/06/17 02/06/17 02/07/17 22:00 23:00 23:37 00:00 Temp 98.2 98.2 Pulse 89 90 92 Resp 16 16 16 B/P 117/80 123/73 119/62 Pulse Ox 100 100 100 100 O2 Delivery Ventilator Ventilator Ventilator Ventilator 02/07/17 02/07/1702/07/02/07/17 00:00 01:00 02:00 02:01 Pulse 89 92 Resp 17 16 B/P 116/63 116/62 Pulse Ox 100 100 100 O2 Delivery Mechanical Ventilator Ventilator Ventilator Ventilator 02/07/17 02/07/17 02/07/17 02/07/17 03:00 04:00 04:00 05:00 Temp 98.2 98.2 Pulse 99 90 96 Resp 17 17 16 B/P 118/61 115/62 126/73 Pulse Ox 100 100 100 O2 Delivery Ventilator Mechanical Ventilator Ventilator Ventilator 02/07/17 02/07/17 02/07/17 02/07/17 05:37 06:00 07:00 08:00 Temp 98.8 98.8 Pulse 98 87 Resp 14 14 B/P 104/54 114/68 Pulse Ox 100 100 100 O2 Delivery Ventilator Ventilator Ventilator Mechanical Ventilator 02/07/17 02/07/17 02/07/17 02/07/17 08:00 08:16 08:16 09:00 Pulse 92 98 88 Resp 15 14 B/P 121/66 104/54 123/76 Pulse Ox 100 100 100 O2 Delivery Ventilator Ventilator Ventilator Intake and Output 02/06/17 02/06/17 02/07/17 15:00 23:00 07:00 Intake Total 170 ml 120 ml 1249 ml Output Total 1475 ml 504 ml 215 ml Balance -1305 ml -384 ml 1034 ml EDWIN WALLACE MD Feb 07, 2017 09:46
--- NOTE | 2017-02-07 10:28 | PDOC ---
PROGRESS NOTES Chief Complaint Chief Complaint 1. Lung CA stage 4 with mets 2. Dysphagia and chronic encephalopathy with indwelling trach and PEG 3. 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 S/p sepsis 5. SIRS, possibly new sepsis again 6. AOCD 7. LEukocytosis 8. Thrombocytopenia 9. DNR 10. Precipitous drop in hgb (02/05/17) History of Present Illness History of Present Illness NOn verbal, o sedation - on the vent via trach I am unable to appreciate pupillary rxn to light Cooper in Trach and pEG Rectal tube in, minimal fecaloid matl but is liquidy Scrotum enlarged LAsix 20 IV x 1 today and 200cc UO out ON lasix via PEG too daily FAm will do comfort care today 3 PM PLAN: cont hospice bundle DNR Stop labs STop multivitamins and PPI - on TF already [facility] [employer]ACT[facility] [employer] ASST SW for hospice arrangements Vitals Vitals Vital Signs Date Time Temp Pulse Resp B/P Pulse Ox O2 Delivery O2 Flow Rate FiO2 02/07/17 09:00 88 14 123/76 100 Ventilator 02/07/17 07:00 98.8 98.8 Physical Exam General: Other (unresponsive) Heart: Other (irregualrly irregular, tachycardic) Lungs: Other (decrease bs) Abdomen: Normal bowel sounds, Soft, Other (pos pEG) Extremities: Other (2+ edema all extremities) Skin: No rashes Labs LABS Laboratory Tests Test 02/07/17 08:30 O2 Saturation 98% (92-99) Arterial Blood pH 7.46 (7.35-7.45) Arterial Blood pCO2 at Patient Temp 41mmHg (35-46) Arterial Blood pO2 at Patient Temp 121mmHg (65-108) Arterial Blood HCO3 29mmol/L (21-28) Arterial Blood Base Excess 5mmol/L (-3-3) FiO2 35 Review of Systems Review of Systems non verbal Assessment and Plan Assessmemt and Plan Problems Medical Problems: (1) Acute respiratory failure Status: Acute Problems: Comment Review of Relevant I have reviewed the following items yon (where applicable) has been applied. Labs Laboratory Tests Test 02/05/17 12:51 02/05/17 20:55 02/05/17 23:25 02/06/17 00:25 Glucose (Fingerstick) 112mg/dL (70-99) White Blood Count 32.1x10^3/uL (4.0-11.0) Red Blood Count 2.65x10^6/uL (4.30-5.70) Hemoglobin 8.5g/dL (13.0-17.5) Hematocrit 26.2% (39.0-53.0) Mean Corpuscular Volume 99fL (79-100) Mean Corpuscular Hemoglobin 32pg (25-35) Mean Corpuscular Hemoglobin Concent 32g/dL (31-37) Red Cell Distribution Width 22.5% (11.5-14.5) Platelet Count 61x10^3/uL (140-400) Nasal Screen MRSA (PCR) Positive (Negative) Clostridium difficile Toxin (PCR) Negative (Negative) Test 02/06/17 06:20 02/06/17 08:00 02/06/17 08:25 02/07/17 08:30 White Blood Count 36.9x10^3/uL (4.0-11.0) Red Blood Count 2.81x10^6/uL (4.30-5.70) Hemoglobin 9.0g/dL (13.0-17.5) Hematocrit 27.7% (39.0-53.0) Mean Corpuscular Volume 99fL (79-100) Mean Corpuscular Hemoglobin 32pg (25-35) Mean Corpuscular Hemoglobin Concent 32g/dL (31-37) Red Cell Distribution Width 22.3% (11.5-14.5) Platelet Count 70x10^3/uL (140-400) Neutrophils (%) (Auto) 88% (31-73) Lymphocytes (%) (Auto) 1% (24-48) Monocytes (%) (Auto) 11% (0-9) Eosinophils (%) (Auto) 0% (0-3) Basophils (%) (Auto) 0% (0-3) Neutrophils # (Auto) 32.2x10^3uL (1.8-7.7) Lymphocytes # (Auto) 0.4x10^3/uL (1.0-4.8) Monocytes # (Auto) 4.1x10^3/uL (0.0-1.1) Eosinophils # (Auto) 0.0x10^3/uL (0.0-0.7) Basophils # (Auto) 0.1x10^3/uL (0.0-0.2) Segmented Neutrophils % 85% (35-66) Band Neutrophils % 1% (0-9) Lymphocytes % 2% (24-48) Monocytes % 11% (0-10) Metamyelocytes % 1% (0-0) Platelet Estimate Decreased (ADEQUATE) Poikilocytosis Present Basophilic Stippling Present Anisocytosis Mod Ovalocytes Present O2 Saturation 98% (92-99) 98% (92-99) Arterial Blood pH 7.46 (7.35-7.45) 7.46 (7.35-7.45) Arterial Blood pCO2 at Patient Temp 39mmHg (35-46) 41mmHg (35-46) Arterial Blood pO2 at Patient Temp 119mmHg (65-108) 121mmHg (65-108) Arterial Blood HCO3 28mmol/L (21-28) 29mmol/L (21-28) Arterial Blood Base Excess 4mmol/L (-3-3) 5mmol/L (-3-3) FiO2 35 35 Sodium Level 146mmol/L (136-145) Potassium Level 3.4mmol/L (3.5-5.1) Chloride Level 108mmol/L (98-107) Carbon Dioxide Level 31mmol/L (21-32) Anion Gap 7 (6-14) Blood Urea Nitrogen 27mg/dL (8-26) Creatinine 0.8mg/dL (0.7-1.3) Estimated GFR (Cockcroft-Gault) 93.5 BUN/Creatinine Ratio 34 (6-20) Glucose Level 163mg/dL (70-99) Calcium Level 8.3mg/dL (8.5-10.1) Total Bilirubin 0.8mg/dL (0.2-1.0) Aspartate Amino Transf (AST/SGOT) 19U/L (15-37) Alanine Aminotransferase (ALT/SGPT) 26U/L (16-63) Alkaline Phosphatase 111U/L (46-116) Total Protein 5.3g/dL (6.4-8.2) Albumin 1.7g/dL (3.4-5.0) Albumin/Globulin Ratio 0.5 (1.0-1.7) Laboratory Tests Test 02/07/17 08:30 O2 Saturation 98% (92-99) Arterial Blood pH 7.46 (7.35-7.45) Arterial Blood pCO2 at Patient Temp 41mmHg (35-46) Arterial Blood pO2 at Patient Temp 121mmHg (65-108) Arterial Blood HCO3 29mmol/L (21-28) Arterial Blood Base Excess 5mmol/L (-3-3) FiO2 35 Microbiology 02/04/17 Blood Culture - Preliminary, Resulted NO GROWTH AFTER 3 DAYS Medications Current Medications Vancomycin HCl 1 each 1 each PRN DAILY PRN MC SEE COMMENTS Last administered on 02/03/17 16:14; Start 02/03/17 at 16:00; Stop 02/04/17 at 07:12; Status DC Piperacillin Sod/ Tazobactam Sod 3.375 gm/Sodium Chloride 50 ml @ 100 mls/hr Q6HRS IV Last administered on 02/05/17 05:53; Start 02/03/17 at 18:00; Stop 02/05 at 07:56; Status DC Micafungin Sodium 100 mg/Dextrose 100 ml @ 100 mls/hr Q24H IV Last administered on 02/06/17 16:32; Start 02/03/17 at 16:00; Stop 02/06/17 at 19:12; Status DC Vancomycin HCl 1.75 gm/Sodium Chloride 500 ml @ 250 mls/hr 1X ONCE IV ; Start 02/03/17 at 16:30; Stop 02/03/17 at 18:29; Status Cancel Vancomycin HCl/ Sodium Chloride (Iv Sodium Chloride 0.9% 250ml) 250 ml @ 250 mls/hr Q24H IV Last administered on 02/03/17 17:22; Start 02/03/17 at 17:00; Stop 02/04/17 at 07:12; Status DC Acetaminophen 650 mg 650 mg PRN Q6HRS PRN PEG MILD PAIN / TEMP Last administered on 02/05/17 00:50; Start 02/03/17 at 23:45 Linezolid (Zyvox Premix) 300 ml @ 300 mls/hr Q12HR IV Last administered on 02/06 08:52; Start 02/04/17 at 09:00; Stop 02/06/17 at 19:12; Status DC Ondansetron HCl (Zofran) 4 mg PRN Q6HRS PRN IV NAUSEA/VOMITING; Start 02/04/17 at 08:00 Pantoprazole Sodium (Protonix Vial) 40 mg DAILYAC IVP ; Start 02/04/17 at 09:00; Stop 02/04/17 at 11:30; Status DC Amiodarone HCl (Cordarone) 200 mg DAILY PO Last administered on 02/07/17 08:16 ; Start 02/04/17 at 09:00 Bisacodyl (Dulcolax Supp) 10 mg PRN BID PRN RC CONSTIPATION; Start 02/04/17 at 08:00 Famotidine (Pepcid) 20 mg BID PO Last administered on 02/07/17 08:16; Start 02/04/17 at 09:00 Folic Acid (Folic Acid) 1 mg DAILY PO Last administered on 02/07/17 08:16; Start 02/04/17 at 09:00 Furosemide (Lasix) 40 mg DAILY PO Last administered on 02/07/17 08:26; Start at 09:00 Acetaminophen/ Hydrocodone Bitart (Lortab 5/325) 0.5 tab PRN Q4HRS PRN PO PAIN ; Start 02/04/17 at 08:00 Albuterol/ Ipratropium (Duoneb) 3 ml QID NEB Last administered on 02/07/17 08: 16; Start 02/04/17 at 09:00 Prednisone (Prednisone) 10 mg DAILY PO Last administered on 02/07/17 08:16; Start 02/04/17 at 09:00 Thiamine HCl (Vitamin B-1) 100 mg DAILY PO Last administered on 02/07/17 08:16 ; Start 02/04/17 at 09:00 Chlorhexidine Gluconate (Peridex) 1 ml BID MM Last administered on 02/07/17 08: 16; Start 02/04/17 at 09:00 Multivitamins (Thera M Plus) 1 tab DAILY PO Last administered on 02/07/17 08:16 ; Start 02/04/17 at 09:00 Potassium Chloride (KCl Oral Soln) 20 meq DAILY PEG Last administered on 08:17; Start 02/04/17 at 10:00 Iohexol (Omnipaque 300 Mg/ml) 75 ml 1X ONCE IV Last administered on 02/04/17 13:45; Start 02/04/17 at 13:30; Stop 02/04/17 at 13:31; Status DC Info 1 each 1 each PRN DAILY PRN MC SEE COMMENTS; Start 02/04/17 at 13:15; Stop 02/06/17 at 13:14; Status DC Propofol 100 ml @ 0 mls/hr CONT PRN IV SEE I/O RECORD Last administered on 01:57; Start 02/04/17 at 15:00 Cefepime HCl 2 gm/ Sodium Chloride 100 ml @ 200 mls/hr Q8HRS IV Last administered on 02/06/17 13:24; Start 02/05/17 at 08:00; Stop 02/06/17 at 19:12; Status DC Metronidazole (FLAGYL 500Mmg PREMIX) 100 ml @ 100 mls/hr Q8HRS IV Last administered on 02/06/17 14:16; Start 02/05/17 at 08:00; Stop 02/06/17 at 19:12; Status DC Loperamide HCl (Imodium) 2 mg PRN Q1HR PRN PEG DIARRHEA; Start 02/05/17 at 10:30 Morphine Sulfate (Morphine Oral Solution) 10 mg PRN Q3HRS PRN PO PAIN; Start at 08:45 Morphine Sulfate 2 mg PRN Q2HR PRN IV PAIN; Start 02/06/17 at 08:45 Lorazepam (Ativan) 0.5 mg PRN Q8HRS PRN PO ANXIETY / AGITATION; Start 02/06/17 at 08:45 Scopolamine (Transderm-Scop) 1 patch Q3DAYS TD Last administered on 02/06/17 09 :34; Start 02/06/17 at 09:00 Potassium Chloride (KCl Oral Soln) 20 meq 1X ONCE PEG ; Start 02/07/17 at 09:30 ; Stop 02/07/17 at 09:31; Status DC Active Scripts Active Reported Duoneb 0.5-3(2.5) Mg/3 Ml (Albuterol/Ipratropium) 3 Ml Ampul.neb 3 Ml NEB QID Hydrocodone-Apap 5-325 (Hydrocodone Bit/Acetaminophen) 1 Each Tablet 0.5 Tab PO PRN Q4HRS PRN Amiodarone Hcl 200 Mg Tablet 1 Tab PO DAILY Aspirin 81 Mg Tab.chew 1 Tab PO DAILY Bisacodyl 10 Mg Supp.rect 10 Mg RC PRN BID PRN Chlorhexidine Flavor (Chlorhexidine) 1 Ml Liquid 1 Ml MC BID Folic Acid 1 Mg Tablet 1 Tab PO DAILY Furosemide 40 Mg Tablet 1 Tab PO DAILY Multi-Vitamin Daily (Multivitamin) 1 Each Tablet 1 Each PO DAILY16 Thiamine Hcl 100 Mg Tablet 100 Mg PO DAILY Prednisone 10 Mg Tablet 10 Mg PO DAILY Acetaminophen 325 Mg Tablet 650 Mg PO PRN Q6HRS PRN Famotidine 20 Mg Tablet 20 Mg PO BID Levofloxacin-D5w 250 Mg/50 Ml (Levofloxacin/D5w) 250 Mg/50 Ml Piggyback 250 Mg IV Q24H Piperacil-Tazobact 3.375 Gm Vl (Piperacillin Sodium/Tazobactam) 3.375 Gm Vial 3.375 Gm IV Q6HRS Vancomycin Hcl 1 Gm Vial 1 Gm IV DAILY Vitals/I & O Vital Sign - Last 24 Hours 02/06/17 02/06/17 02/06/17 02/06/17 11:00 12:00 12:00 12:15 Temp 99.8 99.8 Pulse 106 98 Resp 26 27 B/P 142/68 123/64 Pulse Ox 100 100 100 O2 Delivery Ventilator Mechanical Ventilator Ventilator Ventilator 02/06/17 02/06/17 02/06/17 02/06/17 13:00 13:42 14:00 15:00 Pulse 98 110 107 Resp 18 24 29 B/P 116/78 140/87 149/85 Pulse Ox 100 100 100 100 O2 Delivery Ventilator Ventilator Ventilator Ventilator 02/06/17 02/06/17 02/06/17 02/06/17 15:59 16:00 16:00 17:00 Temp 99.1 99.1 Pulse 114 118 Resp 35 24 B/P 136/72 125/78 Pulse Ox 100 100 100 O2 Delivery Ventilator Ventilator Mechanical Ventilator Ventilator 02/06/17 02/06/17 02/06/17 02/06/17 17:34 18:00 19:00 20:00 Pulse 111 130 Resp 25 29 B/P 139/89 150/81 Pulse Ox 100 100 100 O2 Delivery Ventilator Ventilator Ventilator Mechanical Ventilator 02/06/17 02/06/17 02/06/17 02/06/17 20:00 20:14 21:00 22:00 Temp 98.8 98.8 Pulse 94 108 89 Resp 17 18 16 B/P 102/63 117/72 117/80 Pulse Ox 100 100 100 100 O2 Delivery Ventilator Ventilator Ventilator Ventilator 02/06/17 02/06/17 02/07/17 02/07/17 23:00 23:37 00:00 00:00 Temp 98.2 98.2 Pulse 90 92 Resp 16 16 B/P 123/73 119/62 Pulse Ox 100 100 100 O2 Delivery Ventilator Ventilator Ventilator Mechanical Ventilator 02/07/17 02/07/17 02/07/17 02/07/17 01:00 02:00 02:01 03:00 Pulse 89 92 99 Resp 17 16 17 B/P 116/63 116/62 118/61 Pulse Ox 100 100 100 100 O2 Delivery Ventilator Ventilator Ventilator Ventilator 02/07/17 02/07/17 02/07/17 02/07/17 04:00 04:00 05:00 05:37 Temp 98.2 98.2 Pulse 90 96 Resp 17 16 B/P 115/62 126/73 Pulse Ox 100 100 100 O2 Delivery Mechanical Ventilator Ventilator Ventilator Ventilator 02/07/17 02/07/17 02/07/17 02/07/17 06:00 07:00 08:00 08:00 Temp 98.8 98.8 Pulse 98 87 92 Resp 14 14 15 B/P 104/54 114/68 121/66 Pulse Ox 100 100 100 O2 Delivery Ventilator Ventilator Mechanical Ventilator Ventilator 02/07/17 02/07/17 02/07/17 08:16 08:16 09:00 Pulse 98 88 Resp 14 B/P 104/54 123/76 Pulse Ox 100 100 O2 Delivery Ventilator Ventilator Intake and Output 02/06/17 02/06/17 02/07/17 15:00 23:00 07:00 Intake Total 170 ml 120 ml 1249 ml Output Total 1475 ml 504 ml 215 ml Balance -1305 ml -384 ml 1034 ml Nutrition Consultation Dietary Evaluation: Recommendations by RD: Increase Calorie Intake, PPN/TPN Comments: Pt has TF's ordered, however did not tolerate them Plans to withdrawl care today at 1500 No further nutrition interventions planned at this time- please reconsult if further needs arise Expected Outcomes/Goals: Comfort care per family Malnutrition Findings: Reduced Human Factors Ergonomist Strength: N/A Malnutrition related to morbid: No Weight Status: Appropriate BARRY SILVEIRA MD Feb 07, 2017 10:28
--- NOTE | 2017-02-07 12:41 | PDOC ---
PULMONARY PROGRESS NOTES Subjective no change AC mode Vitals Vital Signs Date Time Temp Pulse Resp B/P Pulse Ox O2 Delivery O2 Flow Rate FiO2 02/07/17 12:02 98 Ventilator 02/07/17 11:04 98.8 108 20 101/83 98.8 Lungs: Other (decrease bs) Cardiovascular: S1 Abdomen: Soft Extremities: Other (1+edema) Skin: Warm Labs Laboratory Tests Test 02/05/17 12:51 02/05/17 20:55 02/05/17 23:25 02/06/17 00:25 Glucose (Fingerstick) 112mg/dL (70-99) White Blood Count 32.1x10^3/uL (4.0-11.0) Red Blood Count 2.65x10^6/uL (4.30-5.70) Hemoglobin 8.5g/dL (13.0-17.5) Hematocrit 26.2% (39.0-53.0) Mean Corpuscular Volume 99fL (79-100) Mean Corpuscular Hemoglobin 32pg (25-35) Mean Corpuscular Hemoglobin Concent 32g/dL (31-37) Red Cell Distribution Width 22.5% (11.5-14.5) Platelet Count 61x10^3/uL (140-400) Nasal Screen MRSA (PCR) Positive (Negative) Clostridium difficile Toxin (PCR) Negative (Negative) Test 02/06/17 06:20 02/06/17 08:00 02/06/17 08:25 02/07/17 08:30 White Blood Count 36.9x10^3/uL (4.0-11.0) Red Blood Count 2.81x10^6/uL (4.30-5.70) Hemoglobin 9.0g/dL (13.0-17.5) Hematocrit 27.7% (39.0-53.0) Mean Corpuscular Volume 99fL (79-100) Mean Corpuscular Hemoglobin 32pg (25-35) Mean Corpuscular Hemoglobin Concent 32g/dL (31-37) Red Cell Distribution Width 22.3% (11.5-14.5) Platelet Count 70x10^3/uL (140-400) Neutrophils (%) (Auto) 88% (31-73) Lymphocytes (%) (Auto) 1% (24-48) Monocytes (%) (Auto) 11% (0-9) Eosinophils (%) (Auto) 0% (0-3) Basophils (%) (Auto) 0% (0-3) Neutrophils # (Auto) 32.2x10^3uL (1.8-7.7) Lymphocytes # (Auto) 0.4x10^3/uL (1.0-4.8) Monocytes # (Auto) 4.1x10^3/uL (0.0-1.1) Eosinophils # (Auto) 0.0x10^3/uL (0.0-0.7) Basophils # (Auto) 0.1x10^3/uL (0.0-0.2) Segmented Neutrophils % 85% (35-66) Band Neutrophils % 1% (0-9) Lymphocytes % 2% (24-48) Monocytes % 11% (0-10) Metamyelocytes % 1% (0-0) Platelet Estimate Decreased (ADEQUATE) Poikilocytosis Present Basophilic Stippling Present Anisocytosis Mod Ovalocytes Present O2 Saturation 98% (92-99) 98% (92-99) Arterial Blood pH 7.46 (7.35-7.45) 7.46 (7.35-7.45) Arterial Blood pCO2 at Patient Temp 39mmHg (35-46) 41mmHg (35-46) Arterial Blood pO2 at Patient Temp 119mmHg (65-108) 121mmHg (65-108) Arterial Blood HCO3 28mmol/L (21-28) 29mmol/L (21-28) Arterial Blood Base Excess 4mmol/L (-3-3) 5mmol/L (-3-3) FiO2 35 35 Sodium Level 146mmol/L (136-145) Potassium Level 3.4mmol/L (3.5-5.1) Chloride Level 108mmol/L (98-107) Carbon Dioxide Level 31mmol/L (21-32) Anion Gap 7 (6-14) Blood Urea Nitrogen 27mg/dL (8-26) Creatinine 0.8mg/dL (0.7-1.3) Estimated GFR (Cockcroft-Gault) 93.5 BUN/Creatinine Ratio 34 (6-20) Glucose Level 163mg/dL (70-99) Calcium Level 8.3mg/dL (8.5-10.1) Total Bilirubin 0.8mg/dL (0.2-1.0) Aspartate Amino Transf (AST/SGOT) 19U/L (15-37) Alanine Aminotransferase (ALT/SGPT) 26U/L (16-63) Alkaline Phosphatase 111U/L (46-116) Total Protein 5.3g/dL (6.4-8.2) Albumin 1.7g/dL (3.4-5.0) Albumin/Globulin Ratio 0.5 (1.0-1.7) Test 02/07/17 12:30 Glucose (Fingerstick) 112mg/dL (70-99) Laboratory Tests Test 02/07/17 08:30 02/07/17 12:30 O2 Saturation 98% (92-99) Arterial Blood pH 7.46 (7.35-7.45) Arterial Blood pCO2 at Patient Temp 41mmHg (35-46) Arterial Blood pO2 at Patient Temp 121mmHg (65-108) Arterial Blood HCO3 29mmol/L (21-28) Arterial Blood Base Excess 5mmol/L (-3-3) FiO2 35 Glucose (Fingerstick) 112mg/dL (70-99) Medications Active Scripts Medications Dose Route/Sig Days Date Category Duoneb 0.5-3(2.5) Mg/3 Ml (Albuterol/Ipratropium) 3 Ml Ampul.neb 3 Ml NEB QID 02/03/17 Reported Hydrocodone-Apap 5-325 (Hydrocodone Bit/Acetaminophen) 1 Each Tablet 0.5 Tab PO PRN Q4HRS PRN 02/03/17 Reported Amiodarone Hcl 200 Mg Tablet 1 Tab PO DAILY 02/03/17 Reported Aspirin 81 Mg Tab.chew 1 Tab PO DAILY 02/03/17 Reported Bisacodyl 10 Mg Supp.rect 10 Mg RC PRN BID PRN 02/03/17 Reported Chlorhexidine Flavor (Chlorhexidine) 1 Ml Liquid 1 Ml MC BID 02/03/17 Reported Folic Acid 1 Mg Tablet 1 Tab PO DAILY 02/03/17 Reported Furosemide 40 Mg Tablet 1 Tab PO DAILY 02/03/17 Reported Multi-Vitamin Daily (Multivitamin) 1 Each Tablet 1 Each PO DAILY16 02/03/17 Reported Thiamine Hcl 100 Mg Tablet 100 Mg PO DAILY 02/03/17 Reported Prednisone 10 Mg Tablet 10 Mg PO DAILY 02/03/17 Reported Acetaminophen 325 Mg Tablet 650 Mg PO PRN Q6HRS PRN 02/03/17 Reported Famotidine 20 Mg Tablet 20 Mg PO BID 02/03/17 Reported Levofloxacin-D5w 250 Mg/50 Ml (Levofloxacin/D5w) 250 Mg/50 Ml Piggyback 250 Mg IV Q24H 02/03/17 Reported Piperacil-Tazobact 3.375 Gm Vl (Piperacillin Sodium/Tazobactam) 3.375 Gm Vial 3.375 Gm IV Q6HRS 02/03/17 Reported Vancomycin Hcl 1 Gm Vial 1 Gm IV DAILY 02/03/17 Reported Impression . 1. Acute on chronic respiratory failure, multifactorial secondary to new onset sepsis./ new CVA vs brain mets 2. History of methicillin-resistant Staph aureus pneumonia. BAL was performed on 01/17/2017, revealing methicillin resistant Staphylococcus aureus, cytology was negative for malignant cells. 3. New onset atrial fibrillation. 4. Metabolic toxic encephalopathy. 5. Cerebral arachnoid cyst, previously evaluated by Neurosurgery. No intervention was required or recommended. 6. Coronary artery disease with previous stent placement. 7. Severe protein malnutrition. 8. Alcoholism. 9. Status post tracheotomy. 10. Persistent encephalopathy Plan . AC mode, No change WITHDRAWL OF CARE TODAY NAVEEN CELESTIN MD Feb 07, 2017 12:41
[2017-02-07] MEDS: MORPHINE SULFATE 2 MG/ML DISP.SYRIN. IV PRN ×2 (14:45→15:25)
[2017-02-07] MEDS ORDERED: MORPHINE SULFATE 2 MG/ML DISP.SYRIN. IV PRN (15:15)
[2017-02-07] MEDS ORDERED: FENTANYL PF 100 MCG/2 ML VIAL. IV PRN (15:15)
[2017-02-07] MEDS ORDERED: MORPHINE SULFATE 10 MG/ML VIAL. IV PRN (16:00)
[2017-02-08 03:00] VITALS: BP 112/28
[2017-02-08 07:00] VITALS: BP 114/57
[2017-02-08] MEDS: IPRATRPIUM/ALBUTEROL 0.5/2.5MG 3 ML NEBU. NEB SCH (09:04)
[2017-02-08] MEDS: CHLORHEXIDINE 0.12% 15 ML MOUTHWASH. MM SCH (09:45)
--- NOTE | 2017-02-08 11:01 | PDOC ---
Provider Note Provider Note Patient appeared comfortable, in between seeing the patient and dictating this note, the patient did . EDWIN WALLACE MD Feb 08, 2017 11:01
--- NOTE | 2017-02-08 11:12 | PDOC ---
PROGRESS NOTES Subjective Subjective I was notified by RN that patient had stopped respirations. per my eval, no response to verbal or painful no resp. movement or sounds no pulse, time of 1043am Objective Objective Vital Signs Date Time Temp Pulse Resp B/P Pulse Ox O2 Delivery O2 Flow Rate FiO2 02/08/17 09:05 91 Tracheal Collar 10.0 02/08/17 07:00 98.1 91 10 114/57 98.1 Intake and Output 02/08/17 07:00 Intake Total 70 ml Output Total 1253 ml Balance -1183 ml IV Total 70 ml Tube Feeding 0 ml Output Urine Total 1253 ml Assessment Assessment 1. Lung CA stage 4 with metastatic disease 2. Dysphagia and chronic encephalopathy with indwelling trach and PEG 3. Mod to severe PCM 4. sepsis 5. DNR Problems Medical Problems: (1) Acute respiratory failure Status: Acute Comment Review of Relevant I have reviewed the following items yon (where applicable) has been applied. Labs Laboratory Tests Test 02/07/17 08:30 02/07/17 12:30 O2 Saturation 98% (92-99) Arterial Blood pH 7.46 (7.35-7.45) Arterial Blood pCO2 at Patient Temp 41mmHg (35-46) Arterial Blood pO2 at Patient Temp 121mmHg (65-108) Arterial Blood HCO3 29mmol/L (21-28) Arterial Blood Base Excess 5mmol/L (-3-3) FiO2 35 Glucose (Fingerstick) 112mg/dL (70-99) Laboratory Tests Test 02/07/17 12:30 Glucose (Fingerstick) 112mg/dL (70-99) Microbiology 02/04/17 Blood Culture - Preliminary, Resulted NO GROWTH AFTER 4 DAYS Medications Current Medications Vancomycin HCl 1 each 1 each PRN DAILY PRN MC SEE COMMENTS Last administered on 02/03/17 16:14; Start 02/03/17 at 16:00; Stop 02/04/17 at 07:12; Status DC Piperacillin Sod/ Tazobactam Sod 3.375 gm/Sodium Chloride 50 ml @ 100 mls/hr Q6HRS IV Last administered on 02/05/17 05:53; Start 02/03/17 at 18:00; Stop 02/05 at 07:56; Status DC Micafungin Sodium 100 mg/Dextrose 100 ml @ 100 mls/hr Q24H IV Last administered on 02/06/17 16:32; Start 02/03/17 at 16:00; Stop 02/06/17 at 19:12; Status DC Vancomycin HCl 1.75 gm/Sodium Chloride 500 ml @ 250 mls/hr 1X ONCE IV ; Start 02/03/17 at 16:30; Stop 02/03/17 at 18:29; Status Cancel Vancomycin HCl/ Sodium Chloride (Iv Sodium Chloride 0.9% 250ml) 250 ml @ 250 mls/hr Q24H IV Last administered on 02/03/17 17:22; Start 02/03/17 at 17:00; Stop 02/04/17 at 07:12; Status DC Acetaminophen 650 mg 650 mg PRN Q6HRS PRN PEG MILD PAIN / TEMP Last administered on 02/05/17 00:50; Start 02/03/17 at 23:45 Linezolid (Zyvox Premix) 300 ml @ 300 mls/hr Q12HR IV Last administered on 02/06 08:52; Start 02/04/17 at 09:00; Stop 02/06/17 at 19:12; Status DC Ondansetron HCl (Zofran) 4 mg PRN Q6HRS PRN IV NAUSEA/VOMITING; Start 02/04/17 at 08:00 Pantoprazole Sodium (Protonix Vial) 40 mg DAILYAC IVP ; Start 02/04/17 at 09:00; Stop 02/04/17 at 11:30; Status DC Amiodarone HCl (Cordarone) 200 mg DAILY PO Last administered on 02/07/17 08:16 ; Start 02/04/17 at 09:00; Stop 02/07/17 at 15:43; Status DC Bisacodyl (Dulcolax Supp) 10 mg PRN BID PRN RC CONSTIPATION; Start 02/04/17 at 08:00 Famotidine (Pepcid) 20 mg BID PO Last administered on 02/07/17 08:16; Start 02/04/17 at 09:00; Stop 02/07/17 at 10:26; Status DC Folic Acid (Folic Acid) 1 mg DAILY PO Last administered on 02/07/17 08:16; Start 02/04/17 at 09:00; Stop 02/07/17 at 10:26; Status DC Furosemide (Lasix) 40 mg DAILY PO Last administered on 02/07/17 08:26; Start at 09:00; Stop 02/07/17 at 15:43; Status DC Acetaminophen/ Hydrocodone Bitart (Lortab 5/325) 0.5 tab PRN Q4HRS PRN PO PAIN ; Start 02/04/17 at 08:00 Albuterol/ Ipratropium (Duoneb) 3 ml QID NEB Last administered on 02/08/17 09: 04; Start 02/04/17 at 09:00 Prednisone (Prednisone) 10 mg DAILY PO Last administered on 02/07/17 08:16; Start 02/04/17 at 09:00; Stop 02/07/17 at 15:43; Status DC Thiamine HCl (Vitamin B-1) 100 mg DAILY PO Last administered on 02/07/17 08:16 ; Start 02/04/17 at 09:00; Stop 02/07/17 at 10:26; Status DC Chlorhexidine Gluconate (Peridex) 1 ml BID MM Last administered on 02/08/17 09: 45; Start 02/04/17 at 09:00 Multivitamins (Thera M Plus) 1 tab DAILY PO Last administered on 02/07/17 08:16 ; Start 02/04/17 at 09:00; Stop 02/07/17 at 15:43; Status DC Potassium Chloride (KCl Oral Soln) 20 meq DAILY PEG Last administered on 08:17; Start 02/04/17 at 10:00; Stop 02/07/17 at 15:43; Status DC Iohexol (Omnipaque 300 Mg/ml) 75 ml 1X ONCE IV Last administered on 02/04/17 13:45; Start 02/04/17 at 13:30; Stop 02/04/17 at 13:31; Status DC Info 1 each 1 each PRN DAILY PRN MC SEE COMMENTS; Start 02/04/17 at 13:15; Stop 02/06/17 at 13:14; Status DC Propofol 100 ml @ 0 mls/hr CONT PRN IV SEE I/O RECORD Last administered on 01:57; Start 02/04/17 at 15:00; Stop 02/07/17 at 10:26; Status DC Cefepime HCl 2 gm/ Sodium Chloride 100 ml @ 200 mls/hr Q8HRS IV Last administered on 02/06/17 13:24; Start 02/05/17 at 08:00; Stop 02/06/17 at 19:12; Status DC Metronidazole (FLAGYL 500Mmg PREMIX) 100 ml @ 100 mls/hr Q8HRS IV Last administered on 02/06/17 14:16; Start 02/05/17 at 08:00; Stop 02/06/17 at 19:12; Status DC Loperamide HCl (Imodium) 2 mg PRN Q1HR PRN PEG DIARRHEA; Start 02/05/17 at 10:30 Morphine Sulfate (Morphine Oral Solution) 10 mg PRN Q3HRS PRN PO PAIN; Start at 08:45 Morphine Sulfate 2 mg PRN Q2HR PRN IV PAIN Last administered on 02/07/17 15:25 ; Start 02/06/17 at 08:45 Lorazepam (Ativan) 0.5 mg PRN Q8HRS PRN PO ANXIETY / AGITATION; Start 02/06/17 at 08:45 Scopolamine (Transderm-Scop) 1 patch Q3DAYS TD Last administered on 02/06/17 09 :34; Start 02/06/17 at 09:00 Potassium Chloride (KCl Oral Soln) 20 meq 1X ONCE PEG ; Start 02/07/17 at 09:30 ; Stop 02/07/17 at 10:26; Status DC Morphine Sulfate 5 mg PRN Q15MIN PRN IV PAIN Last administered on 02/07/17 15: 41; Start 02/07/17 at 15:15; Stop 02/07/17 at 15:49; Status DC Fentanyl Citrate (Fentanyl 2ml Vial) 50 mcg PRN Q15MIN PRN IV PAIN Last administered on 02/07/17 15:42; Start 02/07/17 at 15:15 Morphine Sulfate 5 mg PRN Q15MIN PRN IV PAIN Last administered on 02/07/17 16: 38; Start 02/07/17 at 16:00 Active Scripts Active Reported Duoneb 0.5-3(2.5) Mg/3 Ml (Albuterol/Ipratropium) 3 Ml Ampul.neb 3 Ml NEB QID Hydrocodone-Apap 5-325 (Hydrocodone Bit/Acetaminophen) 1 Each Tablet 0.5 Tab PO PRN Q4HRS PRN Amiodarone Hcl 200 Mg Tablet 1 Tab PO DAILY Aspirin 81 Mg Tab.chew 1 Tab PO DAILY Bisacodyl 10 Mg Supp.rect 10 Mg RC PRN BID PRN Chlorhexidine Flavor (Chlorhexidine) 1 Ml Liquid 1 Ml MC BID Folic Acid 1 Mg Tablet 1 Tab PO DAILY Furosemide 40 Mg Tablet 1 Tab PO DAILY Multi-Vitamin Daily (Multivitamin) 1 Each Tablet 1 Each PO DAILY16 Thiamine Hcl 100 Mg Tablet 100 Mg PO DAILY Prednisone 10 Mg Tablet 10 Mg PO DAILY Acetaminophen 325 Mg Tablet 650 Mg PO PRN Q6HRS PRN Famotidine 20 Mg Tablet 20 Mg PO BID Levofloxacin-D5w 250 Mg/50 Ml (Levofloxacin/D5w) 250 Mg/50 Ml Piggyback 250 Mg IV Q24H Piperacil-Tazobact 3.375 Gm Vl (Piperacillin Sodium/Tazobactam) 3.375 Gm Vial 3.375 Gm IV Q6HRS Vancomycin Hcl 1 Gm Vial 1 Gm IV DAILY Vitals/I & O Vital Sign - Last 24 Hours 02/07/17 02/07/17 02/07/17 02/07/17 12:00 12:00 12:02 13:00 Pulse 103 105 Resp 14 22 B/P 63/51 58/42 Pulse Ox 100 98 100 O2 Delivery Mechanical Ventilator Ventilator Ventilator Ventilator 02/07/17 02/07/17 02/07/17 02/07/17 14:00 14:45 15:00 15:10 Pulse 107 104 100 Resp 23 21 28 23 B/P 126/73 Pulse Ox 100 100 100 100 O2 Delivery Ventilator Ventilator Ventilator Tracheal Collar 02/07/17 02/07/17 02/07/17 02/07/17 15:25 15:41 15:42 15:55 Resp 45 45 44 Pulse Ox 100 100 O2 Delivery Tracheal Collar 02/07/17 02/07/17 02/07/17 02/07/17 16:00 16:12 16:12 16:38 Resp 44 44 50 Pulse Ox 100 100 100 O2 Delivery Trach Collar Tracheal Collar Tracheal Collar 02/07/17 02/07/17 02/07/17 02/07/17 17:03 17:07 17:54 19:00 Temp 99.7 98.3 99.7 98.3 Pulse 120 118 99 Resp 30 30 30 10 B/P 137/70 135/67 125/33 Pulse Ox 100 100 100 96 O2 Delivery Tracheal Collar Tracheal Collar Tracheal Collar 02/07/17 02/07/17 02/07/17 02/08/17 19:41 20:00 23:00 03:00 Temp 97.7 97.6 97.7 97.6 Pulse 84 90 Resp 10 10 B/P 116/46 112/28 Pulse Ox 93 97 O2 Delivery Tracheal Collar Trach Collar Tracheal Collar 02/08/17 02/08/17 02/08/17 07:00 08:00 09:05 Temp 98.1 98.1 Pulse 91 Resp 10 B/P 114/57 Pulse Ox 94 91 O2 Delivery Room Air Trach Collar Tracheal Collar O2 Flow Rate 10.0 Intake and Output 02/07/17 02/07/17 02/08/17 15:00 23:00 07:00 Intake Total 0 ml 70 ml Output Total 523 ml 380 ml 350 ml Balance -523 ml -310 ml -350 ml Nutrition Consultation Dietary Evaluation: Recommendations by RD: Increase Calorie Intake, PPN/TPN Comments: Pt has TF's ordered, however did not tolerate them Plans to withdrawl care today at 1500 No further nutrition interventions planned at this time- please reconsult if further needs arise Expected Outcomes/Goals: Comfort care per family Malnutrition Findings: Food and Nutrition Intake (Mod: <75% est energy req 7days Reduced Cattle [employer] Strength: N/A Malnutrition related to morbid: No Weight Status: Appropriate DAMARIS IL MD Feb 08, 2017 11:12
--- NOTE | 2017-02-08 11:24 | PDOC3 ---
Discharge Summary Visit Information Date of Admission: Feb 03, 2017 Date of Discharge: Feb 08, 2017 Admitting Diagnosis: respiratory failure, hypoxic Final Diagnosis 1. Lung cancer stage 4 metastatic 2. Acute on chronic respiratory failure, multifactorial 3. New onset atrial fibrillation. acute diastolic CHF 4. Metabolic toxic encephalopathy. 5. Cerebral arachnoid cyst, 6. Coronary artery disease with previous stent placement. 7. Severe protein malnutrition. 8. Alcoholism. 9. History of methicillin-resistant Staph aureus pneumonia. Problems Medical Problems: (1) Acute respiratory failure Status: Acute Brief Hospital Course Allergies Allergies Coded Allergies Type Severity Reaction Last Updated Verified Tetracyclines Allergy Intermediate 02/07/17 Yes I S O L A T I O N *CONTACT* Allergy Unknown 02/06/17 Yes Vital Signs Vital Signs Date Time Temp Pulse Resp B/P Pulse Ox O2 Delivery O2 Flow Rate FiO2 02/08/17 09:05 91 Tracheal Collar 10.0 02/08/17 07:00 98.1 91 10 114/57 98.1 Lab Results Laboratory Tests Test 02/07/17 08:30 02/07/17 12:30 O2 Saturation 98% (92-99) Arterial Blood pH 7.46 (7.35-7.45) Arterial Blood pCO2 at Patient Temp 41mmHg (35-46) Arterial Blood pO2 at Patient Temp 121mmHg (65-108) Arterial Blood HCO3 29mmol/L (21-28) Arterial Blood Base Excess 5mmol/L (-3-3) FiO2 35 Glucose (Fingerstick) 112mg/dL (70-99) Laboratory Tests Test 02/07/17 12:30 Glucose (Fingerstick) 112mg/dL (70-99) Brief Hospital Course Mr. Dockery is a 76 old that was at [facility], since 2016. developing increasing shortness of breath, w //consolidation in the right upper lobe and some reticular nodular [id number] opacities in the bases on 01/18 at [facility] w. worsened condition, poor resp status and mental status decline, DNR was recommended and palliative became involved on 02/06, palliative care reviewed with family - Respiratory Failure; anoxic encephalopathy; pneumonia; brain lesions unknown etiology; anemia; sepsis; progressive decline . Fmily stopped aggressive treatments 1500. DNR, palliative RR 5 this AM, pt 1042 02/08/17 Discharge Information Condition at Discharge: / Scheduled Amiodarone Hcl (Amiodarone Hcl) 1 TAB PO DAILY (Reported) Aspirin (Aspirin) 1 TAB PO DAILY (Reported) Chlorhexidine (Chlorhexidine Flavor) 1 ML MC BID (Reported) Famotidine (Famotidine) 20 MG PO BID (Reported) Folic Acid (Folic Acid) 1 TAB PO DAILY (Reported) Furosemide (Furosemide) 1 TAB PO DAILY (Reported) Ipratropium/Albuterol Sulfate (Duoneb 0.5-3(2.5) Mg/3 Ml) 3 ML NEB QID (Reported ) Levofloxacin/D5w (Levofloxacin-D5w 250 Mg/50 Ml) 250 MG IV Q24H (Reported) Multivitamin (Multi-Vitamin Daily) 1 EACH PO DAILY16 (Reported) Piperacillin Sodium/Tazobactam (Piperacil-Tazobact 3.375 Gm Vl) 3.375 GM IV Q6HRS (Reported) Prednisone (Prednisone) 10 MG PO DAILY (Reported) Thiamine Hcl (Thiamine Hcl) 100 MG PO DAILY (Reported) Vancomycin Hcl (Vancomycin Hcl) 1 GM IV DAILY (Reported) Scheduled PRN Acetaminophen (Acetaminophen) 650 MG PO PRN Q6HRS PRN PRN PAIN (Reported) Bisacodyl (Bisacodyl) 10 MG RC PRN BID PRN PRN CONSTIPATION (Reported) Hydrocodone Bit/Acetaminophen (Hydrocodone-Apap 5-325 ) 0.5 TAB PO PRN Q4HRS PRN PRN PAIN (Reported) DAMARIS LI MD Feb 08, 2017 11:23
== END 2017-02-08 16:41 | disposition expired | DRG 870 ==
LOC: 1 WEST ICU 15:18 → 5 SOUTH 02-07 18:21
PROVIDERS: ADMIT Internal Medicine; ATTEND Internal Medicine
PROC: 5A1955Z Respiratory Ventilation, Greater than 96 Consecutive Hours (ICD-10-PCS; principal; 2017-02-03)
PROC: 30233N1 Transfusion of Nonautologous Red Blood Cells into Peripheral Vein, Percutaneous Approach (ICD-10-PCS; 2017-02-05)
DX: A41.9 Sepsis, unspecified organism (principal); E43 Unspecified severe protein-calorie malnutrition; G92 Toxic encephalopathy; I50.31 Acute diastolic (congestive) heart failure; J18.9 Pneumonia, unspecified organism; J96.21 Acute and chronic respiratory failure with hypoxia; C34.90 Malignant neoplasm of unspecified part of unspecified bronchus or lung; G93.1 Anoxic brain damage, not elsewhere classified; J44.0 Chronic obstructive pulmonary disease with (acute) lower respiratory infection; D63.8 Anemia in other chronic diseases classified elsewhere; D69.6 Thrombocytopenia, unspecified; E78.5 Hyperlipidemia, unspecified; F10.20 Alcohol dependence, uncomplicated; G93.0 Cerebral cysts; G93.89 Other specified disorders of brain; I11.0 Hypertensive heart disease with heart failure; I25.10 Atherosclerotic heart disease of native coronary artery without angina pectoris; I27.2 Other secondary pulmonary hypertension; I48.91 Unspecified atrial fibrillation; L72.0 Epidermal cyst; N40.0 Benign prostatic hyperplasia without lower urinary tract symptoms; R65.20 Severe sepsis without septic shock; Z51.5 Encounter for palliative care; Z66 Do not resuscitate; M19.90 Unspecified osteoarthritis, unspecified site; Z96.641 Presence of right artificial hip joint; Z68.22 Body mass index [BMI] 22.0-22.9, adult; Z72.0 Tobacco use; Z82.49 Family history of ischemic heart disease and other diseases of the circulatory system; Z86.14 Personal history of Methicillin resistant Staphylococcus aureus infection; I25.2 Old myocardial infarction; Z93.0 Tracheostomy status; Z95.5 Presence of coronary angioplasty implant and graft; Z88.8 Allergy status to other drugs, medicaments and biological substances
CPT/HCPCS: 36415; 36600; 70470; 71010; 71260; 74160; 80053; 81001; 82805; 82947; 83605; 83735; 84145; 85007; 85027; 85610; 86850; 86900; 86901; 86920; 87040; 87324; 87641; 94003; 94640; 94760; J0692; J2020; J2248; J2270; J2543; J2704; J3010; J3370; J3490; J7050; J7512; J7620; P9016; Q9967; J7030